=== PATIENT | female | born 1955 | race Caucasian/White ===

== ENCOUNTER 2017-04-05 18:15 | Emergency (ER) | payer OTHER ==
[~2017-04-05] VITALS: Ht 157.5 cm; Wt 62.5 kg
[~2017-04-05 18:15] MED LIST: ALBUAER2 INH; ASPEC81 PO; ESCI10TA17 PO; FENO48TA9 PO; METF1TAB53 PO; PRM625 PO; PROP1TAB PO; SIMV40TA2 PO
[2017-04-05 18:34] VITALS: TEMP 38.1; Ht 157.5 cm; Wt 62.5 kg
[2017-04-05] MEDS ORDERED: ACETAMINOPHEN 325 MG TAB PO STA (19:29)
[2017-04-05] MEDS ORDERED: SODIUM CHLORIDE 0.9% 1000ML 1,000 ML IV STA (19:29)
[2017-04-05 20:00] LABS: BASO % 0.4 %; BASO ABS # 0.04 K/uL (0-0.2); COMPLETE YES; HEMATOCRIT 37.9 % (37-47); IG% 3.1 %; LYMPH % 24.9 %; LYMPH ABS # 2.33 K/uL (1.2-3.4); MEAN CELL VOLUME 91.1 fL (80-100); MEAN CORPUSCULAR HEMOGLOBIN 30.8 pg (25-34); MEAN CORPUSCULAR HGB CONC 33.8 g/dl (32-36); MONO % 8.8 %; NEUT % 62.8 %; PLATELET COUNT 361 K/uL (130-400); RED BLOOD COUNT 4.16 M/uL (4.2-5.4); WHITE BLOOD COUNT 9.35 K/uL (4.8-10.8)
[2017-04-05 20:19] LABS: BUN/CREATININE RATIO 8.5 (10-20); CREATININE 0.79 mg/dl (0.60-1.20); POTASSIUM 4.1 mmol/L (3.5-5.1)
[2017-04-05 20:49] LABS: LYME DISEASE AB IGG NEG (NEG)
[2017-04-05 20:53] LABS: URINE APPEARANCE CLEAR (CLEAR); URINE BILIRUBIN NEG (NEG); URINE COLOR YELLOW; URINE NITRITE NEG (NEG); URINE SPECIFIC GRAVITY 1.003 (1.000-1.030); UROBILINOGEN NEG (NEG)
[2017-04-05 20:56] LABS: MANUAL MICROSCOPIC REQUIRED? NO; REVIEW REQ? NO
[2017-04-05 20:57] LABS: LYME DISEASE AB IGM EQUIVOCAL (NEG)
[2017-04-05] MEDS ORDERED: ONDANSETRON INJ 2 MG/ML 2 ML VIAL IV STA (20:59)
[2017-04-05] MEDS ORDERED: DOXYCYCLINE HYCLATE 100 MG CAP PO ONE (21:00)
--- NOTE | 2017-04-05 21:10 | DIAGNOSTIC IMAGING REPORT ---
TWO VIEW CHEST CLINICAL HISTORY: Fever. FINDINGS: PA and lateral chest radiographs are compared to study dated 01/16/2012. The heart is mildly enlarged and there is atherosclerotic calcification of the thoracic aorta. Pulmonary basilar is noncongested. Linear atelectasis is seen at both lung bases. The lungs are otherwise clear. No pleural effusion or pneumothorax is identified. The skeletal structures are osteopenic. Degenerative change is seen throughout the thoracic spine. Fusion hardware is noted in the lower cervical spine. Cholestatic clips are identified in the right upper quadrant. IMPRESSION: 1. Cardiomegaly without radiographic evidence of congestive failure. 2. There is no airspace consolidation typical for pneumonia or pleural effusion Electronically signed by: Baltazar Prince M.D. 04/05/2017 9:09 PM Dictated Date/Time: 04/05/2017 9:07 PM
[2017-04-05] MEDS ORDERED: ASPI81TA28 PO (21:16)
[2017-04-05] MEDS ORDERED: ACET325T96 PO (21:16)
[2017-04-05] MEDS ORDERED: DOXY100C2 PO (21:19)
[2017-04-05 21:57] VITALS: BP 87/61; PULSE 68; O2SAT 94
--- NOTE | 2017-04-06 00:22 | EMERGENCY ROOM VISIT NOTE ---
History Report prepared by Arian: Maryam Ruiz Under the Supervision of: Dr. Kenn Dc M.D. First contact with patient: 19:03 Chief Complaint: FLU LIKE SX Stated Complaint: FLU SX 102 TEMP- W/C History of Present Illness The patient is a 61 year old female who presents to the Emergency Room with complaints of a persistent fever for the past two weeks. She currently rates her discomfort as a 2/10 in severity. 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 She states that the day after the stick, she developed a persistent fever of 102 degrees Fahrenheit since. The patient states that she went to [facility] and had blood work done and was given a tetanus shot. She additionally notes diffuse joint aches. The patient states that she last vomited this past weekend. She additionally notes previous abdominal pain and a headache that have both resolved. The patient states that she had previous burning with urination that has resolved. She denies any chest pain, shortness of breath, rash, or diarrhea. The patient states that she owns a three acre lot and has many pets, but denies any known tick bites. She states that she has had her Hepatitis B shot. Source of History: patient Onset: past two weeks Position: other (global) Symptom Intensity: 2/10 Quality: other (fever) Timing: other (persistent) Associated Symptoms: + vomiting, + abdominal pain, + urinary symptoms, No chest pain, No SOB, No diarrhea, No rash Note: Associated Symptoms: joint aches Review of Systems See HPI for pertinent positives & negatives. A total of 10 systems reviewed and were otherwise negative. Past Medical & Surgical Medical Problems: (1) Diabetes Surgical Problems: (1) H/O: hysterectomy (2) Previous section (3) S/P cholecystectomy (4) S/P tonsillectomy and adenoidectomy Family History Cancer Diabetes mellitus FHx: gallbladder disease Heart disease Hypertension Social History Smoking Status: Former Smoker Smokeless Tobacco Use: No Alcohol Use: none Marital Status: Housing Status: lives with significant other Occupation Status: employed Current/Historical Medications Scheduled Aspirin (Aspirin Ec), 81 MG PO DAILY Doxycycline Hyclate (Vibramycin), 100 MG PO BID Escitalopram (Lexapro), 10 MG PO DAILY Metformin Hcl (Glucophage Ext Rel), 1,000 MG PO BID Scheduled PRN Acetaminophen Tab (Tylenol), 1-2 TAB PO for Pain or Fever Allergies Coded Allergies: Codeine (Verified Adverse Reaction, Mild, NAUSEA, 04/05/17) Physical Exam Vital Signs Date Time Temp Pulse Resp B/P (MAP) Pulse Ox O2 Delivery O2 Flow Rate FiO2 04/05/17 21:57 68 18 87/61 94 04/05/17 20:31 69 18 86/55 93 Room Air 04/05/17 18:34 38.1 89 18 102/67 91 Room Air Physical Exam Constitutional: Vital signs reviewed. Eyes: Pupils are equal round reactive to light. Conjunctiva are noninjected. ENT: Pharynx is clear without erythema or exudate. Mucous membranes are moist. Neck supple without meningeal signs. Respiratory: Clear to auscultation bilaterally. Breath sounds are equal bilaterally. Cardiovascular: Regular rate and rhythm. No rubs or gallops. GI: Soft, nondistended and nontender. Bowel sounds are present. Musculoskeletal: No peripheral edema. No lower extremity tenderness. Integumentary: No cyanosis. Neurological: The patient is awake and alert. No focal deficits. Psychiatric: Normal affect. Medical Decision & Procedures ER Provider Diagnostic Interpretation: X-ray results as stated below per interpretation by me and the radiologist: TWO VIEW CHEST CLINICAL HISTORY: Fever. FINDINGS: PA and lateral chest radiographs are compared to study dated 01/16/2012. The heart is mildly enlarged and there is atherosclerotic calcification of the thoracic aorta. Pulmonary basilar is noncongested. Linear atelectasis is seen at both lung bases. The lungs are otherwise clear. No pleural effusion or pneumothorax is identified. The skeletal structures are osteopenic. Degenerative change is seen throughout the thoracic spine. Fusion hardware is noted in the lower cervical spine. Cholestatic clips are identified in the right upper quadrant. IMPRESSION: 1. Cardiomegaly without radiographic evidence of congestive failure. 2. There is no airspace consolidation typical for pneumonia or pleural effusion Electronically signed by: Baltazar Prince M.D. 04/05/2017 9:09 PM Dictated Date/Time: 04/05/2017 9:07 PM Laboratory Results 04/05/17 19:38 Red Blood Count 4.16, Mean Corpuscular Volume 91.1, Mean Corpuscular Hemoglobin 30.8, Mean Corpuscular Hemoglobin Concent 33.8, Mean Platelet Volume 9.0, Neutrophils (%) (Auto) 62.8, Lymphocytes (%) (Auto) 24.9, Monocytes (%) (Auto) 8.8, Eosinophils (%) (Auto) 0.0, Basophils (%) (Auto) 0.4, Neutrophils # (Auto) 5.87, Lymphocytes # (Auto) 2.33, Monocytes # (Auto) 0.82, Eosinophils # (Auto) 0.00, Basophils # (Auto) 0.04 04/05/17 19:38 Test 04/05/17 19:38 04/05/17 20:20 White Blood Count 9.35 K/uL (4.8-10.8) Red Blood Count 4.16 M/uL (4.2-5.4) Hemoglobin 12.8 g/dL (12.0-16.0) Hematocrit 37.9 % (37-47) Mean Corpuscular Volume 91.1 fL (80-100) Mean Corpuscular Hemoglobin 30.8 pg (25-34) Mean Corpuscular Hemoglobin Concent 33.8 g/dl (32-36) Platelet Count 361 K/uL (130-400) Mean Platelet Volume 9.0 fL (7.4-10.4) Neutrophils (%) (Auto) 62.8 % Lymphocytes (%) (Auto) 24.9 % Monocytes (%) (Auto) 8.8 % Eosinophils (%) (Auto) 0.0 % Basophils (%) (Auto) 0.4 % Neutrophils # (Auto) 5.87 K/uL (1.4-6.5) Lymphocytes # (Auto) 2.33 K/uL (1.2-3.4) Monocytes # (Auto) 0.82 K/uL (0.11-0.59) Eosinophils # (Auto) 0.00 K/uL (0-0.5) Basophils # (Auto) 0.04 K/uL (0-0.2) RDW Standard Deviation 44.4 fL (36.4-46.3) RDW Coefficient of Variation 13.4 % (11.5-14.5) Immature Granulocyte % (Auto) 3.1 % Immature Granulocyte # (Auto) 0.29 K/uL (0.00-0.02) Anion Gap 6.0 mmol/L (3-11) Est Creatinine Clear Calc Drug Dose 65.0 ml/min Estimated GFR () 93.6 Estimated GFR (Non- 80.8 BUN/Creatinine Ratio 8.5 (10-20) Calcium Level 9.0 mg/dl (8.5-10.1) Total Bilirubin 0.7 mg/dl (0.2-1) Direct Bilirubin 0.1 mg/dl (0-0.2) Aspartate Amino Transf (AST/SGOT) 21 U/L (15-37) Alanine Aminotransferase (ALT/SGPT) 61 U/L (12-78) Alkaline Phosphatase 91 U/L (45-117) Total Protein 7.1 gm/dl (6.4-8.2) Albumin 3.3 gm/dl (3.4-5.0) Lyme Disease IgG Antibody NEG (NEG) Hepatitis B Surface Antigen NEG (NEG) Hepatitis C Antibody NEG (NEG) Urine Color YELLOW Urine Appearance CLEAR (CLEAR) Urine pH 7.0 (4.5-7.5) Urine Specific [place] 1.003 (1.000-1.030) Urine Protein NEG (NEG) Urine Glucose (UA) NEG (NEG) Urine Ketones NEG (NEG) Urine Occult Blood NEG (NEG) Urine Nitrite NEG (NEG) Urine Bilirubin NEG (NEG) Urine Urobilinogen NEG (NEG) Urine Leukocyte Esterase NEG (NEG) Laboratory results as reviewed by me. Medications Administered Medications (Trade) Dose Ordered Sig/Shalonda Route Start Time Stop Time Status Last Admin Dose Admin Sodium Chloride 1,000 ml @ 999 mls/hr Q1H1M STAT IV 04/05/17 19:29 04/05/17 20:29 DC 04/05/17 19:29 999 MLS/HR Acetaminophen (Tylenol Tab) 650 mg NOW STAT PO 04/05/17 19:29 04/05/17 19:30 DC 04/05/17 19:29 650 MG Ondansetron HCl (Zofran Inj) 4 mg NOW STAT IV 04/05/17 20:59 04/05/17 21:00 DC 04/05/17 20:59 4 MG Doxycycline Hyclate (Vibramycin Cap) 100 mg ONE ONCE PO 04/05/17 21:00 04/05/17 21:01 DC 04/05/17 21:00 100 MG ED Course 1905: The patient was evaluated in room B9. A complete history and physical exam was performed. 1928: Ordered Tylenol Tab 650 mg PO, Sodium Chloride 1000 ml @ 999 mls/hr IV. 2058: Ordered Zofran Inj 4 mg IV, Vibramycin Cap 100 mg PO. 2114: I reevaluated the patient and she is resting comfortably. I discussed the test results with her and I discussed the treatment plan. She verbalized complete understanding and agreement. She is ready to go home. 2129: I reevaluated the patient and her blood pressure is 87/61. She denies any lightheadedness, chest pain, or shortness of breath. She states that her blood pressure typically runs 91/60 and feels fine to go home. Medical Decision This is a 61-year-old female who presents with fever, joint pains, headache and myalgias. Differential diagnosis include Lyme disease, UTI, pyelonephritis, pneumonia, viral syndrome. I did perform a limited focused review of portions of the patient's old chart on the electronic medical record. The patient has had no recent pertinent visits to this hospital. Blood Pressure Screening: Patient was found to have normal blood pressure on screening and does not require follow-up. Medication Reconciliation: I attest that I have personally reviewed the patient' s current medication list. I did evaluate the patient as noted above. IV access was established. I did order and personally review the patient's chest x-ray as described above. There is no evidence of pneumonia. Blood cultures were ordered. I did order and review the patient's blood work as noted in the electronic medical record. Her white blood cell count is not elevated. Lyme IgM is equivocal. The patient was given normal saline IV and Tylenol. I did reassess the patient. I did discuss the test results with her. Her blood pressure was slightly low but she states that she normally runs about that range and had no symptoms of lightheadedness. I did recommend treatment with doxycycline and close follow up with her doctor. She was given a prescription for doxycycline and her first dose here. She was discharged in good condition. Impression Primary Impression: Lyme disease Scribe Attestation The scribe's documentation has been prepared under my direct and personally reviewed by me in its entirety. I confirm that the note above accurately reflects all work, treatment, procedures, and medical decision making performed by me. Departure Information Dispostion Home / Self-Care Prescriptions Doxycycline Hyclate (VIBRAMYCIN) 100 Mg Cap 100 MG PO BID for 21 Days, #42 CAP Prov: Kenn Dc M.D. 04/05/17 Referrals Jessica Portillo DO (PCP) Forms HOME CARE DOCUMENTATION FORM, IMPORTANT VISIT INFORMATION Patient Instructions ED Lyme Disease, [facility], [facility] Additional Instructions You have been examined and treated today on an emergency basis only. This is not a substitute for, or an effort to provide, complete comprehensive medical care. It is impossible to recognize and treat all injuries or illnesses in a single emergency department visit. It is therefore important that you follow up closely with your physician. Call as soon as possible for an appointment. Return for worsening symptoms or if you develop chest pain, shortness of breath , palpitations, severe headache or any other concerning symptoms.
[2017-04-11 09:43] LABS: 18KDIGG BAND REACTIVE (NONREACTIVE); 23KDIGG BAND NONREACTIVE (NONREACTIVE); 23KDIGM BAND REACTIVE (NONREACTIVE); 28KDIGG BAND NONREACTIVE (NONREACTIVE); 30KDIGG BAND NONREACTIVE (NONREACTIVE); 39KDIGG BAND NONREACTIVE (NONREACTIVE); 39KDIGM BAND NONREACTIVE (NONREACTIVE); 41KDIGG BAND NONREACTIVE (NONREACTIVE); 41KDIGM BAND NONREACTIVE (NONREACTIVE); 45KDIGG BAND NONREACTIVE (NONREACTIVE); 58KDIGG BAND NONREACTIVE (NONREACTIVE); 66KDIGG BAND NONREACTIVE (NONREACTIVE); 93KDIGG BAND NONREACTIVE (NONREACTIVE)
== END 2017-04-05 21:59 | disposition home or self-care (01) ==
LOC: C.EDB 18:16
DX: A69.20 Lyme disease, unspecified (principal); E11.9 Type 2 diabetes mellitus without complications; Z90.710 Acquired absence of both cervix and uterus; Z90.49 Acquired absence of other specified parts of digestive tract; Z98.890 Other specified postprocedural states; Z87.891 Personal history of nicotine dependence; Z79.82 Long term (current) use of aspirin; Z79.84 Long term (current) use of oral hypoglycemic drugs; Z79.899 Other long term (current) drug therapy; Z88.5 Allergy status to narcotic agent; Z80.9 Family history of malignant neoplasm, unspecified; Z83.3 Family history of diabetes mellitus; Z83.79 Family history of other diseases of the digestive system; Z82.49 Family history of ischemic heart disease and other diseases of the circulatory system

== ENCOUNTER 2017-09-16 12:13 | Emergency (ER) | payer OTHER ==
[~2017-09-16] VITALS: Ht 157.5 cm; Wt 62.6 kg
[~2017-09-16 12:13] MED LIST changes: +ACET325T96 PO; -ALBUAER2 INH; -ASPEC81 PO; +ASPI81TA28 PO; +DOXY100C2 PO; -FENO48TA9 PO; -PRM625 PO; -PROP1TAB PO; -SIMV40TA2 PO
[2017-09-16 12:20] VITALS: Ht 157.5 cm; Wt 62.6 kg
[2017-09-16] MEDS ORDERED: INSDGIPEN SC (12:43)
[2017-09-16] MEDS ORDERED: ONDANSETRON INJ 2 MG/ML 2 ML VIAL IV STA (12:44)
[2017-09-16] MEDS ORDERED: SODIUM CHLORIDE 0.9% 1000ML 1,000 ML IV STA (12:44)
--- NOTE | 2017-09-16 12:51 | EMERGENCY ROOM VISIT NOTE ---
History Report prepared by Arian: Pb Shepard Under the Supervision of: Dr. Alexi Tay D.O. First contact with patient: 12:42 Chief Complaint: HYPERGLYCEMIA Stated Complaint: HIGH BLOOD PRESSURE Nursing Triage Summary: patient states she is unable to get her blood sugar down it is 400's. she has been nauseated and vomting today. Dr Landon sent to ER no appointments. takes lantus at night and metformin this am but vomited and was unable to keep it down History of Present Illness The patient is a 61 year old diabetic female who presents to the Emergency Room with complaints of persistent hyperglycemia that started this morning. She states that she cannot get her blood sugar down this morning, and it was around 400 all morning. She notes that she vomited twice, and then went to work, and vomited a few more times, which decreased her blood sugar to around 350. The patient states that she called her primary care physician, but she did not have any appointments today, so the patient was told to come here for evaluation. The patient adds that she has been nauseous this morning, with "funny vision". She states that one time previously when her blood sugar was high, she had symptoms like this. She notes no other medical conditions. The patient takes Lantus 12 units at night, and Metformin 100 mg twice per day. She notes that she is taking her medications. She denies any chest pain, headaches, shortness of breath, abdominal pain, cold symptoms, leg swelling, or urinary symptoms. She notes no history of DKA. Source of History: patient Onset: This morning Position: other (global - high blood sugar) Symptom Intensity: 400 blood sugar Timing: other (persistent) Associated Symptoms: + nausea, No headache, No chest pain, No SOB, No abdominal pain, No urinary symptoms Note: Associated symptoms: "Funny vision". Denies leg swelling. Review of Systems See HPI for pertinent positives & negatives. A total of 10 systems reviewed and were otherwise negative. Past Medical & Surgical Medical Problems: (1) Diabetes Surgical Problems: (1) H/O: hysterectomy (2) Previous section (3) S/P cholecystectomy (4) S/P tonsillectomy and adenoidectomy Family History Cancer Diabetes mellitus FHx: gallbladder disease Heart disease Hypertension Social History Smoking Status: Former Smoker Alcohol Use: none Marital Status: Housing Status: lives with significant other Occupation Status: employed Current/Historical Medications Scheduled Aspirin (Aspirin Ec), 81 MG PO DAILY Escitalopram (Lexapro), 10 MG PO DAILY Insulin Glargine (Lantus Solostar), 12 UNITS SC QPM Metformin Hcl (Glucophage Ext Rel), 1,000 MG PO BID Scheduled PRN Acetaminophen Tab (Tylenol), 1-2 TAB PO for Pain or Fever Allergies Coded Allergies: Codeine (Verified Adverse Reaction, Mild, NAUSEA, 09/16/17) Physical Exam Vital Signs Date Time Temp Pulse Resp B/P (MAP) Pulse Ox O2 Delivery O2 Flow Rate FiO2 09/16/17 14:56 36.9 78 16 103/62 95 Room Air 09/16/17 13:21 66 09/16/17 12:20 36.5 83 20 136/82 95 Room Air Physical Exam GENERAL: Patient is awake, alert, and in no acute distress. Patient is resting comfortably and showing no signs of anxiety EYES: The conjunctivae are clear. The pupils are round and reactive. EARS, NOSE, MOUTH AND THROAT: The nose is without any evidence of any deformity. Mucous membranes are moist tongue is midline NECK: The neck is nontender and supple. RESPIRATORY: Normal respiratory effort is noted there is no evidence of wheezing rhonchi or rales CARDIOVASCULAR: Tachycardic rate with a regular rhythm noted. GASTROINTESTINAL: The abdomen is soft. Bowel sounds are present in all quadrants. Abdomen is nontender MUSCULOSKELETAL/EXTREMITIES: There is no evidence of gross deformity full range of motion is noted in the hips and shoulders SKIN: There is no obvious evidence of any rash. There are no petechiae, pallor or cyanosis noted. NEUROLOGIC: Patient is awake alert and oriented x3 strength is symmetric patellar reflexes are 2+ bilaterally Medical Decision & Procedures ER Provider Diagnostic Interpretation: X-ray results as stated below per interpretation by me and the radiologist. CHEST ONE VIEW PORTABLE CLINICAL HISTORY: Pain, rating to the abdomen. Hypertension. COMPARISON STUDY: No previous studies for comparison. FINDINGS: The cardiac and mediastinal contours are normal. There is no evidence of focal pulmonary consolidation. There is no evidence of failure. No pleural effusions are visualized.[ There are postsurgical changes of the lower cervical spine. There is no free intraperitoneal air. A 5 mm left upper lung zone opacity, likely represents a summation or postinflammatory nodule. IMPRESSION: 1. 5 mm left upper lung zone opacity, likely are presenting a summation or postinflammatory nodule 2. No evidence of acute parenchymal consolidation 3. No evidence of free intraperitoneal air Electronically signed by: Tacos Garrison M.D. 09/16/2017 1:11 PM Dictated Date/Time: 09/16/2017 1:10 PM Laboratory Results 09/16/17 13:00 Red Blood Count 4.70, Mean Corpuscular Volume 90.0, Mean Corpuscular Hemoglobin 31.5, Mean Corpuscular Hemoglobin Concent 35.0, Mean Platelet Volume 9.1, Neutrophils (%) (Auto) 69.3, Lymphocytes (%) (Auto) 23.4, Monocytes (%) (Auto) 5.7, Eosinophils (%) (Auto) 0.9, Basophils (%) (Auto) 0.2, Neutrophils # (Auto) 9.42, Lymphocytes # (Auto) 3.19, Monocytes # (Auto) 0.78, Eosinophils # (Auto) 0.12, Basophils # (Auto) 0.03 09/16/17 13:00 Test 09/16/17 13:00 09/16/17 13:01 09/16/17 13:25 09/16/17 14:55 White Blood Count 13.61 K/uL (4.8-10.8) Red Blood Count 4.70 M/uL (4.2-5.4) Hemoglobin 14.8 g/dL (12.0-16.0) Hematocrit 42.3 % (37-47) Mean Corpuscular Volume 90.0 fL (80-100) Mean Corpuscular Hemoglobin 31.5 pg (25-34) Mean Corpuscular Hemoglobin Concent 35.0 g/dl (32-36) Platelet Count 293 K/uL (130-400) Mean Platelet Volume 9.1 fL (7.4-10.4) Neutrophils (%) (Auto) 69.3 % Lymphocytes (%) (Auto) 23.4 % Monocytes (%) (Auto) 5.7 % Eosinophils (%) (Auto) 0.9 % Basophils (%) (Auto) 0.2 % Neutrophils # (Auto) 9.42 K/uL (1.4-6.5) Lymphocytes # (Auto) 3.19 K/uL (1.2-3.4) Monocytes # (Auto) 0.78 K/uL (0.11-0.59) Eosinophils # (Auto) 0.12 K/uL (0-0.5) Basophils # (Auto) 0.03 K/uL (0-0.2) RDW Standard Deviation 42.8 fL (36.4-46.3) RDW Coefficient of Variation 13.1 % (11.5-14.5) Immature Granulocyte % (Auto) 0.5 % Immature Granulocyte # (Auto) 0.07 K/uL (0.00-0.02) Prothrombin Time 10.0 SECONDS (9.0-12.0) Prothromb Time International Ratio 1.0 (0.9-1.1) Activated Partial Thromboplast Time 24.6 SECONDS (21.0-31.0) Partial Thromboplastin Ratio 0.9 Anion Gap 9.0 mmol/L (3-11) Est Creatinine Clear Calc Drug Dose 66.7 ml/min Estimated GFR () 96.6 Estimated GFR (Non- 83.3 BUN/Creatinine Ratio 15.1 (10-20) Calcium Level 8.9 mg/dl (8.5-10.1) Total Bilirubin 0.4 mg/dl (0.2-1) Direct Bilirubin 0.1 mg/dl (0-0.2) Aspartate Amino Transf (AST/SGOT) 9 U/L (15-37) Alanine Aminotransferase (ALT/SGPT) 23 U/L (12-78) Alkaline Phosphatase 93 U/L (45-117) Total Creatine Kinase 128 U/L (26-192) Creatine Kinase MB 2.2 ng/ml (0.5-3.6) Creatine Kinase MB Ratio 1.7 (0-3.0) Troponin I < 0.015 ng/ml (0-0.045) Total Protein 7.3 gm/dl (6.4-8.2) Albumin 4.0 gm/dl (3.4-5.0) Lipase 231 U/L (73-393) Beta-Hydroxybutyric Acid 1.18 mg/dL (0.2-2.81) Venous Blood pH 7.39 (7.36-7.41) Venous Blood Partial Pressure CO2 44 mmHg (38.0-50.0) Venous Blood Partial Pressure O2 41 mmHg Venous Blood HCO3 26 mmol/L Venous Blood Oxygen Saturation 76.6 % Venous Blood Base Excess 1.0 mEq/L Urine Color YELLOW Urine Appearance CLEAR (CLEAR) Urine pH 5.0 (4.5-7.5) Urine Specific [place] 1.022 (1.000-1.030) Urine Protein NEG (NEG) Urine Glucose (UA) 3+ (NEG) Urine Ketones NEG (NEG) Urine Occult Blood NEG (NEG) Urine Nitrite NEG (NEG) Urine Bilirubin NEG (NEG) Urine Urobilinogen NEG (NEG) Urine Leukocyte Esterase NEG (NEG) Bedside Glucose 158 mg/dl (70-90) Laboratory results per my review. Medications Administered Medications (Trade) Dose Ordered Sig/Shalonda Route Start Time Stop Time Status Last Admin Dose Admin Sodium Chloride 1,000 ml @ 999 mls/hr Q1H1M STAT IV 09/16/17 12:44 09/16/17 13:44 DC 09/16/17 13:05 999 MLS/HR Ondansetron HCl (Zofran Inj) 4 mg NOW STAT IV 09/16/17 12:44 09/16/17 12:46 DC 09/16/17 13:20 4 MG Insulin Human Regular (novoLIN-R U-100 PER UNIT) 6 units NOW STAT IV 09/16/17 13:51 09/16/17 13:52 DC 09/16/17 13:51 6 UNITS ECG Indication: nausea Rate (beats per minute): 74 Rhythm: normal sinus Findings: no ectopy, other (no acute ST segment abnormalities) Change: no significant change (from 10/29/10) ED Course 1242: The patient was evaluated in room B2. A complete history and physical examination were performed. 1244: Ordered Zofran Inj 4 mg IV, NSS 1000 ml @ 999 mls/hr IV. 1351: Ordered Novolin-R U-100 PER UNIT 6 units IV. 1459: Ordered Novolin-R U-100 PER UNIT 4 units IV. 1505: Upon reevaluation, the patient is feeling better. I discussed the results and treatment plan with her. She verbalized agreement of the treatment plan. She was discharged home. Medical Decision Differential diagnosis: Etiologies such as metabolic, infection, hypo/hyperglycemia, electrolyte abnormalities, cardiac sources, intracerebral event, toxicologic, neurologic, as well as others were entertained. Nursing notes reviewed. The patient is a 61-year-old female who presented to the emergency department with difficulty controlling her blood sugar. The patient has a history of insulin-dependent diabetes. She's been trying to cover her hyperglycemia with her insulin but has been unable to since this morning. She denies any other specific complaints. She did not have a fever. Her abdominal exam was not consistent with an acute surgical abdomen. The patient was treated with IV fluids and IV insulin in the emergency department. On subsequent reevaluation she was feeling much better. Her blood sugar had improved significantly. Her bicarbonate level was appropriate and she did not have significant acidosis. The patient was encouraged to continue all medications as prescribed and call her primary care physician to schedule follow-up appointment. Otherwise she was encouraged to return to the emergency department immediately if symptoms change worsen or the need arises. Medication Reconcilliation Current Medication List: was personally reviewed by me Blood Pressure Screening Patient's blood pressure: Normal blood pressure Impression Primary Impression: Hyperglycemia Scribe Attestation The scribe's documentation has been prepared under my direction and personally reviewed by me in its entirety. I confirm that the note above accurately reflects all work, treatment, procedures, and medical decision making performed by me. Departure Information Dispostion Home / Self-Care Referrals Jessica Portillo DO (PCP) Forms HOME CARE DOCUMENTATION FORM, IMPORTANT VISIT INFORMATION, WORK / SCHOOL INSTRUCTIONS, Work Instructions Patient Instructions Hyperglycemia, My [facility] Additional Instructions Continue all medications as prescribed. Continue to monitor your blood sugar as instructed. Follow-up with your family this week for reevaluation. Drink plenty clear liquids. Return to the emergency apartment immediately if symptoms change worsen or the need arises. I would recommend a repeat chest x-ray in 1 month to further evaluate the findings on today's chest x-ray.
[2017-09-16 13:10] LABS: VEN BLD GAS O2 SATURATION 76.6 %
--- NOTE | 2017-09-16 13:13 | DIAGNOSTIC IMAGING REPORT ---
CHEST ONE VIEW PORTABLE CLINICAL HISTORY: Pain, rating to the abdomen. Hypertension. COMPARISON STUDY: No previous studies for comparison. FINDINGS: The cardiac and mediastinal contours are normal. There is no evidence of focal pulmonary consolidation. There is no evidence of failure. No pleural effusions are visualized.[ There are postsurgical changes of the lower cervical spine. There is no free intraperitoneal air. A 5 mm left upper lung zone opacity, likely represents a summation or postinflammatory nodule. IMPRESSION: 1. 5 mm left upper lung zone opacity, likely are presenting a summation or postinflammatory nodule 2. No evidence of acute parenchymal consolidation 3. No evidence of free intraperitoneal air Electronically signed by: Tacos Garrison M.D. 09/16/2017 1:11 PM Dictated Date/Time: 09/16/2017 1:10 PM
[2017-09-16 13:19] LABS: BASO % 0.2 %; BASO ABS # 0.03 K/uL (0-0.2); COMPLETE YES; EOS % 0.9 %; HEMATOCRIT 42.3 % (37-47); IG% 0.5 %; LYMPH % 23.4 %; LYMPH ABS # 3.19 K/uL (1.2-3.4); MEAN CORPUSCULAR HEMOGLOBIN 31.5 pg (25-34); MEAN PLATELET VOLUME 9.1 fL (7.4-10.4); MONO % 5.7 %; NEUT % 69.3 %; PLATELET COUNT 293 K/uL (130-400); WHITE BLOOD COUNT 13.61 K/uL (4.8-10.8)
[2017-09-16 13:29] LABS: PARTIAL THROMBOPLASTIN RATIO 0.9
[2017-09-16 13:39] LABS: AST/SGOT 9 U/L (15-37); BLOOD UREA NITROGEN 12 mg/dl (7-18); BUN/CREATININE RATIO 15.1 (10-20); CALCIUM 8.9 mg/dl (8.5-10.1); CARBON DIOXIDE 24 mmol/L (21-32); CHLORIDE 99 mmol/L (98-107); CREATININE 0.77 mg/dl (0.60-1.20); GLUCOSE 319 mg/dl (70-99); POTASSIUM 4.2 mmol/L (3.5-5.1); SODIUM 132 mmol/L (136-145)
[2017-09-16 13:44] LABS: ALKALINE PHOSPHATASE 93 U/L (45-117); ALT/SGPT 23 U/L (12-78); BETA-HYDROXYBUTYRATE 1.18 mg/dL (0.2-2.81); CKMB/CK RATIO 1.7 (0-3.0)
[2017-09-16] MEDS ORDERED: NovoLIN-R INSULIN PER UNIT CHARGE IV STA ×2 (13:51→14:59)
[2017-09-16 13:54] LABS: URINE APPEARANCE CLEAR (CLEAR); URINE BILIRUBIN NEG (NEG); URINE COLOR YELLOW; URINE NITRITE NEG (NEG); URINE SPECIFIC GRAVITY 1.022 (1.000-1.030); UROBILINOGEN NEG (NEG)
[2017-09-16 13:58] LABS: MANUAL MICROSCOPIC REQUIRED? NO; REVIEW REQ? NO
[2017-09-16 14:56] VITALS: BP 103/62; PULSE 78; TEMP 36.9; O2SAT 95
== END 2017-09-16 15:18 | disposition home or self-care (01) ==
LOC: C.EDB 12:14
DX: E11.65 Type 2 diabetes mellitus with hyperglycemia (principal); Z90.710 Acquired absence of both cervix and uterus; Z90.49 Acquired absence of other specified parts of digestive tract; Z87.891 Personal history of nicotine dependence; Z79.4 Long term (current) use of insulin; Z79.82 Long term (current) use of aspirin; Z79.84 Long term (current) use of oral hypoglycemic drugs; Z79.899 Other long term (current) drug therapy; Z80.9 Family history of malignant neoplasm, unspecified; Z83.3 Family history of diabetes mellitus; Z83.79 Family history of other diseases of the digestive system; Z82.49 Family history of ischemic heart disease and other diseases of the circulatory system

== ENCOUNTER → 2017-11-11 | Outpatient (CLI) | payer OTHER ==
[~2017-11-11] MED LIST changes: +ACET-1693 PO; -ACET325T96 PO; -DOXY100C2 PO; +INSDGIPEN SC
--- NOTE | 2017-11-11 18:04 | DIAGNOSTIC IMAGING REPORT ---
CHEST 2 VIEWS ROUTINE HISTORY: 62 years-old Female R93.8 Chest x-ray [id number] follow-up study in a patient with questioned nodule of the left upper lobe seen on comparison study COMPARISON: Chest radiograph 09/16/2017 and chest radiographs 04/05/2017 TECHNIQUE: PA view of the chest FINDINGS: Cardiac silhouette is upper limits of normal in size, unchanged. Atherosclerosis of the aorta. There is no pneumothorax, pleural effusion, focal airspace consolidation or overt pulmonary edema. The previously described nodular opacity of the left upper lobe is not clearly seen on today's study. Bones of the chest appear grossly intact. Fusion hardware of the lower cervical spine. Cholecystectomy clips noted. IMPRESSION: 1. No acute process of the chest. 2. Previously questioned subcentimeter nodule of the left upper lobe is not identified on today's exam. The above report was generated using voice recognition software. It may contain grammatical, syntax or spelling errors. Electronically signed by: Alvarez Hadley M.D. 11/11/2017 6:03 PM Dictated Date/Time: 11/11/2017 6:00 PM
[2017-11-12 06:45] LABS: HEMOGLOBIN A1C 11.1 % (4.5-5.6)
== END | disposition home or self-care (01) ==
LOC: C.LAB 17:24
PROVIDERS: ATTEND Physician Assistant
DX: R93.8 Abnormal findings on diagnostic imaging of other specified body structures (principal); E11.65 Type 2 diabetes mellitus with hyperglycemia

== ENCOUNTER → 2018-05-19 | Outpatient (CLI) | payer OTHER | END | disposition home or self-care (01) | LOC: C.LABSPEC 06:00 | PROVIDERS: ATTEND Physician Assistant | DX: R35.8 Other polyuria (principal) ==

== ENCOUNTER 2019-03-12 06:12 | Observation (INO) ==
--- NOTE | 2019-02-19 17:10 | PAT Medication Instructions ---
Medication Instructions Date of Service February 19, 2019 Home Medications aspirin [Aspir-81] 81 mg PO QAM dulaglutide [Trulicity] 1.5 mg SUBCUT WK insulin glargine [Lantus U-100 Insulin] 14 unit SUBCUT BID metformin 1,000 mg PO BID propranolol 20 mg PO QAM Continue as directed dulaglutide [Trulicity] 1.5 mg SUBCUT WK ASK your surgeon for instructions aspirin [Aspir-81] 81 mg PO QAM DO NOT take the morning of surgery metformin 1,000 mg PO BID Take morning of surgery With a small sip of water, OTHERWISE NOTHING TO EAT OR DRINK AFTER MIDNIGHT: propranolol 20 mg PO QAM Take evening before surgery insulin glargine [Lantus U-100 Insulin] 14 unit SUBCUT BID metformin 1,000 mg PO BID Insulin Dependent Diabetic Patients * Test your blood sugar the morning of surgery * If Blood Sugar is GREATER THAN 150, take HALF of your regular dose of: insulin glargine [Lantus U-100 Insulin] -- TAKE 7 UNITS * If Blood Sugar is LESS THAN 150, DO NOT TAKE ANY: insulin glargine [Lantus U- 100 Insulin] Other Notes If you have any questions please call us at [phone] or [phone] or [phone] or [phone]
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
[2019-02-20 10:18] LABS: Basophils # (auto) 0.04 K/uL (0-0.2); Basophils % (auto) 0.4 %; Eosinophils # (auto) 0.26 K/uL (0-0.5); Eosinophils % (auto) 2.9 %; Hematocrit (blood only) 40.6 % (37-47); Immature Granulocytes # (auto) 0.03 K/uL (0.00-0.02); Immature Granulocytes % (auto) 0.3 %; Lymphocytes # (auto) 2.92 K/uL (1.2-3.4); Lymphocytes % (auto) 32.4 %; Mean Corpuscular Hgb Conc 34.5 g/dL (32-36); Mean Corpuscular Volume 92.1 fL (80-100); Monocytes # (auto) 0.59 K/uL (0.11-0.59); Monocytes % (auto) 6.6 %; Neutrophils # (auto) 5.16 K/uL (1.4-6.5); Neutrophils % (auto) 57.4 %; Platelet Count 295 K/uL (130-400); RDW Coefficient of Variation 13.5 % (11.5-14.5); RDW Standard Deviation 45.6 fL (36.4-46.3); Red Blood Count 4.41 M/uL (4.2-5.4)
--- NOTE | 2019-02-20 10:19 | XRay Report ---
XR chest Pre-admission PA/Lat HISTORY: 63 years-old Female pat preoperative exam. No acute chest complaints COMPARISON: Chest radiograph -2017 TECHNIQUE: PA and lateral views of the chest FINDINGS: Cardiomediastinal and hilar silhouettes are within normal limits. No pneumothorax, pleural effusion, focal airspace consolidation or overt pulmonary edema. Lungs are mildly hyperinflated with diabetic f lattening. Mild chronic interstitial opacities. Degenerative changes of the shoulders and spine. Fusi on hardware of the cervical spine. Cholecystectomy. IMPRESSION: No acute process. The above report was generated using voice recognition software. It may contain grammatical, syntax o r spelling errors. Electronically signed by: Alvarez Hadley M.D. 02/20/2019 10:17 AM
[2019-02-20 10:27] LABS: Partial Thromboplastin Ratio 0.9; Partial Thromboplastin Time 23.9 Seconds (21.0-31.0); Prothrombin Time 10.1 Seconds (9.0-12.0)
--- NOTE | 2019-03-11 09:46 | History and Physical Report ---
DATE OF ADMISSION: 03/12/2019 CHIEF COMPLAINT: Neck pain, trapezius pain, paresthesia, and numbness and tingling. HISTORY OF PRESENT ILLNESS: Sandra is pleasant. She is 63. She had a breakdown of her prior fusion. She had neck fusion of her spine 20 years ago, did well. Now she has developed some instability at c4-L5 lumbar spine. No worrisome signs of fever, sweats or chills. PAST MEDICAL HISTORY: Diabetes, Lyme disease. PAST SURGICAL HISTORY: Hysterectomy, , cholecystectomy, and C-spine surgery. ALLERGIES: Negative. CURRENT MEDICATIONS: Metformin, Lantus, propranolol, Motrin. FAMILY HISTORY: Heart disease, diabetes. SOCIAL HISTORY: She is . No alcohol, tobacco. REVIEW OF SYSTEMS: A 12-system review, she denies any fever, sweats, chills, bowel and bladder issues. Denies any chest pain, palpitations, angina. Denies asthma, wheezing, shortness of breath. No nausea, vomiting. She does have a tremor secondary to anxiety. She is diabetic. PHYSICAL EXAMINATION: GENERAL: 5 feet 2 inches, 122 pounds. Alert, oriented. VITAL SIGNS: Blood pressure 120/80, pulse 80, respiratory rate 16. CARDIAC: Normal S1 and S2, no S3. LUNGS: Clear to auscultation. No rales, rhonchi, wheezing. ABDOMEN: Soft, nontender. LYMPHATICS: There is no adenopathy. NEUROLOGIC: She is alert, oriented. She has weakness to biceps function, wrist extensors, triceps function. There is no hyperreflexia, clonus. IMAGING DATA: X-rays demonstrate complete breakdown of the C4-5 area and spondylolisthesis of the spine. PLAN: Includes removal of plate, C5-C7, iliac crest bone grafting, C4-C5 and C7-T1. MTDD
[~2019-03-12 06:12] MED LIST changes: -ACET-1693 PO; -ASPI81TA28 PO; +CEFAZOLIN 2000MG 2,000 MG/15 ML SYR IV SCH; -ESCI10TA17 PO; -INSDGIPEN SC; +LR 15ML/HR IV SCH; -METF1TAB53 PO; +SCOPOLAMINE 1.5 MG TDSY TD SCH; +SODIUM CHLORIDE 0.9% 1,000 ML IV SCH
[2019-03-12] MEDS ORDERED: MIDAZOLAM HCL 1 MG/ML 2ML VIAL ONE (06:44)
[2019-03-12] MEDS ORDERED: fentaNYL citrate 100 MCG/2 ML VIAL ONE ×2 (06:44→09:17)
[2019-03-12] MEDS ORDERED: ePHEDrine sulfate 50 MG/ML AMP IV PRN (06:52)
[2019-03-12] MEDS ORDERED: PHENYLEPHRINE 100MCG/ML 5ML SYR IV PRN (06:52)
[2019-03-12] MEDS ORDERED: ONDANSETRON INJ 2 MG/ML 2 ML VIAL IV PRN (06:52)
[2019-03-12] MEDS ORDERED: ATROPINE SULFATE 0.1 MG/ML 10ML SYR IV PRN (06:52)
[2019-03-12] MEDS ORDERED: PROMETHAZINE HCL 12.5 MG in SODIUM CHLORIDE 0.9% 50 ML IV PRN (06:52)
[2019-03-12] MEDS ORDERED: PROPOFOL IV EMULSION 10 MG/ML 20 ML VIAL IV ONE (06:55)
[2019-03-12] MEDS ORDERED: ROCURONIUM BROMIDE 10 MG/ML 5 ML VIAL ONE (06:55)
[2019-03-12] MEDS ORDERED: LIDOCAINE HCL 2% 2 ML VIAL/AMP(20MG/ML) INFIL ONE (06:55)
[2019-03-12] MEDS ORDERED: ONDANSETRON INJ 2 MG/ML 2 ML VIAL ONE (06:55)
[2019-03-12] MEDS ORDERED: THROMBIN FOR SOLN 20000 UNIT KIT ONE (06:59)
[2019-03-12] MEDS ORDERED: BACITRACIN INJ 50,000 UNIT VIAL ONE (06:59)
[2019-03-12] MEDS ORDERED: BUPIVACAINE/EPINEPHRINE 0.5% MPF 1:200,000 30 ML VIAL ONE (06:59)
[2019-03-12] MEDS ORDERED: GELATIN SPONGE SZ 100 ONE (06:59)
--- NOTE | 2019-03-12 07:41 | History & Physical Bridge Note ---
Date of Service March 12, 2019 History & Physical Bridge Note I have examined the patient, reviewed the History & Physical and in the interval since the performance of the History & Physical I have noted the following changes of clinical significance: no changes noted
[2019-03-12] MEDS ORDERED: METOCLOPRAMIDE HCL INJ 5 MG/ML 2 ML VIAL ONE (08:21)
[2019-03-12] MEDS ORDERED: ePHEDrine sulfate 50 MG/ML SYR ONE (08:41)
[2019-03-12] MEDS ORDERED: NEOSTIGMINE METHYLSULFATE 5 MG/5 ML SYR ONE (09:06)
[2019-03-12] MEDS ORDERED: GLYCOPYRROLATE 0.2 MG/ML VIAL ONE ×2 (09:06→09:14)
--- NOTE | 2019-03-12 09:35 | Post Operative Brief Note ---
Immediate Post Op Note v1 Date of Surgery March 12, 2019 Pre & Post Diagnosis Operation Date: 03/12/19 07:30 Pre-Op Diagnosis: Cervical Spondylosis, Spondyolisthesis C7-T1 Post-Op Diagnosis: Cervical Spondylosis, Spondyolisthesis C7-T1 Procedure Operation Date: 03/12/19 07:30 Actual Procedures p removal anterior plate C4--C7, C4-C5, Anterior Cervical Disectomy and Fusion with Left Iliac Crest Bone Graft, insertion of globus IM plate(Left) - Gilbert Estrella DO Surgeon Gilbert Estrella DO Swamper dex Estimated Blood Loss 10 Findings Consistent with Post-Op Diagnosis Drains Darwin-Hall Drain Complications none Disposition Accompanied Patient To Recovery: Yes Overlapping Procedure I was immediately available: during the entire case.
--- NOTE | 2019-03-12 09:35 | Post Operative Brief Note ---
Immediate Post Op Note v1 Date of Surgery March 12, 2019 Pre & Post Diagnosis Operation Date: 03/12/19 07:30 Pre-Op Diagnosis: Cervical Spondylosis, Spondyolisthesis C7-T1 Post-Op Diagnosis: Cervical Spondylosis, Spondyolisthesis C7-T1 Procedure Operation Date: 03/12/19 07:30 Actual Procedures p removal anterior plate C5-C7, C4-C5, Anterior Cervical Disectomy and Fusion with Left Iliac Crest Bone Graft, insertion of coalition cage from [facility].- Gilbert Estrella DO Surgeon Gilbert Estrella DO Computer Sciences Professor dex Estimated Blood Loss 10 Findings Consistent with Post-Op Diagnosis Drains Darwin-Hall Drain
--- NOTE | 2019-03-12 09:40 | Fluoroscopy Report ---
FL spine 1V any level CLINICAL HISTORY: C4-C5,C7-T1 ACDF COMPARISON STUDY: Cervical spine 02/13/2019. FLUOROSCOPY TIME: 2.3 seconds. FINDINGS: Single fluoroscopic spot image of the cervical spine demonstrates anterior cervical discect mattie and fusion at C4-C5. The hardware appears intact. IMPRESSION: Fluoroscopy provided for C4-C5 ACDF. Electronically signed by: David Medina M.D. 03/12/2019 9:39 AM
[2019-03-12] MEDS: fentaNYL citrate 100 MCG/2 ML VIAL IV PRN ×4 (09:46→10:01)
[2019-03-12] MEDS: HYDROmorphone INJ 1 MG/ML SYRINGE IV PRN ×3 (10:06→10:21)
--- NOTE | 2019-03-12 10:30 | Anesthesiology Progress Note ---
Date of Service March 12, 2019 Anesthesia Post Procedure Vital Signs Vital Signs: Temp Pulse Resp BP Pulse Ox 03/12/19 10:29 36.4 C L 62 15 139/67 95 03/12/19 10:20 62 15 139/67 95 03/12/19 10:00 66 15 130/74 95 03/12/19 09:50 66 15 149/77 H 99 03/12/19 09:40 74 15 141/76 H 99 03/12/19 09:34 36 C L 85 16 133/73 99 Pain Intensity Lower Posterior Neck: Pain Intensity: 5 Anterior Neck: Pain Intensity: 3 Transfer of Care Handoff Completed per policy Notes Mental Status: alert / awake / arousable Patient Amnestic to Procedure: Yes Nausea / Vomiting: adequately controlled Pain: adequately controlled Airway Patency, RR, SpO2: stable & adequate BP & HR: stable & adequate Hydration State: stable & adequate Anesthetic Complications: no major complications apparent
[2019-03-12] MEDS ORDERED: MAGNESIUM HYDROXIDE SUSP 30 ML UDC PO PRN (11:13)
[2019-03-12] MEDS ORDERED: DEXAMETHASONE SOD PHOSPHATE 8 MG in SYRINGE 0 ML IV PRN (11:13)
[2019-03-12] MEDS ORDERED: RACEPINEPHRINE 2.25% NEBU SOLN 0.5 ML VIAL INH PRN (11:13)
[2019-03-12] MEDS ORDERED: NON-FORMULARY MEDICATION (Dulaglutide [Trulicity] 1.5 MG) SQ SCH (11:13)
[2019-03-12] MEDS ORDERED: LORazepam 0.5 MG/1 ML VIAL IV PRN (11:13)
[2019-03-12] MEDS ORDERED: NALOXONE HCL 0.4 MG/1 ML VIAL/CARP IV PRN (11:13)
[2019-03-12] MEDS ORDERED: ACETAMINOPHEN 1,000 MG/100 ML VIAL IV PRN (11:13)
[2019-03-12] MEDS ORDERED: DiphenhydrAMINE HCL 50 MG/ML VIAL IV PRN (11:13)
[2019-03-12] MEDS ORDERED: PHARMACY GLYCEMIC MGMT CONSULT PRN (11:20)
[2019-03-12] MEDS: HYDROmorphone INJ 0.5 MG/0.5 ML SYR IV PRN ×4 (11:28→23:42)
[2019-03-12] MEDS: SODIUM CHLORIDE 0.9% 1000ML 1,000 ML IV SCH ×2 (11:35→23:42)
[2019-03-12] MEDS ORDERED: GLUCAGON FOR INJ 1 MG VIAL IM PRN (11:45)
[2019-03-12] MEDS ORDERED: CARBOHYDRATES FOR HYPOGLYCEMIA PO PRN (11:45)
[2019-03-12] MEDS ORDERED: INSULIN GLARGINE SOLOSTAR 100 UNITS/ML 3 ML PEN SC ONE (11:45)
[2019-03-12] MEDS ORDERED: GLUCOSE 40% GEL 15 GM TUBE PO PRN (11:45)
[2019-03-12] MEDS ORDERED: GLUCOSE 10 TABS/TUBE PO PRN (11:45)
[2019-03-12] MEDS ORDERED: DEXTROSE 50% 50 ML SYRINGE IV PRN (11:45)
[2019-03-12] MEDS ORDERED: INSULIN ASPART 100 UNITS/ML 3 ML PEN SC SCH (12:00)
--- NOTE | 2019-03-12 15:10 | Operative Report ---
DATE OF OPERATION: 03/12/2019 PREOPERATIVE DIAGNOSES: 1. Spinal cord compression, instability, cervical spine at C4-C5. 2. Dysphagia from old cervical spinal plate. POSTOPERATIVE DIAGNOSES: 1. Spinal cord compression, instability, cervical spine at C4-C5. 2. Dysphagia from old cervical spinal plate. PROCEDURES: Included: 1. Removal of an anterior cervical plate from C5-C7 cervical spine. 2. Anterior cervical discectomy and fusion at C4-C5 cervical spine. 3. Insertion of a Globus implant called Coalition. 4. Left iliac crest structural autograft harvesting. SURGEON: Gilbert Estrella DO MANAGER [employer] SCI[employer]: Elijah Amador PA-C. LOSS: Less than 20 mL. DESCRIPTION OF PROCEDURE: The patient was seen in the holding area, appropriately identified and marked. Brought back to surgery. A successful general intubated anesthetic provided to the patient and kept supine, scrubbed, prepped and draped sterile. We made a transverse skin incision over C4-C5 area, dissecting soft tissue. I was able to do dissect further in the inferior direction and was able to get over the entire plate that was placed approximately 20 years ago. The screws were backed out. The plate was removed without incident. We then went up to the cervical spine area at C4-C5. We made an incision into the disc itself, different size curettes, pituitaries. I was able to decompress the spinal canal at C4-C5 of the cervical spine including spinal cord. Foraminotomies also provided. We then went to the left iliac crest. We harvested a piece of structural autograft, skin incision, fascial incision. I was able to put autograft inside the Globus Coalition PEEK implant, size 7. This was tapped into place. Crosstable images were excellent. We also took some of the structural autograft and bone grafted around the implant. We tightened down the construct, did the final locking. We then closed in layers on the iliac crest with #1 Vicryl, 2-0 and 3-0 nylon and the cervical spine was closed as well over a Ela drain. Cervical collar applied. The patient extubated to PACU stable. No apparent complications. Sponge and needle count correct. I attest to the content of the Intraoperative Record and any orders documented therein. Any exception s are noted below.
[2019-03-12] MEDS ORDERED: Nursing to Pharmacy Communication ONE ×2 (15:39→16:59)
[2019-03-12] MEDS ORDERED: CHECK SCOPOLAMINE PATCH PLACEMENT SCH (16:00)
--- NOTE | 2019-03-12 16:09 | Pharmacy Report ---
Pharmacy Glycemic Short Note 2 - Date of Service March 12, 2019 - Glycemic Short BSG Results (Last 24 hours): 03/12/19 03/12/19 03/12/19 06:37 09:37 12:16 POC Glucose 127 H 142 H 143 H OUTPATIENT ANTIDIABETIC REGIMEN: * Trulicity 1.5mg SQ weekly (on Mondays) * Lantus 14 units SQ BID * Metformin 1gm PO BID * HbA1c: 6.9% (01/27/19) ASSESSMENT: * Ms Moon is a 63yo diabetic female POD 0 s/p cervical discectomy/fusion with Dr Estrella this morning. * BSGs have been reasonable thus far today (127, 142, 143). * It does not appear as though patient received any steroids in the OR today. * Patient has been ordered a diabetic, clear liquid diet post-op. * Lantus started at a reduced dose until diet has advanced and is being tolerated. Novolog initiated to provide correction and prandial coverage. PLAN FOR INPATIENT GLYCEMIC CONTROL: * Hold outpatient oral diabetes medications * Consider resuming Metformin tomorrow if tolerating diet and renal function is stable * Basal insulin * Lantus 8 units SQ x1 dose post-op, then 12 units SQ BID * Will resume home dose when able * Bolus insulin * NovoLog per scale ACHS or Q6hrs while NPO * Goal Range: Low 110 mg/dL - High 140 mg/dL * Correction Factor: 40 mg/dL/unit * Nutritional / Prandial insulin per carb ratio of 1 unit per 15 grams CHO consumed PLAN FOR DISCHARGE: * Patient's recent A1c (6.9%) indicates good glycemic control as an outpatient. * Expect that patient may resume home regimen on discharge, as long as she does not report having episodes of hypoglycemia.
[2019-03-12] MEDS: CEFAZOLIN 2000MG 2,000 MG/15 ML SYR IV SCH ×2 (17:11→23:43)
[2019-03-12] MEDS: KETOROLAC 30 MG/ML VIAL IV SCH ×2 (17:15→21:08)
[2019-03-12] MEDS: INSULIN ASPART 100 UNITS/ML 3 ML PEN SC SCH ×2 (18:07→21:06)
[2019-03-12] MEDS: INSULIN GLARGINE SOLOSTAR 100 UNITS/ML 3 ML PEN SC SCH (21:07)
[2019-03-12] MEDS: DOCUSATE SODIUM 100 MG CAP PO SCH (21:08)
[2019-03-12] MEDS: ONDANSETRON INJ 2 MG/ML 2 ML VIAL IV PRN (23:58)
[2019-03-13] MEDS: KETOROLAC 30 MG/ML VIAL IV SCH ×2 (03:04→08:10)
[2019-03-13] MEDS: OXYCODONE HCL IR 5 MG TAB (IMMEDIATE RELEASE) PO PRN ×2 (06:09→12:02)
[2019-03-13] MEDS: ONDANSETRON INJ 2 MG/ML 2 ML VIAL IV PRN ×2 (06:10→12:02)
[2019-03-13] MEDS: CEFAZOLIN 2000MG 2,000 MG/15 ML SYR IV SCH (08:17)
[2019-03-13] MEDS: DOCUSATE SODIUM 100 MG CAP PO SCH (08:51)
[2019-03-13] MEDS: INSULIN GLARGINE SOLOSTAR 100 UNITS/ML 3 ML PEN SC SCH (08:52)
[2019-03-13] MEDS ORDERED: ASPIRIN 81 MG ECTAB PO SCH (09:00)
[2019-03-13] MEDS ORDERED: PROPRANOLOL HCL 20 MG TAB PO SCH (09:00)
[2019-03-13] MEDS: INSULIN ASPART 100 UNITS/ML 3 ML PEN SC SCH (09:10)
[2019-03-14] MEDS ORDERED: BISACODYL 5 MG TABEC PO PRN (09:37)
--- NOTE | 2019-03-17 10:49 | Discharge Summary ---
Sandra was taken to surgery last week for a cervical spine surgery. She did well, improved stable, went home, in approximately 24 hours. She is improved, stable. Vital signs as well. No swallowing difficulty, some shortness of breath with sporadic. She was discharged home in improved stable condition. Follow up in approximately 10 days in the office.
== END 2019-03-13 12:39 | disposition home or self-care (01) ==
LOC: ASU 06:12 → 3E 06:12

== ENCOUNTER 2020-11-18 08:03 | Observation (INO) ==
--- NOTE | 2020-11-10 14:19 | PAT Medication Instructions ---
Medication Instructions Date of Service November 10, 2020 Home Medications Medication Instructions Recorded pen needle, diabetic 32 gauge x #300 ea 12/21/19" atorvastatin 80 mg tablet 80 mg PO QPM #30 tab 11/02/20 dulaglutide 1.5 mg/0.5 mL 1.5 mg SUBCUT WK #6 ml 11/02/20 subcutaneous pen injector insulin glargine 100 unit/mL (3 14 unit SQ BID #45 ml 11/02/20 mL) subcutaneous pen metformin 1,000 mg tablet 1,000 mg PO BID #180 tab 11/02/20 propranolol 20 mg tablet 20 mg PO BID #60 tab 11/02/20 valacyclovir 1 gram tablet 1,000 mg PO UD PRN #30 tab 11/02/20 cholecalciferol (vitamin D3) 1,250 50,000 unit PO WEEKLY 42 Days #6 11/04/20 mcg (50,000 unit) capsule cap cholecalciferol (vitamin D3) 25 25 mcg PO DAILY #30 cap 11/04/20 mcg (1,000 unit) capsule aspirin [Aspir-81] 81 mg PO QAM atorvastatin 80 mg tablet 80 mg PO QPM dulaglutide 1.5 mg/0.5 mL subcutaneous pen injector 1.5 mg SUBCUT WK insulin glargine 100 unit/mL (3 mL) subcutaneous pen 14 unit SQ BID metformin 1,000 mg tablet 1,000 mg PO BID propranolol 20 mg tablet 20 mg PO BID valacyclovir 1 gram tablet 1,000 mg PO UD PRN cholecalciferol (vitamin D3) 1,250 mcg (50,000 unit) capsule 50,000 unit PO WEEKLY cholecalciferol (vitamin D3) 25 mcg (1,000 unit) capsule 25 mcg PO DAILY Continue as directed dulaglutide 1.5 mg/0.5 mL subcutaneous pen injector 1.5 mg SUBCUT WK ASK your prescriber and surgeon aspirin [Aspir-81] 81 mg PO QAM DO NOT take the morning of surgery metformin 1,000 mg tablet 1,000 mg PO BID cholecalciferol (vitamin D3) 1,250 mcg (50,000 unit) capsule 50,000 unit PO WEEKLY cholecalciferol (vitamin D3) 25 mcg (1,000 unit) capsule 25 mcg PO DAILY Take morning of surgery With a small sip of water, OTHERWISE NOTHING TO EAT OR DRINK AFTER MIDNIGHT: propranolol 20 mg tablet 20 mg PO BID valacyclovir 1 gram tablet 1,000 mg PO UD PRN(if needed) Take evening before surgery atorvastatin 80 mg tablet 80 mg PO QPM insulin glargine 100 unit/mL (3 mL) subcutaneous pen 14 unit SQ BID metformin 1,000 mg tablet 1,000 mg PO BID propranolol 20 mg tablet 20 mg PO BID valacyclovir 1 gram tablet 1,000 mg PO UD PRN (if needed) Insulin Dependent Diabetic Patients * Test your blood sugar the morning of surgery * If Blood Sugar is GREATER THAN 150, take HALF of your regular dose of: insulin glargine take 7 units * If Blood Sugar is LESS THAN 150, DO NOT TAKE ANY: insulin glargine Other Notes If you have any questions please call us at [phone] or [phone] or [phone] or [phone]
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
[2020-11-14 11:28] LABS: Partial Thromboplastin Ratio 0.9; Prothrombin Time 10.2 Seconds (9.0-12.0)
--- NOTE | 2020-11-14 11:45 | XRay Report ---
XR chest Pre-admission PA/Lat CLINICAL HISTORY: Preoperative evaluation. COMPARISON STUDY: Chest radiograph February 20, 2019. Chest radiograph March 07, 2019. FINDINGS: Lung volumes are normal. Lungs are clear. There is no pneumothorax or pleural effusion. Car diac size is normal. Mediastinal contours are normal. There is no evidence for pulmonary edema. Incid ental note is made of cholecystectomy clips and postoperative findings within the cervical spine. IMPRESSION: No acute cardiopulmonary findings. ACT 112: Negative or not required by law. Electronically signed by: John Johnson M.D. 11/14/2020 11:44 AM
--- NOTE | 2020-11-15 06:25 | Electrocardiogram Report ---
Test Reason : Blood Pressure : / mmHG Vent. Rate : 067 BPM Atrial Rate : 067 BPM P-R Int : 168 ms QRS Dur : 080 ms QT Int : 376 ms P-R-T Axes : 070 077 053 degrees QTc Int : 397 ms Normal sinus rhythm with sinus arrhythmia Normal ECG When compared with ECG of 20-FEB-2019 09:45, No significant change was found Confirmed by Alex Harris ([id number]) on 11/15/2020 6:25:14 AM Referred By: Elijah Celestin Confirmed By:Alex Harris
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
[~2020-11-18 08:03] MED LIST changes: +ACETAMINOPHEN 500 MG TAB PO SCH; +BUPIVACAINE 0.5 % 5 MG/1 ML PF 10ML VIAL ONE; -CEFAZOLIN 2000MG 2,000 MG/15 ML SYR IV SCH; +FAMOTIDINE 20 MG TAB PO SCH; +GABAPENTIN 600 MG DOSE PO SCH; +LIDOCAINE HCL 2% 2 ML VIAL/AMP(20MG/ML) INFIL ONE; -LR 15ML/HR IV SCH; +LR 500ML BOLUS, THEN 15ML/HR IV SCH; +LR 60ML/HR IV SCH; +MIDAZOLAM HCL 1 MG/ML 2ML VIAL ONE; +ONDANSETRON INJ 2 MG/ML 2 ML VIAL ONE; +PROPOFOL IV EMULSION 10 MG/ML 20 ML VIAL IV ONE; +ROPIVACAINE 0.5% HCL/PF 150 MG, BUPIVACAINE 0.75% MPF 20 ML, EPINEPHrine 30MG/30ML (OR ... INFIL SCH; -SCOPOLAMINE 1.5 MG TDSY TD SCH; -SODIUM CHLORIDE 0.9% 1,000 ML IV SCH; +TRANEXAMIC ACID 1,000 MG **IV Intra-op IV SCH; +TRANEXAMIC ACID 1,000 MG **IV Pre-op IV SCH; +ceFAZolin 1000MG 1,000 MG/7.5 ML SYR IV SCH; +dexAMETHasone 4 MG TAB PO SCH; +fentaNYL citrate 100 MCG/2 ML VIAL ONE
--- NOTE | 2020-11-18 08:06 | History & Physical Bridge Note ---
Date of Service November 18, 2020 History & Physical Bridge Note I have examined the patient, reviewed the History & Physical and in the interval since the performance of the History & Physical I have noted the following changes of clinical significance: no changes noted
[2020-11-18] MEDS ORDERED: ORTHO JOINT ANESTHETIC ONE (08:37)
[2020-11-18] MEDS ORDERED: fentaNYL citrate 100 MCG/2 ML VIAL IV PRN (09:02)
[2020-11-18] MEDS ORDERED: ONDANSETRON INJ 2 MG/ML 2 ML VIAL IV PRN ×2 (09:02→11:43)
[2020-11-18] MEDS ORDERED: ePHEDrine sulfate 50 MG/ML AMP IV PRN (09:02)
[2020-11-18] MEDS ORDERED: ATROPINE SULFATE 0.1 MG/ML 10ML SYR IV PRN (09:02)
[2020-11-18] MEDS ORDERED: PHENYLEPHRINE 100MCG/ML 5ML SYR ONE (09:45)
--- NOTE | 2020-11-18 10:32 | Operative Report ---
PG Post Operative Report Pre & Post Diagnosis Operation Date: 11/18/20 10:10 Pre-Op Diagnosis: Degenerative Joint Disease Right Knee Post-Op Diagnosis: Degenerative Joint Disease Right Knee I identified the patient and participated in the time-out.: Yes Procedure Operation Date: 11/18/20 10:10 Actual Procedures p Right Uni Compartment Knee Versus(Right) - Elijah Celestin DO Surgeon Elijah Celestin DO [employer] Production Manager Elijah Amador PAC Estimated Blood Loss 10 Findings Consistent with Post-Op Diagnosis Specimens Right femoral and tibial bone Complications none Disposition Disposition: Recovery Room Indications Josephine is a pleasant 65-year-old female whose been dealing with chronic increasing right knee pain. MRI and clinical examination were diagnostic for advanced osteoarthritis of the medial compartment of the right knee. After failing conservative treatment, she elected to proceed with a right unicompartmental knee arthroplasty. Description of Procedure Implants used: I used a [employer] [place] unicompartmental knee arthroplasty system with a size small femur, AA tibia, and a size 4 mobile polyethylene bearing. All components were cemented in place with Palacos G cement. Josephine arrived [facility] for the above procedure. She was seen in the preoperative holding area and the operative extremity was identified and signed. She was given a preoperative antibiotic, TXA, a spinal anesthetic and an adductor nerve block. She was taken back to the operating room and laid on the table in the supine position. She was given basic sedation. The operative knee was then prepped and draped in sterile fashion. A timeout was done, and the patient and the operative extremity was properly identified. A midline incision was made from the superior pole of the patella down to the tibial tubercle. Dissection was taken down to the extensor mechanism and a subvastus arthrotomy was used. The medial retinaculum was released and a small portion of the fat pad was excised. The knee was then placed in a leg beck and the intra-articular portion of the knee was exposed. The medial meniscus was removed. The ACL was intact and the lateral compartment was inspected and there were no signs of any chondral damage. Several sizing spoons were used to measure the distal femur and it measured to be a size small.The tibial saw guide was then placed externally over the shaft of the tibia. A 4 mm G clamp was used to clamp the spoon with the external tibial saw guide. 2 pins were placed. A reciprocating saw was then used to resect the tibia just medial to the apex of the medial tibial spine. An oscillating saw was then used to resect the tibial plateau. The tibial bone was then removed. The tibia measured to be a size AA. The trochlea was then exposed. A 4 mm drill was sent down the center of the femoral canal followed by a long intramedullary christen. A line was then marked in the center of the distal medial femoral condyle. A femoral drill guide was then placed and the IM link was used to connect the intramedullary christen to the femoral drill guide. A 4 mm drill was used in the upper pole of the drill guide and a 6 mm drill was used in the lower pole of the drill guide. The drill guide was then removed. A posterior resection guide was then placed in the posterior femur was resected. A 0 spigot was then impacted in the 6 mm drill hole. The distal femur was then milled and osteophytes were removed. Femoral and tibial trials were then placed. A size 4 feeler gauge was used to measure the flexion gap in 100 of flexion. A size 1 feeler gauge was used to measure the extension gap in full extension. Trials were then removed and a size 3 spigot was then impacted in the 6 mm hole. The distal femur was once again milled. The anti- impingement guide was then impacted into place and an anterior mill was used to remove anterior bone and create clearance for the front of the bearing. The tibial template was then placed and the keel cut saw was used to resect for the keeled component. Trial components were then placed along with a size 4 mobile- bearing. The knee was brought through a full range of motion and felt to be stable. All trial components were then removed. Surrounding soft tissues were then injected with 50 cc of a pain control cocktail. Drill holes were placed in the distal femur to help with cement integration. The femoral and tibial components were then cemented in place with Palacos G cement. The size 4 mobile-bearing was then snapped into place. The knee was brought through a full range of motion and felt to be stable. The joint was then irrigated with normal saline solution. The tourniquet was deflated and hemostasis was obtained. The extensor mechanism was then closed with #1 Vicryl suture. Skin was closed with 2-0 Vicryl, 3-0V lock suture, and lino. A Silverlon and a compressive dressing were placed. She was then transferred to a hospital bed and taken to the postanesthesia care unit in stable condition. She tolerated the procedure well. Elijah Amador PA-C, was present for the entire procedure. He was critical for patient positioning, prepping, draping, retraction exposure, wound closure and application of sterile dressing. I attest to the content of the Intraoperative Record and any orders documented therein. Any exceptions are noted below.
--- NOTE | 2020-11-18 11:17 | XRay Report ---
XR knee RT 1 or 2V routine CLINICAL HISTORY: Postoperative evaluation. COMPARISON: Right knee radiographs November 06, 2019. MRI of the right knee July 11, 2020. FINDINGS: There are postoperative findings consistent with medial compartment arthroplasty of the ri ght knee. Skin lino are present. There is no fracture. No unexpected radiopaque foreign bodies are present. IMPRESSION: Expected findings following medial compartment arthroplasty of the right knee. ACT 112: Negative or not required by law. Electronically signed by: John Johnson M.D. 11/18/2020 11:15 AM
[2020-11-18] MEDS ORDERED: NON-FORMULARY MEDICATION (Dulaglutide [Trulicity] 1.5 mg/0.5 mL pen injector) SQ SCH (11:43)
[2020-11-18] MEDS ORDERED: HYDROmorphone INJ 0.5 MG/0.5 ML SYR IV PRN (11:43)
[2020-11-18] MEDS ORDERED: NALOXONE HCL 0.4 MG/1 ML VIAL/CARP IV PRN (11:43)
[2020-11-18] MEDS ORDERED: MAGNESIUM HYDROXIDE SUSP 30 ML UDC PO PRN (11:43)
[2020-11-18] MEDS ORDERED: METOCLOPRAMIDE HCL INJ 5 MG/ML 2 ML VIAL IV PRN (11:43)
[2020-11-18] MEDS ORDERED: valACYclovir HCL 500 MG TABLET PO PRN (11:43)
[2020-11-18] MEDS ORDERED: bisacodyL 10 MG SUPP PR PRN (11:43)
--- NOTE | 2020-11-18 11:52 | Anesthesiology Progress Note ---
Date of Service November 18, 2020 Anesthesia Post Procedure Vital Signs Vital Signs: Temp Pulse Pulse Resp BP BP Pulse Ox 11/18/20 11:30 97.3 F L 69 16 102/64 93 11/18/20 11:25 97.5 F L 68 16 101/60 97 11/18/20 11:15 68 16 97/54 L 97 11/18/20 11:05 83 16 103/62 98 11/18/20 10:55 97.2 F L 67 16 95/64 L 98 11/18/20 08:47 98.2 F 84 18 115/73 96 Pain Intensity Right Knee: Pain Intensity: 7 Transfer of Care Handoff Completed per policy Notes Mental Status: alert / awake / arousable and participated in evaluation Patient Amnestic to Procedure: Yes Nausea / Vomiting: adequately controlled Pain: adequately controlled Airway Patency, RR, SpO2: stable & adequate BP & HR: stable & adequate Hydration State: stable & adequate Neuraxial Anesthesia: was administered and sensory block is resolving Anesthetic Complications: no major complications apparent and Pt Satisfied with anesthetic care
[2020-11-18] MEDS ORDERED: PHARMACY GLYCEMIC MGMT CONSULT PRN (12:05)
[2020-11-18] MEDS: SODIUM CHLORIDE 0.9% 1000ML 1,000 ML IV SCH ×2 (12:28→21:37)
[2020-11-18] MEDS: KETOROLAC TROMETHAMINE 15 MG/ML VIAL IV SCH ×3 (12:28→23:57)
[2020-11-18] MEDS ORDERED: NovoLIN-N (NPH) PER UNIT CHARGE SQ ONE (12:30)
--- NOTE | 2020-11-18 12:30 | Pharmacy Report ---
Pharmacy Glycemic Short Note 2 - Date of Service November 18, 2020 - Glycemic Short BSG Results (Last 24 hours): 11/18/20 11/18/20 11/18/20 08:30 10:58 12:05 POC Glucose 98 102 H 118 H OUTPATIENT ANTIDIABETIC REGIMEN: * Trulicity * Metformin * Lantus 14 units SC BID * HbA1c 6.1% on 11/02/20 ASSESSMENT: * 65 yo F admitted 11/18 s/p R unicompartmental knee arthroplasty. Dexamethasone po administered perioperatively. T2DM diet ordered post-op * BSG's good pre- and post-op thus far, ranging 98-118 mg/dL * Will continue BID Lantus as inpatient to mimic home schedule, but will add scale based on BSG * Will give additional NPH immediately x1 to bring total basal dose up to at least 0.4 units/kg today * Will initiate Novolog at weight-based moderate to severe stress estimate and add two overnight checks PLAN FOR INPATIENT GLYCEMIC CONTROL: * Hold outpatient oral diabetes medications * Basal insulin * Lantus 5-15 units SQ BID, 5 units for BSG less than 140 mg/dL, 10 units for BSG 140-180 mg/dL, 15 units for BSG greater than 180 mg/dL * NPH 10 units SC x1 now * Bolus insulin * NovoLog per scale ACHS or Q6hrs while NPO * Goal Range: Low 110 mg/dL - High 140 mg/dL * Correction Factor: 35 mg/dL/unit * Nutritional / Prandial insulin per carb ratio of 1 unit per 11 grams CHO consumed PLAN FOR DISCHARGE: * Continue above outpatient regimen, assuming patient does not report frequent hypoglycemia as an outpatient and no contraindications exist at discharge
[2020-11-18] MEDS ORDERED: CARBOHYDRATES FOR HYPOGLYCEMIA PO PRN (12:45)
[2020-11-18] MEDS ORDERED: GLUCOSE 10 TABS/TUBE PO PRN (12:45)
[2020-11-18] MEDS ORDERED: DEXTROSE 50% 50 ML SYRINGE IV PRN (12:45)
[2020-11-18] MEDS ORDERED: GLUCOSE 40% GEL 15 GM TUBE PO PRN (12:45)
[2020-11-18] MEDS ORDERED: GLUCAGON FOR INJ 1 MG VIAL IM PRN (12:45)
[2020-11-18] MEDS: INSULIN ASPART 100 UNITS/ML 3 ML PEN SC SCH ×4 (13:33→23:59)
[2020-11-18] MEDS: oxyCODONE HCL IR 5 MG TAB (IMMEDIATE RELEASE) PO PRN ×2 (17:15→21:23)
[2020-11-18] MEDS: ceFAZolin 2000MG 2,000 MG/15 ML SYR IV SCH (18:07)
[2020-11-18] MEDS ORDERED: SENNA 8.6 MG TAB PO SCH (21:00)
[2020-11-18] MEDS ORDERED: INSULIN GLARGINE SOLOSTAR 100 UNITS/ML 3 ML PEN SC SCH (21:00)
[2020-11-18] MEDS ORDERED: ATORVASTATIN 40 MG TAB PO SCH (21:00)
[2020-11-18] MEDS: DOCUSATE SODIUM 100 MG CAP PO SCH (21:22)
[2020-11-18] MEDS: ASPIRIN 81 MG ECTAB PO SCH (21:22)
[2020-11-18] MEDS: PROPRANOLOL HCL 20 MG TAB PO SCH (21:23)
[2020-11-19] MEDS: ceFAZolin 2000MG 2,000 MG/15 ML SYR IV SCH (01:54)
[2020-11-19] MEDS: INSULIN ASPART 100 UNITS/ML 3 ML PEN SC SCH ×2 (04:06→09:33)
[2020-11-19] MEDS: KETOROLAC TROMETHAMINE 15 MG/ML VIAL IV SCH (05:48)
[2020-11-19 06:16] LABS: Hematocrit (blood only) 35.4 % (37-47); Hemoglobin 11.7 g/dL (12.0-16.0); Mean Corpuscular Hgb Conc 33.1 g/dL (32-36); Mean Corpuscular Volume 96.7 fL (80-100); Mean Platelet Volume 9.6 fL (7.4-10.4); Platelet Count 300 K/uL (130-400); RDW Coefficient of Variation 13.5 % (11.5-14.5); RDW Standard Deviation 47.4 fL (36.4-46.3); Red Blood Count 3.66 M/uL (4.2-5.4); White Blood Count 19.54 K/uL (4.8-10.8)
[2020-11-19 06:48] LABS: BUN Creatinine Ratio 26.5 (10-20); Calcium 8.4 mg/dl (8.5-10.1); Creatinine Clr Calc Pharmacy 58.4 ml/min; Est GFR (African American) 95.4; Est GFR (Non-African American) 82.3; Potassium 4.1 mmol/L (3.5-5.1)
--- NOTE | 2020-11-19 08:13 | Orthopedic Progress Note ---
Date of Service November 19, 2020 Assessment & Plan (1) Status post right partial knee replacement: Overall she is doing very well. She not having much pain in the right knee. She will be seen by physical therapy today for ambulation and range of motion exercises. She is on aspirin for DVT prophylaxis. She can be discharged home later today. She will follow-up with orthopedics in 2 weeks. Kyle Flores was seen and examined at bedside this morning. Overall she is doing very well. She denies any pain in the right knee. She has been up and ambulating. She has no complaints.. Review of Systems All systems reviewed & are unremarkable except as noted in HPI & below. Physical Exam On physical examination of the right knee, the dressing is clean and dry. Her leg is out full extension. She has active dorsiflexion and plantarflexion of her right ankle.. Results & Data Results & Data Laboratory Results H & H 11/19/20 Range/Units 05:26 Hgb 11.7 L (12.0-16.0) g/dL Hct 35.4 L (37-47) % Coagulation 11/14/20 Range/Units 10:45 INR 1.0 (0.9-1.1) . Diagnostic Findings Postoperative x-rays of the right knee show the prosthesis to be in anatomic alignment without any evidence of fracture, dislocation, or loosening. PG Care Time/CCT Total # of Minutes Spent Total Time Spent with Patient: Total time spent is greater than 50% in coordination of care (as documented) at patient's floor/unit and/or counseling patient: Coding Level of Care Code 23870 Post Operative Follow-Up Diagnoses Status post right partial knee replacement Z96.651
--- NOTE | 2020-11-19 08:14 | Discharge Summary ---
Date of Service November 19, 2020 Admission HPI (Per Admitting) Josephine is a pleasant 65-year-old female who is been having a year-long history of right knee pain. She initially felt she banged the knee on the table when it started. I have been giving her serial injections of her knee. The injections have not been helping. I sent her for an MRI of her knee. The MRI showed some signs of possible osteonecrosis. There was some fluid within the bone. There is also complex tearing and extrusion of the medial meniscus. After failing conservative treatment, she elected proceed with a right unicompartmental knee arthroplasty.. Admission Exam (Per Admitting) On physical examination of the right knee, she has a moderate effusion. She has severe pain over the medial joint line and over the distal medial femoral condyle.. Principal Diagnosis Same as "Discharge Diagnosis" noted below under Discharge Instructions. Discharge Exam On physical examination of the right knee, the dressing is clean and dry. Her leg is out full extension. She has active dorsiflexion and plantarflexion of her right ankle.. Discharge Data Consultations 11/18/20 11:43 Consult Case Management - Discharge Planning Routine Procedures Performed Operation Date: 11/18/20 10:10 Actual Procedures p Right Uni Compartment Knee (Right) - Elijah Celestin DO Ordered Studies 11/18/20 05:00 US - OR guided needle placemen Routine Hospital Course (1) Status post right partial knee replacement: On November 18, 2020 Josephine arrived at [facility] and underwent a right partial knee replacement without complication. She had a spinal anesthetic. Postoperatively she was started on aspirin for DVT prophylaxis and transferred to the general orthopedic floors. Her hospital course was uneventful. On postop day #1 her H&H was stable and her pain was well controlled. She was able to participate well with physical therapy doing ambulation and range of motion exercises. She was then discharged home. She will follow-up with orthopedics in 2 weeks. PG Care Time/CCT Total # of Minutes Spent Total Time Spent with Patient: Total time spent is greater than 50% in coordination of care (as documented) at patient's floor/unit and/or counseling patient: Discharge Plan Discharge Items Patient Disposition: Home - Home Health Services Reason For Visit: Degenerative Joint Disease Right Knee Discharge Diagnosis: Right partial knee replacement Activity: As commented below Non-emergency contact: Surgeon Call non-emergency contact if: your wound has increased redness and your wound has increased drainage Follow-up/Referrals: Jessica Portillo, [Primary Care Provider] - Diet: Regular Addtl Attending Provider Instructions: Activity and Therapy Recommendations: * If you are using [facility] then therapy will be provided at your home until they feel you have accomplished all of your goals. * If you are using [facility] then Physical Therapy will be provided until they feel you are ready to start Outpatient Physical Therapy. * If you are not using home therapy then Outpatient Physical Therapy should start about 3-5 days from your day of surgery. Therapy will last about 6-10 weeks * It is important not to put a pillow under your knee when you are relaxing or sleeping. It is just as important to make sure you are getting your knee perfectly straight as it is to regain your knee bend. * You were shown a series of exercises in the hospital. Do these exercises three times each day including the exercises you were shown in physical therapy. * Get up and walk several times each day. For the first four weeks, try not to stand or walk for more than one hour at a time. If you do stand or walk for more than one hour, you will not hurt anything, but your leg will likely swell. * As you feel comfortable, you may change from the walker or crutches to a cane and then to independent walking. Medications: * Narcotic You will likely be sent home from the hospital with a prescription for the narcotic pain medication that worked best throughout your stay. * Aspirin Most patients will be required to take Aspirin 81mg twice a day for 6 weeks after surgery. This is obtained [id number] and a prescription is not necessary. * Other medications may be prescribed for specific circumstances. If you have any questions, please call the office at . * Resume previous home medications unless otherwise instructed TEDs/Elastic Stockings: The white elastic stockings help limit swelling and prevent blood clots from forming in your legs.~ The more you wear them, the more they work. Wear them for six weeks. Dressing Care: Leave the Silverlon dressing in place for 7 days. After 7 days you may remove the dressing. If the incision is not draining then you may leave the lino open to air. If there is a little bit of drainage or if the lino are getting stuck on your clothing then cover the incision with a dry dressing. The lino will be removed at your 2 week follow-up appointment. Showering: You may shower with the Silverlon dressing in place. Do not let the shower spray hit the dressing directly. Pat the Silverlon dressing dry. If the dressing becomes wet underneath, then simply remove the dressing. Keep the incision dry until you are 7 days out from the day of surgery. After 7 days you may remove the Silverlon dressing and shower with the lino exposed. Let soapy water run over the lino and pat them dry. Do not scrub or soak the incision. Things To Watch For: * Drainage from the incision site that occurs more than one week after your surgery. * Increased redness at the incision site. * Fever above 102 degrees Fahrenheit. * Unusual chest pain or shortness of breath. * Call [facility] at with any of the above problems Follow-Up Visit: Follow-up with Dr. Celestin's PA (Elijah Amador) 2-3 weeks after your day of surgery. He will remove your lino and answer any questions. If you have any additional questions or concerns, Dr Celestin is usually in the office at the same time and will be available An appointment was probably scheduled when you signed-up for surgery in the office. If you have any questions call Office Instructions: More detailed instructions as well as Frequently Asked Questions were provided in a folder by our office when you signed-up for surgery. Please review these instructions when you get home. If you have any further questions or concerns, please feel free to call the office at [phone] Pending Studies at Discharge: No Stand-Alone Forms: [facility], Smoking Cessation Medications and DC Order Prescriptions: New tramadol 50 mg tablet 50 mg PO Q6H PRN (Reason: pain) Qty: 30 RF: 0 aspirin 81 mg Tablet,Delayed Release (Dr/Ec) 81 mg PO BID 42 Days Qty: 0 RF: 0 Continued (DME) pen needle, diabetic [BD Ultra-Fine Yasmin Pen Needle] 32 gauge x 5/32" needle See Dose Instructions .ROUTE .MEDSUPPLY Qty: 300 RF: 5 cholecalciferol (vitamin D3) 1,250 mcg (50,000 unit) capsule 50,000 unit PO WEEKLY 42 Days Qty: 6 RF: 0 cholecalciferol (vitamin D3) 25 mcg (1,000 unit) capsule 25 mcg PO DAILY Qty: 30 RF: 0 atorvastatin 80 mg tablet 80 mg PO QPM Qty: 30 RF: 5 Trulicity 1.5 mg/0.5 mL pen injector 1.5 mg SUBCUT WK Qty: 6 RF: 5 Lantus Solostar U-100 Insulin 100 unit/mL (3 mL) insulin pen 14 unit SQ BID Qty: 45 RF: 1 metformin 1,000 mg tablet 1,000 mg PO BID Qty: 180 RF: 1 valacyclovir [Valtrex] 1 gram tablet 1,000 mg PO UD PRN (Reason: Cold Sores) Qty: 30 RF: 3 propranolol 20 mg tablet 20 mg PO BID Qty: 60 RF: 4 Discontinued aspirin [Aspir-81] 81 mg Tablet,Delayed Release (Dr/Ec) 81 mg PO QAM RF: 0 Discharge Orders: Discharge Order (Routine); Ordered 11/19/20 Ordered By: Elijah Celestin Admission Data Admit Date/Time: 11/18/20 11:41 Attending Provider: Elijah Celestin Admit Provider: Elijah Celestin Primary Care Provider: Jessica Portillo
[2020-11-19] MEDS ORDERED: MULTIVITAMIN TAB PO SCH (09:00)
[2020-11-19] MEDS ORDERED: INSULIN GLARGINE SOLOSTAR 100 UNITS/ML 3 ML PEN SC SCH (09:00)
[2020-11-19] MEDS: DOCUSATE SODIUM 100 MG CAP PO SCH (09:31)
[2020-11-19] MEDS: oxyCODONE HCL IR 5 MG TAB (IMMEDIATE RELEASE) PO PRN (09:31)
[2020-11-19] MEDS: PROPRANOLOL HCL 20 MG TAB PO SCH (09:32)
[2020-11-19] MEDS: ASPIRIN 81 MG ECTAB PO SCH (09:32)
== END 2020-11-19 11:33 | disposition home health service (06) ==
LOC: PACUINP 08:03 → ASU 08:03 → 3E 08:03

== ENCOUNTER 2021-02-02 12:52 | Observation (INO) ==
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
[~2021-02-02 12:52] MED LIST changes: +BUPIVACAINE 0.25% 30 ML VIAL ONE; +EPINEPHrine INJ 1 MG/ML AMP ONE; -GABAPENTIN 600 MG DOSE PO SCH; -LIDOCAINE HCL 2% 2 ML VIAL/AMP(20MG/ML) INFIL ONE; -MIDAZOLAM HCL 1 MG/ML 2ML VIAL ONE; -ONDANSETRON INJ 2 MG/ML 2 ML VIAL ONE; -PROPOFOL IV EMULSION 10 MG/ML 20 ML VIAL IV ONE; -ROPIVACAINE 0.5% HCL/PF 150 MG, BUPIVACAINE 0.75% MPF 20 ML, EPINEPHrine 30MG/30ML (OR ... INFIL SCH; -fentaNYL citrate 100 MCG/2 ML VIAL ONE
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
[2021-02-02] MEDS ORDERED: ONDANSETRON INJ 2 MG/ML 2 ML VIAL ONE ×2 (15:15→16:00)
[2021-02-02] MEDS ORDERED: PROPOFOL IV EMULSION 10 MG/ML 20 ML VIAL IV ONE (15:15)
[2021-02-02] MEDS ORDERED: DEXAMETHASONE SOD INJ 4 MG/ML VIAL ONE (15:15)
[2021-02-02] MEDS ORDERED: MIDAZOLAM HCL 1 MG/ML 2ML VIAL ONE ×2 (15:15→15:16)
[2021-02-02] MEDS ORDERED: fentaNYL citrate 100 MCG/2 ML VIAL ONE ×2 (15:15→16:07)
[2021-02-02] MEDS ORDERED: LIDOCAINE HCL 2% 2 ML VIAL/AMP(20MG/ML) INFIL ONE (15:15)
[2021-02-02] MEDS ORDERED: BUPIVACAINE 0.25% 30 ML VIAL ONE (15:49)
[2021-02-02] MEDS ORDERED: EPINEPHrine INJ 1 MG/ML AMP ONE (15:49)
[2021-02-02] MEDS ORDERED: PHENYLEPHRINE 100MCG/ML 5ML SYR ONE (16:00)
[2021-02-02] MEDS ORDERED: ATROPINE SULFATE 0.1 MG/ML 10ML SYR IV PRN (16:06)
[2021-02-02] MEDS ORDERED: PROMETHAZINE HCL 6.25 MG in SODIUM CHLORIDE 0.9% 50 ML IV PRN (16:06)
[2021-02-02] MEDS ORDERED: ONDANSETRON INJ 2 MG/ML 2 ML VIAL IV PRN ×2 (16:06→17:29)
[2021-02-02] MEDS ORDERED: ePHEDrine sulfate 50 MG/ML AMP IV PRN (16:06)
--- NOTE | 2021-02-02 16:31 | Operative Report ---
PG Post Operative Report Pre & Post Diagnosis Operation Date: 02/02/21 07:00 Pre-Op Diagnosis: Wound drainage right knee Post-Op Diagnosis: Wound drainage right knee I identified the patient and participated in the time-out.: Yes Procedure Operation Date: 02/02/21 07:00 Actual Procedures p Right Total Knee Arthroplasty, Irrigation and Debridement, Polyethylene Exchange(Right) - Elijah Celestin, Surgeon Elijah Celestin, Plow Holder Elijah Amador PAC Estimated Blood Loss 5 Findings Consistent with Post-Op Diagnosis Specimens Cultures Complications none Disposition Disposition: Recovery Room Indications Josephine is a pleasant 65-year-old female who underwent a right unicompartmental knee arthroplasty in October. She has had on and off drainage from the knee since then. Is never looked infected. More recently has been draining straw- colored fluid. It appeared to be joint fluid. The fact that she was still having drainage from her knee over 2 months out was concerning so we elected to proceed with an open irrigation debridement of the right knee with appropriate cultures. Description of Procedure On February 02, 2021 Josephine arrived at [facility] for the above procedure. She was seen in the preoperative holding area and the operative extremity was identified and signed. She was given a preoperative antibiotic. She was taken back to the operating room and laid on the table in supine position. She was put under general anesthesia. The right knee was prepped and draped in sterile fashion. A timeout was done. The patient and the operative extremity was properly identified. The knee was flexed to about 130 degrees. There was some straw-colored fluid that came out of the very small pinhole in the inferior aspect of the incision. It appeared to be joint fluid. The bottom half of the incision was opened up. Dissection was taken down to the extensor mechanism. There was a very small fistula that was tracked towards the joint. This fistula was cultured. When that was opened up a little bit the knee was flexed more and more joint fluid was able to follow the fistula. At no point did any of this look infected. The medial retinaculum was then slightly released and the knee was flexed. The knee joint was inspected thoroughly and there was no evidence of infection. The polyethylene liner was then removed. Further inspection showed no signs of infection. I did wash the components with a Betadine scrub brush. I then irrigated the knee with 3 L of normal saline solution through pulse lavage. I replaced a 4 mm [place] polyethylene insert. The extensor mechanism was then closed with #1 Vicryl suture. Care was taken to an sure that the fistula that communicated with the knee joint was fully removed. The skin was then closed with 2-0 Vicryl and lino. She was placed in a soft dressing. She was then extubated and transferred to a [facility]. She was taken to the postanesthesia care unit in stable condition. She tolerated the procedure well. Elijah Amador PA-C, was present for the entire procedure. He was critical for patient positioning, prepping, draping, retraction exposure, wound closure and application of sterile dressing. I attest to the content of the Intraoperative Record and any orders documented therein. Any exceptions are noted below.
[2021-02-02] MEDS: fentaNYL citrate 100 MCG/2 ML VIAL IV PRN ×2 (16:53→16:58)
--- NOTE | 2021-02-02 17:11 | Anesthesiology Progress Note ---
Date of Service February 02, 2021 Anesthesia Post Procedure Vital Signs Vital Signs: Temp Pulse Pulse Resp BP BP Pulse Ox 02/02/21 17:10 36.4 C L 71 14 129/72 97 02/02/21 17:00 81 19 124/79 98 02/02/21 16:50 82 17 137/77 98 02/02/21 16:42 36.6 C 71 19 124/83 100 02/02/21 13:15 36.9 C 86 16 133/78 99 Pain Intensity Right Knee: Pain Intensity: 3 Transfer of Care Handoff Completed per policy Notes Mental Status: alert / awake / arousable Patient Amnestic to Procedure: Yes Nausea / Vomiting: adequately controlled Pain: adequately controlled Airway Patency, RR, SpO2: stable & adequate BP & HR: stable & adequate Hydration State: stable & adequate Anesthetic Complications: no major complications apparent
[2021-02-02] MEDS ORDERED: MAGNESIUM HYDROXIDE SUSP 30 ML UDC PO PRN (17:29)
[2021-02-02] MEDS ORDERED: NALOXONE HCL 0.4 MG/1 ML VIAL/CARP IV PRN (17:29)
[2021-02-02] MEDS ORDERED: valACYclovir HCL 500 MG TABLET PO PRN (17:29)
[2021-02-02] MEDS ORDERED: oxyCODONE HCL IR 5 MG TAB (IMMEDIATE RELEASE) PO PRN (17:29)
[2021-02-02] MEDS ORDERED: SODIUM CHLORIDE 0.9% 1000ML 1,000 ML IV SCH (17:29)
[2021-02-02] MEDS ORDERED: METOCLOPRAMIDE HCL INJ 5 MG/ML 2 ML VIAL IV PRN (17:29)
[2021-02-02] MEDS ORDERED: bisacodyL 10 MG SUPP PR PRN (17:29)
[2021-02-02] MEDS ORDERED: HYDROmorphone INJ 0.5 MG/0.5 ML SYR IV PRN (17:29)
[2021-02-02] MEDS ORDERED: PHARMACY GLYCEMIC MGMT CONSULT PRN (18:07)
[2021-02-02] MEDS: KETOROLAC 30 MG/ML VIAL IV SCH (19:11)
[2021-02-02] MEDS: INSULIN ASPART 100 UNITS/ML 3 ML PEN SC SCH ×2 (19:12→20:51)
[2021-02-02] MEDS ORDERED: CARBOHYDRATES FOR HYPOGLYCEMIA PO PRN (19:30)
[2021-02-02] MEDS ORDERED: GLUCOSE 40% GEL 15 GM TUBE PO PRN (19:30)
[2021-02-02] MEDS ORDERED: GLUCOSE 10 TABS/TUBE PO PRN (19:30)
[2021-02-02] MEDS ORDERED: DEXTROSE 50% 50 ML SYRINGE IV PRN (19:30)
[2021-02-02] MEDS ORDERED: GLUCAGON FOR INJ 1 MG VIAL IM PRN (19:30)
[2021-02-02] MEDS: DOCUSATE SODIUM 100 MG CAP PO SCH (20:48)
[2021-02-02] MEDS: ASPIRIN 81 MG ECTAB PO SCH (20:49)
[2021-02-02] MEDS: PROPRANOLOL HCL 20 MG TAB PO SCH (20:49)
[2021-02-02] MEDS: ACETAMINOPHEN 500 MG TAB PO SCH (20:50)
[2021-02-02] MEDS ORDERED: SENNA 8.6 MG TAB PO SCH (21:00)
[2021-02-02] MEDS ORDERED: INSULIN GLARGINE SOLOSTAR 100 UNITS/ML 3 ML PEN SC SCH (21:00)
[2021-02-02] MEDS ORDERED: ATORVASTATIN 40 MG TAB PO SCH (21:00)
[2021-02-03] MEDS: INSULIN ASPART 100 UNITS/ML 3 ML PEN SC SCH ×3 (00:16→08:16)
[2021-02-03] MEDS: ACETAMINOPHEN 500 MG TAB PO SCH (04:50)
[2021-02-03] MEDS: KETOROLAC 30 MG/ML VIAL IV SCH ×3 (04:50→10:41)
[2021-02-03] MEDS: ASPIRIN 81 MG ECTAB PO SCH (08:17)
[2021-02-03] MEDS: DOCUSATE SODIUM 100 MG CAP PO SCH (08:18)
[2021-02-03] MEDS: PROPRANOLOL HCL 20 MG TAB PO SCH (08:18)
[2021-02-03] MEDS: ceFAZolin 2000MG 2,000 MG/15 ML SYR IV SCH ×2 (08:23)
--- NOTE | 2021-02-03 08:28 | Orthopedic Progress Note ---
Date of Service February 03, 2021 Assessment & Plan (1) Drainage from surgical wound: Overall she is doing very well. The cultures are not back yet, but she really did not show any signs of infections interoperatively. I feel safe discharging her home. We will discharge her to home on oral Keflex for 7 days. She already has 2 days worth at home and I will give her an additional 5 days. She does not need a pain medications. The nursing staff can change her dressing before discharge. I will see her in the office in 2 weeks for staple removal. Kyle Flores was seen and examined this morning. Overall she doing very well. She is not having any pain in the right knee. She was able to get some sleep last night. She has no complaints. . Review of Systems All systems reviewed & are unremarkable except as noted in HPI & below. Physical Exam On physical examination of the left knee, the dressing is clean and dry. She can easily move her knee from 0 to 90 degrees. She is not having much pain. She is neurovascularly intact. . Results & Data Results & Data Laboratory Results . Diagnostic Findings . PG Care Time/CCT Total # of Minutes Spent Total Time Spent with Patient: Total time spent is greater than 50% in coordination of care (as documented) at patient's floor/unit and/or counseling patient: Coding Level of Care Code 01576 Post Operative Follow-Up Diagnoses Drainage from surgical wound
--- NOTE | 2021-02-03 08:29 | Discharge Summary ---
Date of Service February 03, 2021 Admission HPI (Per Admitting) Sandra is a pleasant 65-year-old female who underwent a right partial knee replacement on November 18, 2020. She struggled some postoperatively. She initially had a very bad reaction to the Silverlon dressing. She had a lot of swelling and blistering around her leg. She then went on to have several small suture abscesses. She was placed on Keflex and then placed on Bactrim and doxycycline. Things would dry up and then a new suture abscess would show. She then had a period where her knee was doing much better. She really does not have any pain in her knee. She is fully functional and the swelling is completely down. She has excellent range of motion. Starting last , she then began having clear drainage coming out of the inferior aspect of her wound. She was seen in our office and started back on Keflex. Unfortunately, it is still draining. After discussion to the office, she elected to proceed with a irrigation debridement with possible polyexchange of the right knee.. Admission Exam (Per Admitting) On physical examination of the right knee, there is no effusion. There is no signs of infection. There is no erythema. She ambulates independently without any pain. She is excellent motion from 0 to 130 degrees. When I flex her she has this persistent clear/yellow watery discharge from her incision. There is no odor. Principal Diagnosis Same as "Discharge Diagnosis" noted below under Discharge Instructions. Discharge Exam On physical examination of the left knee, the dressing is clean and dry. She can easily move her knee from 0 to 90 degrees. She is not having much pain. She is neurovascularly intact. . Discharge Data Procedures Performed Operation Date: 02/02/21 07:00 Actual Procedures s Right Total Knee Arthroplasty, Irrigation and Debridement,(Right) - Elijah Celestin DO p Polyethylene Exchange(Right) - Elijah Celestin DO Ordered Studies 02/02/21 05:00 US - OR guided needle placemen Routine Hospital Course (1) Drainage from surgical wound: On February 02, 2021 Josephine arrived at [facility] and underwent an I&D of the right knee without complication. There was no signs of infection. She was simply leaking joint fluid through a fistula. Postoperatively I placed her on some IV antibiotics and kept overnight for postoperative medical management. Her hospital course was uneventful. On postop day #1 her vital signs were stable and her pain was well controlled. The culture still were not back yet. I felt it was safe to discharge her to home on oral Keflex for 7 days. We will await final cultures. She will follow-up in my office in 2 weeks. PG Care Time/CCT Total # of Minutes Spent Total Time Spent with Patient: Total time spent is greater than 50% in coordination of care (as documented) at patient's floor/unit and/or counseling patient: Discharge Plan Discharge Items Patient Disposition: Home - Home Health Services Reason For Visit: Painful Right Total Knee Arthroplasty with Drainag Discharge Diagnosis: Irrigation debridement of the right knee Activity: As commented below Non-emergency contact: Surgeon Call non-emergency contact if: your wound has increased redness and your wound has increased drainage Follow-up/Referrals: Jessica Portillo DO [Primary Care Provider] - Diet: Regular Addtl Attending Provider Instructions: Activity and Therapy Recommendations: * If you are using [facility] then therapy will be provided at your home until they feel you have accomplished all of your goals. * If you are using [facility] then Physical Therapy will be provided until they feel you are ready to start Outpatient Physical Therapy. * If you are not using home therapy then Outpatient Physical Therapy should start about 3-5 days from your day of surgery. Therapy will last about 6-10 weeks * It is important not to put a pillow under your knee when you are relaxing or sleeping. It is just as important to make sure you are getting your knee perfectly straight as it is to regain your knee bend. * You were shown a series of exercises in the hospital. Do these exercises three times each day including the exercises you were shown in physical therapy. * Get up and walk several times each day. For the first four weeks, try not to stand or walk for more than one hour at a time. If you do stand or walk for more than one hour, you will not hurt anything, but your leg will likely swell. * As you feel comfortable, you may change from the walker or crutches to a cane and then to independent walking. Medications: * Narcotic You will likely be sent home from the hospital with a prescription for the narcotic pain medication that worked best throughout your stay. * Aspirin Most patients will be required to take Aspirin 81mg twice a day for 6 weeks after surgery. This is obtained [id number] and a prescription is not necessary. * Other medications may be prescribed for specific circumstances. If you have any questions, please call the office at . * Resume previous home medications unless otherwise instructed TEDs/Elastic Stockings: The white elastic stockings help limit swelling and prevent blood clots from forming in your legs.~ The more you wear them, the more they work. Wear them for six weeks. Dressing Care: You may remove the dressing after physical therapy on postop day #1. If the incision is not draining then you may leave the lino open to air. If there is a little bit of drainage or if the lino are getting stuck on your clothing then cover the incision with a dry dressing. The lino will be removed at your 2 week follow-up appointment. Showering: You may shower 5 days from the day of surgery. You may shower with the lino exposed. Let soapy water run over the lino and pat them dry. Do not scrub or soak the incision. Things To Watch For: * Drainage from the incision site that occurs more than one week after your surgery. * Increased redness at the incision site. * Fever above 102 degrees Fahrenheit. * Unusual chest pain or shortness of breath. * Call [facility] at with any of the above problems Follow-Up Visit: Follow-up with Dr. Celestin's PA (Elijah Amador) 2-3 weeks after your day of surgery. He will remove your lino and answer any questions. If you have any additional questions or concerns, Dr Celestin is usually in the office at the same time and will be available An appointment was probably scheduled when you signed-up for surgery in the office. If you have any questions call Office Instructions: More detailed instructions as well as Frequently Asked Questions were provided in a folder by our office when you signed-up for surgery. Please review these instructions when you get home. If you have any further questions or concerns, please feel free to call the office at [phone] Pending Studies at Discharge: No Stand-Alone Forms: [facility] Medications and DC Order Prescriptions: Continued (DME) pen needle, diabetic [BD Ultra-Fine Yasmin Pen Needle] 32 gauge x 5/32" needle See Dose Instructions .ROUTE .MEDSUPPLY Qty: 300 RF: 5 tramadol 50 mg tablet 50 mg PO Q8H PRN (Reason: pain) Qty: 20 RF: 0 atorvastatin 80 mg tablet 80 mg PO QPM Qty: 30 RF: 5 Trulicity 1.5 mg/0.5 mL pen injector 1.5 mg SUBCUT WK Qty: 6 RF: 5 Lantus Solostar U-100 Insulin 100 unit/mL (3 mL) insulin pen 14 unit SQ BID Qty: 45 RF: 1 metformin 1,000 mg tablet 1,000 mg PO BID Qty: 180 RF: 1 valacyclovir [Valtrex] 1 gram tablet 1,000 mg PO UD PRN (Reason: Cold Sores) Qty: 30 RF: 3 propranolol 20 mg tablet 20 mg PO BID Qty: 60 RF: 4 cephalexin 500 mg capsule 500 mg PO TID 5 Days Qty: 15 RF: 0 Discharge Orders: Discharge Order (Routine); Ordered 02/03/21 Ordered By: Elijah Celestin Admission Data Admit Date/Time: 02/02/21 16:39 Attending Provider: Elijah Celestin Admit Provider: Elijah Celestin Primary Care Provider: Jessica Portillo
[2021-02-03] MEDS ORDERED: MULTIVITAMIN TAB PO SCH (09:00)
[2021-02-03] MEDS ORDERED: INSULIN GLARGINE SOLOSTAR 100 UNITS/ML 3 ML PEN SC SCH (09:00)
[2021-02-03] MEDS ORDERED: traMADol HCL 50 MG TABLET PO SCH (13:30)
== END 2021-02-03 13:21 | disposition home health service (06) ==
LOC: ASU 12:52 → 3E 12:52

== ENCOUNTER 2021-02-13 10:45 | Inpatient (IN) ==
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
[2021-02-13] MEDS ORDERED: ONDANSETRON INJ 2 MG/ML 2 ML VIAL IV STA (11:11)
[2021-02-13] MEDS ORDERED: SODIUM CHLORIDE 0.9% 1000ML 1,000 ML IV STA (11:11)
[2021-02-13] MEDS: HYDROmorphone INJ 0.5 MG/0.5 ML SYR IV PRN ×2 (11:24→15:09)
[2021-02-13 11:37] LABS: Basophils # (auto) 0.02 K/uL (0-0.2); Basophils % (auto) 0.1 %; Eosinophils # (auto) 0.02 K/uL (0-0.5); Eosinophils % (auto) 0.1 %; Hematocrit (blood only) 40.5 % (37-47); Hemoglobin 13.9 g/dL (12.0-16.0); Immature Granulocytes # (auto) 0.05 K/uL (0.00-0.02); Immature Granulocytes % (auto) 0.3 %; Lymphocytes % (auto) 5.2 %; Mean Corpuscular Hemoglobin 32.4 pg (25-34); Mean Corpuscular Hgb Conc 34.3 g/dL (32-36); Mean Corpuscular Volume 94.4 fL (80-100); Mean Platelet Volume 8.6 fL (7.4-10.4); Monocytes # (auto) 1.03 K/uL (0.11-0.59); Monocytes % (auto) 5.3 %; Neutrophils # (auto) 17.27 K/uL (1.4-6.5); Platelet Count 430 K/uL (130-400); RDW Coefficient of Variation 13.8 % (11.5-14.5); RDW Standard Deviation 47.5 fL (36.4-46.3); Red Blood Count 4.29 M/uL (4.2-5.4); White Blood Count 19.39 K/uL (4.8-10.8)
[2021-02-13 11:55] LABS: Albumin Level 3.2 gm/dl (3.4-5.0); BUN Creatinine Ratio 19.1 (10-20); Calcium 9.9 mg/dl (8.5-10.1); Creatinine Clr Calc Pharmacy 68.2 ml/min; Est GFR (Non-African American) 93.2 ml/min; Potassium 3.8 mmol/L (3.5-5.1)
[2021-02-13 11:58] LABS: Albumin Globulin Ratio 0.8 (0.9-2); Bilirubin,Total 0.6 mg/dl (0.2-1); Globulin 4.3 gm/dl (2.5-4.0); Total Protein 7.5 gm/dl (6.4-8.2)
--- NOTE | 2021-02-13 12:10 | CT Scan Report ---
ABDOMEN AND PELVIS CT WITHOUT CONTRAST CT DOSE: 545.03 mGycm HISTORY: Acute left-sided flank pain LLQ abd pain, left flank pain TECHNIQUE: Multiaxial CT images of the abdomen and pelvis were performed without contrast. A dose lo wering technique was utilized adhering to the principles of ALARA. COMPARISON STUDY: None. FINDINGS: Small pericardial effusion. Coronary artery calcifications. Clear lung bases. No pneumatosi s or pneumoperitoneum. The unenhanced spleen, adrenal glands and liver are unremarkable. Cholecystect mattie. Scattered calcifications throughout the pancreas suggest sequela of chronic pancreatitis. Probab le cyst of the superior pole left kidney, 2.2 cm. Probable cyst of the inferior pole right kidney, 1. 4 cm. There are a few left-sided renal vascular calcifications measuring up to 3 mm. No definite aj l or ureteral calculi or hydronephrosis. Partially decompressed urinary bladder. Uterus and adnexa ap pear unremarkable. Extensive calcified plaque the abdominal aorta. No aneurysm or adenopathy. Tiny hiatal hernia. There is no bowel obstruction. Moderate fecal retention. There is mild wall thick ening within the splenic flexure and descending colon and descending sigmoid junction with mild peric olonic stranding. Mild wall thickening with partial distention of the ascending colon. Normal appendi x. No abscess. Unremarkable soft tissues. No acute fracture or suspicious bone lesion. Degenerative c hanges of the spine, pelvis and hips. Indeterminate peripherally sclerotic 1.2 cm lesion of the left sacrum. IMPRESSION: 1. Wall thickening of the descending colon and descending sigmoid junction with pericolonic stranding is compatible with a nonspecific likely infectious or inflammatory colitis. There are additional are as of wall thickening versus partial distention of the splenic flexure and ascending colon. Correlati on with follow-up colonoscopy recommended after treatment course to exclude the less likely possibili ty of an underlying lesion. 2. No bowel obstruction or pneumoperitoneum. 3. No urolith or obstructive uropathy. 4. Cholecystectomy. 5. Tiny hiatal hernia. ACT 112: Negative or not required by law. The above report was generated using voice recognition software. It may contain grammatical, syntax o r spelling errors. Electronically signed by: Henry Hadley M.D. 02/13/2021 12:09 PM
[2021-02-13] MEDS ORDERED: SODIUM CHLORIDE 0.9% 1000ML 1,000 ML IV ONE (13:57)
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
[2021-02-13] MEDS ORDERED: CARBOHYDRATES FOR HYPOGLYCEMIA PO PRN (16:30)
[2021-02-13] MEDS ORDERED: PIPERACILL/TAZOBAC CONSULT ACTIVE PRN (16:30)
[2021-02-13] MEDS ORDERED: GLUCOSE 40% GEL 15 GM TUBE PO PRN (16:30)
[2021-02-13] MEDS ORDERED: DEXTROSE 50% 50 ML SYRINGE IV PRN (16:30)
[2021-02-13] MEDS ORDERED: GLUCAGON FOR INJ 1 MG VIAL SQ PRN (16:30)
[2021-02-13] MEDS ORDERED: bisacodyL 10 MG SUPP PR ONE (16:30)
[2021-02-13] MEDS ORDERED: POLYETHYLENE (MIRALAX) 17 GM PACK PO PRN (16:30)
[2021-02-13] MEDS ORDERED: GLUCOSE 10 TABS/TUBE PO PRN (16:30)
[2021-02-13] MEDS: SODIUM CHLORIDE 0.9% 1000ML 1,000 ML IV SCH (16:46)
[2021-02-13] MEDS ORDERED: PHARMACY GLYCEMIC MGMT CONSULT PRN (16:48)
[2021-02-13 16:57] LABS: Appearance Urine Clear (Clear); Bilirubin Urine Negative (Negative); Blood Urine Trace-intact (Negative); Color Urine Yellow; Glucose Urine UA Negative (Negative); Ketones Urine 1+ (Negative); Leukocyte Esterase Urine Negative (Negative); Nitrite Urine Negative (Negative); Protein Urine Negative (Negative); Specific Gravity Urine 1.025 (1.000-1.030); Urobilinogen Urine Negative (Negative)
[2021-02-13] MEDS ORDERED: PIPERACILLIN/TAZOBACTAM 3.375 GM in DEXTROSE 5% 100 ML IV ONE (17:00)
[2021-02-13] MEDS: ONDANSETRON INJ 2 MG/ML 2 ML VIAL IV PRN (17:17)
[2021-02-13 17:47] LABS: Bacteria Urine 1+ (Negative); RBC Urine 0-4 /hpf (0-4)
[2021-02-13] MEDS: INSULIN GLARGINE SOLOSTAR 100 UNITS/ML 3 ML PEN SQ SCH (17:54)
[2021-02-13] MEDS: INSULIN ASPART 100 UNITS/ML 3 ML PEN SC SCH ×2 (17:56→21:28)
[2021-02-13] MEDS: traMADol HCL 50 MG TABLET PO PRN (19:10)
[2021-02-13] MEDS: PROPRANOLOL HCL 20 MG TAB PO SCH (21:10)
[2021-02-13] MEDS: ENOXAPARIN INJ 40 MG/0.4 ML SYR SQ SCH (21:11)
[2021-02-13] MEDS: PIPERACILLIN/TAZOBACTAM 3.375 GM in DEXTROSE 5% 100 ML IV SCH (21:29)
[2021-02-14] MEDS: oxyCODONE HCL IR 5 MG TAB (IMMEDIATE RELEASE) PO PRN ×2 (01:59→20:52)
[2021-02-14] MEDS: SODIUM CHLORIDE 0.9% 1000ML 1,000 ML IV SCH (02:01)
[2021-02-14] MEDS: PIPERACILLIN/TAZOBACTAM 3.375 GM in DEXTROSE 5% 100 ML IV SCH ×3 (06:06→22:03)
[2021-02-14 08:06] LABS: Hematocrit (blood only) 32.5 % (37-47); Hemoglobin 10.7 g/dL (12.0-16.0); Mean Corpuscular Hgb Conc 32.9 g/dL (32-36); Mean Corpuscular Volume 97.3 fL (80-100); Mean Platelet Volume 8.7 fL (7.4-10.4); Platelet Count 410 K/uL (130-400); Red Blood Count 3.34 M/uL (4.2-5.4); White Blood Count 11.41 K/uL (4.8-10.8)
[2021-02-14 08:12] LABS: Calcium 8.7 mg/dl (8.5-10.1); Creatinine Clr Calc Pharmacy 88.7 ml/min; Est GFR (African American) 117.7 ml/min; Est GFR (Non-African American) 101.6 ml/min; Potassium 3.7 mmol/L (3.5-5.1)
[2021-02-14] MEDS: ONDANSETRON INJ 2 MG/ML 2 ML VIAL IV PRN (08:25)
[2021-02-14] MEDS: traMADol HCL 50 MG TABLET PO PRN (08:25)
[2021-02-14] MEDS: PROPRANOLOL HCL 20 MG TAB PO SCH ×2 (08:30→20:52)
[2021-02-14] MEDS: INSULIN ASPART 100 UNITS/ML 3 ML PEN SC SCH ×4 (08:33→22:02)
[2021-02-14] MEDS: INSULIN GLARGINE SOLOSTAR 100 UNITS/ML 3 ML PEN SQ SCH ×2 (08:33→22:02)
[2021-02-14 09:10] LABS: Estimated Average Glucose 126 mg/dl
--- NOTE | 2021-02-14 09:32 | Pharmacy Report ---
Pharmacy Glycemic Short Note 2 - Date of Service February 14, 2021 - Glycemic Short BSG Results (Last 24 hours): 02/13/21 02/13/21 02/13/21 11:25 14:17 17: Glucose 125 H POC Glucose 129 H 107 H 02/13/21 02/14/21 02/14/21 21:06 07:13 08:29 Glucose 92 POC Glucose 88 87 OUTPATIENT ANTIDIABETIC REGIMEN: * Metformin 1000 mg PO BIDM * Lantus 14 units SC BID * Trulicity 1.5 mg SC every Saturday * HbA1c = 6.0% (02/14/21) ASSESSMENT: * 65 yo F admitted yesterday secondary to nausea, vomiting, and colitis. Pharmacy was consulted to assist with inpatient glycemic management. * She was started on her home basal regimen with Novolog based on a weight and stress of 2. BSGs have been well controlled since admission. * Fasting was below goal this morning at 87 mg/dL. Patient already received home dose of Lantus this AM. Will reduce basal starting this evening given nausea and vomiting. PLAN FOR INPATIENT GLYCEMIC CONTROL: * Hold outpatient oral diabetes medications * Basal insulin - decreased * Lantus 10 units SQ BID * Bolus insulin - no change * NovoLog per scale ACHS or Q6hrs while NPO * Goal Range: Low 110 mg/dL - High 140 mg/dL * Correction Factor: 45 mg/dL/unit * Nutritional / Prandial insulin per carb ratio of 1 unit per 15 grams CHO consumed PLAN FOR DISCHARGE: * HbA1c = 6.0% from this admission which is at goal given this patient's age and comorbidities. * Recommend continuing outpatient regimen upon discharge as long as patient is not experiencing hypoglycemia at home.
--- NOTE | 2021-02-14 11:56 | Hospitalist Progress Note ---
Date of Service February 14, 2021 Assessment & Plan (1) Nausea & vomiting: Nausea vomiting x2 days perhaps constipation related although with leukocytosis and colitis will be treated for bacterial colitis , will initiate Zosyn. However concern would be that this is not infectious as you would expect diarrhea to come with the infection. Subsequently without diarrhea we cannot perform stool studies. Consideration of this is postoperative constipation resulting in pain in the inflammatory bowel changes subsequently we will provide a o'clock suppository without results may consider enema patient's been taking oral laxatives from above at home without any help when she does have some stool production we can consider continuing cathartic agents Ct Abd/Pelvis 02/13/17 IMPRESSION: 1. Wall thickening of the descending colon and descending sigmoid junction with pericolonic stranding is compatible with a nonspecific likely infectious or inflammatory colitis. There are additional areas of wall thickening versus partial distention of the splenic flexure and ascending colon. Correlation with follow-up colonoscopy recommended after treatment course to exclude the less likely possibility of an underlying lesion. 2. No bowel obstruction or pneumoperitoneum. 3. No urolith or obstructive uropathy. 4. Cholecystectomy. On 02/14 Her WBC has improved. Will continue antibiotics. continue clear liquid diet. No longer having nausea. will repeat KUB in AM. (2) Diabetes mellitus, type 2: Typically on glargine Trulicity and Metformin will continue on glargine with sliding scale insulin holding Trulicity and Metformin (3) Hyperlipidemia: Typically will continue to take her atorvastatin 80 (4) Tear of medial meniscus of right knee: Patient informs that her knee looks good to her it is slightly red on examination if anything worsens consideration of consultation with Dr. Celestin. Of note surgical wound cultures from 02 February are negative for growth (5) DVT prophylaxis: DVT prophylaxis will be on Lovenox therapy for DVT prevention Admission and Anticipated Discharge Date Admission Date: February 13, 2021 Subjective 65 yo female reports feeling better, but not at baseline. Review of Systems Review of Systems: Mild distress and fatigue no headache, blurry or double vision no speech or swallowing issues no chest pain, pressure or palpitations no shortness of breath, cough or wheezes Left lower quadrant abdominal pain, nausea vomiting, constipation no dysuria, hematuria or frequency Proving right knee incision and pain Left CVA tenderness (no history of kidney stones and no stone seen on CT scan) no bruising, bleeding or rashes no focal signs of weakness or numbness or altered sensation no complaints of anxiety or depression.. Physical Exam Physical Exam: The patient appeared thin of stature but appropriate development nutrition Vital signs as documented. Head exam is normocephalic atraumatic Neck is without JVD, thyromegaly, or carotid bruits. Lungs are clear to auscultation, no focal loss of breath sounds Cardiac exam, Rhythm is regular.. No murmurs, rubs or gallops. Abdominal exam reveals normal to hyperactive bowel sounds, soft left lower quadrant tenderness with some guarding no rebound Patient also has some left-sided CVA angle tenderness Extremities right knee has a healing incision with lino in place there is some erythema but no drainage Neurologic exam is alert and oriented, no focal loss of strength or sensation Skin is with right knee incision as mentioned Psychologically is without concerns for anxiety or depression Results & Data Results & Data ([facility]) Vital Signs (Past 12 Hours) Vital Signs Temp Pulse Resp BP Pulse Ox 02/14/21 07:24 36.7 C 73 16 105/62 97 PG Care Time/CCT Total # of Minutes Spent Total Time Spent with Patient: Total time spent is greater than 50% in coordination of care (as documented) at patient's floor/unit and/or counseling patient: Coding Level of Care Code 48222 Subseq Obs Care Lvl 2 Diagnoses Nausea & vomiting R11.2 Diabetes mellitus, type 2 E11.9 Hyperlipidemia E78.5 Tear of medial meniscus of right knee S83.241A DVT prophylaxis Z29.9 Time Spent (min) 25
[2021-02-14] MEDS: HYDROmorphone INJ 0.5 MG/0.5 ML SYR IV PRN ×3 (13:15→22:10)
[2021-02-14] MEDS: POLYETHYLENE (MIRALAX) 17 GM PACK PO SCH ×2 (15:16→20:54)
[2021-02-14] MEDS ORDERED: GLYCERIN ADULT 12 SUPP/BOX SUPP PR ONE (16:57)
[2021-02-14] MEDS: ENOXAPARIN INJ 40 MG/0.4 ML SYR SQ SCH (20:49)
[2021-02-14] MEDS ORDERED: INSULIN GLARGINE SOLOSTAR 100 UNITS/ML 3 ML PEN SQ SCH (21:00)
[2021-02-15] MEDS: HYDROmorphone INJ 0.5 MG/0.5 ML SYR IV PRN ×5 (02:17→22:50)
[2021-02-15] MEDS: ONDANSETRON INJ 2 MG/ML 2 ML VIAL IV PRN (02:22)
[2021-02-15 05:54] LABS: Hematocrit (blood only) 31.8 % (37-47); Hemoglobin 10.5 g/dL (12.0-16.0); Mean Corpuscular Hemoglobin 31.6 pg (25-34); Mean Corpuscular Volume 95.8 fL (80-100); Mean Platelet Volume 8.3 fL (7.4-10.4); Platelet Count 372 K/uL (130-400); RDW Coefficient of Variation 13.7 % (11.5-14.5); RDW Standard Deviation 47.4 fL (36.4-46.3); Red Blood Count 3.32 M/uL (4.2-5.4); White Blood Count 13.12 K/uL (4.8-10.8)
[2021-02-15 06:18] LABS: Calcium 8.5 mg/dl (8.5-10.1); Creatinine Clr Calc Pharmacy 85.3 ml/min; Est GFR (African American) 116.2 ml/min; Est GFR (Non-African American) 100.3 ml/min; Potassium 3.7 mmol/L (3.5-5.1)
[2021-02-15] MEDS: PIPERACILLIN/TAZOBACTAM 3.375 GM in DEXTROSE 5% 100 ML IV SCH ×3 (06:18→21:08)
[2021-02-15] MEDS: ACETAMINOPHEN 325 MG TAB PO PRN ×2 (08:05→22:50)
[2021-02-15] MEDS: PROPRANOLOL HCL 20 MG TAB PO SCH ×2 (08:06→20:52)
[2021-02-15] MEDS: POLYETHYLENE (MIRALAX) 17 GM PACK PO SCH ×3 (08:06→20:55)
[2021-02-15] MEDS: INSULIN GLARGINE SOLOSTAR 100 UNITS/ML 3 ML PEN SQ SCH ×2 (08:07→21:06)
--- NOTE | 2021-02-15 08:45 | XRay Report ---
KUB HISTORY: nausea/ colitis COMPARISON: Abdomen and pelvis CT 02/13/2021. FINDINGS: The bowel gas pattern is unremarkable. There are no dilated loops of small bowel to suggest an obstruction. No renal calculi. No ureteral calculi. Calcifications in the deep pelvis likely rep resent phleboliths. Moderate well-formed stool within the colon. Prior cholecystectomy. No pneumoperi toneum or pneumatosis. IMPRESSION: 1. No evidence for bowel obstruction. 2. Moderate well-formed stool seen throughout the colon. ACT 112: Negative or not required by law. Electronically signed by: David Medina M.D. 02/15/2021 8:43 AM
[2021-02-15] MEDS: INSULIN ASPART 100 UNITS/ML 3 ML PEN SC SCH ×4 (09:23→20:49)
--- NOTE | 2021-02-15 09:42 | Pharmacy Report ---
Pharmacy Glycemic Short Note 2 - Date of Service February 15, 2021 - Glycemic Short BSG Results (Last 24 hours): 02/14/21 02/14/21 02/14/21 11:58 17:07 22:01 Glucose POC Glucose 70 84 77 02/15/21 02/15/21 05:45 08:07 Glucose 76 POC Glucose 84 OUTPATIENT ANTIDIABETIC REGIMEN: * Metformin 1000 mg PO BIDM * Lantus 14 units SC BID * Trulicity 1.5 mg SC every Saturday * HbA1c = 6.0% (02/14/21) ASSESSMENT: 02/15: * BSGs well controlled yesterday: 87-70-84-77 mg/dL * Received 14 units of basal + 2 units of bolus * Fasting BSG well controlled at 84 mg/dL this AM * Will split 14 units total into bid dosing today 02/14: * 65 yo F admitted yesterday secondary to nausea, vomiting, and colitis. Pharmacy was consulted to assist with inpatient glycemic management. * She was started on her home basal regimen with Novolog based on a weight and stress of 2. BSGs have been well controlled since admission. * Fasting was below goal this morning at 87 mg/dL. Patient already received home dose of Lantus this AM. Will reduce basal starting this evening given nausea and vomiting. PLAN FOR INPATIENT GLYCEMIC CONTROL: * Hold outpatient oral diabetes medications * Basal insulin * Lantus 7 units SQ BID * Bolus insulin * NovoLog per scale ACHS or Q6hrs while NPO * Goal Range: Low 110 mg/dL - High 140 mg/dL * Correction Factor: 45 mg/dL/unit * Nutritional / Prandial insulin per carb ratio of 1 unit per 15 grams CHO consumed PLAN FOR DISCHARGE: * HbA1c = 6.0% from this admission which is at goal given this patient's age and comorbidities. * Recommend continuing outpatient regimen upon discharge as long as patient is not experiencing hypoglycemia at home.
[2021-02-15 14:13] LABS: Basophils # (auto) 0.03 K/uL (0-0.2); Basophils % (auto) 0.3 %; Eosinophils % (auto) 2.8 %; Hematocrit (blood only) 32.2 % (37-47); Hemoglobin 10.7 g/dL (12.0-16.0); Immature Granulocytes # (auto) 0.03 K/uL (0.00-0.02); Immature Granulocytes % (auto) 0.3 %; Lymphocytes # (auto) 2.11 K/uL (1.2-3.4); Lymphocytes % (auto) 19.5 %; Mean Corpuscular Hemoglobin 31.8 pg (25-34); Mean Corpuscular Hgb Conc 33.2 g/dL (32-36); Mean Corpuscular Volume 95.8 fL (80-100); Mean Platelet Volume 8.5 fL (7.4-10.4); Monocytes # (auto) 1.15 K/uL (0.11-0.59); Monocytes % (auto) 10.6 %; Neutrophils # (auto) 7.18 K/uL (1.4-6.5); Neutrophils % (auto) 66.5 %; Platelet Count 409 K/uL (130-400); RDW Coefficient of Variation 13.7 % (11.5-14.5); RDW Standard Deviation 47.9 fL (36.4-46.3); Red Blood Count 3.36 M/uL (4.2-5.4)
[2021-02-15 14:34] LABS: BUN Creatinine Ratio 9.4 (10-20); Calcium 8.9 mg/dl (8.5-10.1); Creatinine Clr Calc Pharmacy 76.5 ml/min; Est GFR (African American) 112.1 ml/min; Est GFR (Non-African American) 96.7 ml/min; Potassium 3.6 mmol/L (3.5-5.1)
[2021-02-15] MEDS: ENOXAPARIN INJ 40 MG/0.4 ML SYR SQ SCH (20:54)
--- NOTE | 2021-02-15 22:14 | Hospitalist Progress Note ---
Date of Service February 15, 2021 Assessment & Plan (1) Nausea & vomiting: Nausea vomiting x2 days perhaps constipation related although with leukocytosis and colitis will be treated for bacterial colitis , will initiate Zosyn. However concern would be that this is not infectious as you would expect diarrhea to come with the infection. Subsequently without diarrhea we cannot perform stool studies. Consideration of this is postoperative constipation resulting in pain in the inflammatory bowel changes subsequently we will provide a o'clock suppository without results may consider enema patient's been taking oral laxatives from above at home without any help when she does have some stool production we can consider continuing cathartic agents Ct Abd/Pelvis 02/13/17 IMPRESSION: 1. Wall thickening of the descending colon and descending sigmoid junction with pericolonic stranding is compatible with a nonspecific likely infectious or inflammatory colitis. There are additional areas of wall thickening versus partial distention of the splenic flexure and ascending colon. Correlation with follow-up colonoscopy recommended after treatment course to exclude the less likely possibility of an underlying lesion. 2. No bowel obstruction or pneumoperitoneum. 3. No urolith or obstructive uropathy. 4. Cholecystectomy. On 02/15 Her WBC remains improved. However patient has not had any BM or gas since she has been here. Normally she has 1 BM per week. Likely very sensitiveto opiates. Explained to patient that will need to hold off narcotics, patient reports having spasms. may consider relistor, for now will try golytely. Will continue antibiotics. continue liquid diet, now full. No longer having nausea. KUB shows no ileus. (2) Diabetes mellitus, type 2: Typically on glargine Trulicity and Metformin will continue on glargine with sliding scale insulin holding Trulicity and Metformin (3) Hyperlipidemia: Typically will continue to take her atorvastatin 80 (4) Tear of medial meniscus of right knee: Patient informs that her knee looks good to her it is slightly red on examination if anything worsens consideration of consultation with Dr. Celestin. Of note surgical wound cultures from 02 February are negative for growth (5) DVT prophylaxis: DVT prophylaxis will be on Lovenox therapy for DVT prevention Admission and Anticipated Discharge Date Admission Date: February 15, 2021 Subjective Patient reports having pain and no significant improvement, Review of Systems Review of Systems: All systems reviewed & are unremarkable except as noted in HPI & below Physical Exam Physical Exam: The patient appeared thin of stature but appropriate development nutrition Vital signs as documented. Head exam is normocephalic atraumatic Neck is without JVD, thyromegaly, or carotid bruits. Lungs are clear to auscultation, no focal loss of breath sounds Cardiac exam, Rhythm is regular.. No murmurs, rubs or gallops. Abdominal exam reveals normal to hyperactive bowel sounds, soft left lower quadrant tenderness with some guarding no rebound Patient also has some left-sided CVA angle tenderness Extremities right knee has a healing incision with lino in place there is some erythema but no drainage Neurologic exam is alert and oriented, no focal loss of strength or sensation Skin is with right knee incision as mentioned Psychologically is without concerns for anxiety or depression Results & Data Results & Data ([facility]) Vital Signs (Past 12 Hours) Vital Signs Temp Pulse Resp BP Pulse Ox 02/15/21 16:01 36.7 C 61 18 96/60 L 95 PG Care Time/CCT Total # of Minutes Spent Total Time Spent with Patient: Total time spent is greater than 50% in coordination of care (as documented) at patient's floor/unit and/or counseling patient: Coding Level of Care Code 08644 Subseq Hosp Care Lvl 3 Diagnoses Nausea & vomiting R11.2 Diabetes mellitus, type 2 E11.9 Hyperlipidemia E78.5 Tear of medial meniscus of right knee S83.241A DVT prophylaxis Z29.9 Time Spent (min) 35
[2021-02-16] MEDS: traMADol HCL 50 MG TABLET PO PRN ×2 (00:33→14:54)
[2021-02-16] MEDS: HYDROmorphone INJ 0.5 MG/0.5 ML SYR IV PRN (03:54)
[2021-02-16] MEDS: PIPERACILLIN/TAZOBACTAM 3.375 GM in DEXTROSE 5% 100 ML IV SCH ×3 (06:10→23:02)
[2021-02-16 07:29] LABS: Hematocrit (blood only) 33.2 % (37-47); Mean Corpuscular Hemoglobin 31.8 pg (25-34); Mean Corpuscular Hgb Conc 33.1 g/dL (32-36); Mean Platelet Volume 9.1 fL (7.4-10.4); Platelet Count 446 K/uL (130-400); RDW Coefficient of Variation 13.7 % (11.5-14.5); RDW Standard Deviation 47.8 fL (36.4-46.3); Red Blood Count 3.46 M/uL (4.2-5.4); White Blood Count 11.31 K/uL (4.8-10.8)
[2021-02-16 07:56] LABS: BUN Creatinine Ratio 10.5 (10-20); Creatinine Clr Calc Pharmacy 83.7 ml/min; Est GFR (African American) 115.5 ml/min; Est GFR (Non-African American) 99.6 ml/min; Potassium 4.1 mmol/L (3.5-5.1)
[2021-02-16] MEDS ORDERED: HYDROmorphone INJ 0.5 MG/0.5 ML SYR IV PRN (08:28)
[2021-02-16] MEDS ORDERED: SENNOSIDES 8.8 MG/5 ML UDC PO SCH (09:00)
[2021-02-16] MEDS: oxyCODONE HCL IR 5 MG TAB (IMMEDIATE RELEASE) PO PRN ×2 (09:20→20:30)
[2021-02-16] MEDS: ONDANSETRON INJ 2 MG/ML 2 ML VIAL IV PRN ×2 (09:20→20:30)
[2021-02-16] MEDS: ACETAMINOPHEN 325 MG TAB PO PRN (09:20)
[2021-02-16] MEDS: PROPRANOLOL HCL 20 MG TAB PO SCH ×2 (09:29→20:30)
[2021-02-16] MEDS: POLYETHYLENE (MIRALAX) 17 GM PACK PO SCH ×3 (09:30→20:31)
[2021-02-16] MEDS: INSULIN GLARGINE SOLOSTAR 100 UNITS/ML 3 ML PEN SQ SCH (09:31)
[2021-02-16] MEDS: SENNA 8.6 MG TAB PO SCH (09:33)
[2021-02-16] MEDS: DOCUSATE SODIUM 100 MG CAP PO SCH ×2 (09:33→20:31)
[2021-02-16] MEDS: INSULIN ASPART 100 UNITS/ML 3 ML PEN SC SCH ×4 (09:37→21:43)
--- NOTE | 2021-02-16 10:15 | Pharmacy Report ---
Pharmacy Glycemic Short Note 2 - Date of Service February 16, 2021 - Glycemic Short BSG Results (Last 24 hours): 02/15/21 02/15/21 02/15/21 11:56 14:03 17:05 Glucose 84 POC Glucose 122 H 76 02/15/21 02/16/21 02/16/21 20:44 06:34 08:23 Glucose 76 POC Glucose 121 H 80 OUTPATIENT ANTIDIABETIC REGIMEN: * Metformin 1000 mg PO BIDM * Lantus 14 units SC BID * Trulicity 1.5 mg SC every Saturday * HbA1c = 6.0% (02/14/21) ASSESSMENT: 02/16: * Patient continues to be well controlled, however patient appears to be eating very little. * Fasting BSG was 80 today with only 7 units of insulin yesterday. Will continue with once daily lantus for now. No bolus insulin was required. 02/15: * BSGs well controlled yesterday: 87-70-84-77 mg/dL * Received 14 units of basal + 2 units of bolus * Fasting BSG well controlled at 84 mg/dL this AM * Will split 14 units total into bid dosing today 02/14: * 65 yo F admitted yesterday secondary to nausea, vomiting, and colitis. Pharmacy was consulted to assist with inpatient glycemic management. * She was started on her home basal regimen with Novolog based on a weight and stress of 2. BSGs have been well controlled since admission. * Fasting was below goal this morning at 87 mg/dL. Patient already received home dose of Lantus this AM. Will reduce basal starting this evening given nausea and vomiting. PLAN FOR INPATIENT GLYCEMIC CONTROL: * Hold outpatient oral diabetes medications * Basal insulin * Lantus 7 units SQ am * Bolus insulin * NovoLog per scale ACHS or Q6hrs while NPO * Goal Range: Low 110 mg/dL - High 140 mg/dL * Correction Factor: 45 mg/dL/unit * Nutritional / Prandial insulin per carb ratio of 1 unit per 15 grams CHO consumed PLAN FOR DISCHARGE: * HbA1c = 6.0% from this admission which is at goal given this patient's age and comorbidities. * Recommend continuing outpatient regimen upon discharge as long as patient is not experiencing hypoglycemia at home.
--- NOTE | 2021-02-16 10:37 | XRay Report ---
KUB CLINICAL HISTORY: constipation COMPARISON STUDY: CT of the abdomen and pelvis February 13, 2021. KUB February 15, 2021. FINDINGS: Incidental note is made of cholecystectomy clips. There is no evidence for a bowel obstruct ion. Moderate amount of stool within the colon is similar to prior exam. IMPRESSION: 1. No evidence for a bowel obstruction. 2. Moderate amount of stool within the colon. ACT 112: Negative or not required by law. Electronically signed by: John Johnson M.D. 02/16/2021 10:36 AM
[2021-02-16] MEDS: DICYCLOMINE HCL 20 MG TAB PO SCH ×2 (18:02→20:32)
[2021-02-16] MEDS: ENOXAPARIN INJ 40 MG/0.4 ML SYR SQ SCH (21:02)
--- NOTE | 2021-02-16 21:23 | Hospitalist Progress Note ---
Date of Service February 16, 2021 Assessment & Plan (1) Nausea & vomiting: Nausea vomiting x2 days perhaps constipation related although with leukocytosis and colitis will be treated for bacterial colitis , will initiate Zosyn. However concern would be that this is not infectious as you would expect diarrhea to come with the infection. Subsequently without diarrhea we cannot perform stool studies. Consideration of this is postoperative constipation resulting in pain in the inflammatory bowel changes subsequently we will provide a o'clock suppository without results may consider enema patient's been taking oral laxatives from above at home without any help when she does have some stool production we can consider continuing cathartic agents Ct Abd/Pelvis 02/13/17 IMPRESSION: 1. Wall thickening of the descending colon and descending sigmoid junction with pericolonic stranding is compatible with a nonspecific likely infectious or inflammatory colitis. There are additional areas of wall thickening versus partial distention of the splenic flexure and ascending colon. Correlation with follow-up colonoscopy recommended after treatment course to exclude the less likely possibility of an underlying lesion. 2. No bowel obstruction or pneumoperitoneum. 3. No urolith or obstructive uropathy. 4. Cholecystectomy. On 02/16 Her WBC remains improved but elevated However patient has not had any BM or gas since she has been here. Normally she has 1 BM per week. Likely very sensitiveto opiates. Explained to patient that will need to hold off narcotics, patient reports having spasms. may consider relistor, continue golytely PO TID. Will add colace and senna on 02/16. Will continue antibiotics. Hold dilaudid and continue oxycodone and tramadol. will add bentyl continue full diet. No longer having nausea. KUB shows no ileus. (2) Diabetes mellitus, type 2: Typically on glargine Trulicity and Metformin will continue on glargine with sliding scale insulin holding Trulicity and Metformin (3) Hyperlipidemia: Typically will continue to take her atorvastatin 80 (4) Tear of medial meniscus of right knee: Patient informs that her knee looks good to her it is slightly red on examination if anything worsens consideration of consultation with Dr. Celestin. Of note surgical wound cultures from 02 February are negative for growth (5) DVT prophylaxis: DVT prophylaxis will be on Lovenox therapy for DVT prevention Admission and Anticipated Discharge Date Admission Date: February 15, 2021 Subjective Patient reports feeling frustrated that she has not improved. She continues to have constipation and abdominal cramps. Patient states she wants to continue to use opiates though she understands this may worsen her constipation. Review of Systems Review of Systems: All systems reviewed & are unremarkable except as noted in HPI & below Physical Exam Physical Exam: The patient appeared thin of stature but appropriate development nutrition Vital signs as documented. Head exam is normocephalic atraumatic Neck is without JVD, thyromegaly, or carotid bruits. Lungs are clear to auscultation, no focal loss of breath sounds Cardiac exam, Rhythm is regular.. No murmurs, rubs or gallops. Abdominal exam reveals normal to hyperactive bowel sounds, soft left lower quadrant tenderness with some guarding no rebound Patient also has some left-sided CVA angle tenderness Extremities right knee has a healing incision with lino in place there is some erythema but no drainage Neurologic exam is alert and oriented, no focal loss of strength or sensation Skin is with right knee incision as mentioned Psychologically is without concerns for anxiety or depression Results & Data Results & Data ([facility]) Vital Signs (Past 12 Hours) Vital Signs Temp Pulse Resp BP Pulse Ox 02/16/21 16:00 36.9 C 64 18 108/63 96 PG Care Time/CCT Total # of Minutes Spent Total Time Spent with Patient: Total time spent is greater than 50% in coordination of care (as documented) at patient's floor/unit and/or counseling patient: Coding Level of Care Code 39319 Subseq Hosp Care Lvl 3 Diagnoses Nausea & vomiting R11.2 Diabetes mellitus, type 2 E11.9 Hyperlipidemia E78.5 Tear of medial meniscus of right knee S83.241A DVT prophylaxis Z29.9 Time Spent (min) 35
[2021-02-17] MEDS: traMADol HCL 50 MG TABLET PO PRN (01:19)
[2021-02-17] MEDS: PIPERACILLIN/TAZOBACTAM 3.375 GM in DEXTROSE 5% 100 ML IV SCH ×3 (05:45→21:43)
[2021-02-17] MEDS: oxyCODONE HCL IR 5 MG TAB (IMMEDIATE RELEASE) PO PRN ×3 (05:51→21:38)
[2021-02-17] MEDS: ONDANSETRON INJ 2 MG/ML 2 ML VIAL IV PRN ×3 (05:51→21:42)
[2021-02-17 06:27] LABS: Hematocrit (blood only) 33.9 % (37-47); Hemoglobin 11.2 g/dL (12.0-16.0); Mean Corpuscular Hemoglobin 31.9 pg (25-34); Mean Corpuscular Volume 96.6 fL (80-100); Platelet Count 494 K/uL (130-400); RDW Coefficient of Variation 13.7 % (11.5-14.5); Red Blood Count 3.51 M/uL (4.2-5.4); White Blood Count 13.33 K/uL (4.8-10.8)
[2021-02-17 07:04] LABS: BUN Creatinine Ratio 7.6 (10-20); Creatinine Clr Calc Pharmacy 69.3 ml/min; Est GFR (African American) 108.5 ml/min; Est GFR (Non-African American) 93.6 ml/min; Potassium 4.3 mmol/L (3.5-5.1)
[2021-02-17] MEDS: INSULIN ASPART 100 UNITS/ML 3 ML PEN SC SCH ×4 (09:47→21:43)
[2021-02-17] MEDS: DOCUSATE SODIUM 100 MG CAP PO SCH ×2 (09:48→20:53)
[2021-02-17] MEDS: DICYCLOMINE HCL 20 MG TAB PO SCH ×4 (09:48→20:46)
[2021-02-17] MEDS: SENNA 8.6 MG TAB PO SCH (09:48)
[2021-02-17] MEDS: POLYETHYLENE (MIRALAX) 17 GM PACK PO SCH ×3 (09:49→20:53)
[2021-02-17] MEDS: INSULIN GLARGINE SOLOSTAR 100 UNITS/ML 3 ML PEN SQ SCH (09:49)
[2021-02-17] MEDS: PROPRANOLOL HCL 20 MG TAB PO SCH ×2 (09:50→21:42)
[2021-02-17] MEDS ORDERED: OPTIRAY 320 100ml IV ONE (12:29)
--- NOTE | 2021-02-17 12:32 | XRay Report ---
[facility]TY CLINICAL HISTORY: CONSTIPATION COMPARISON STUDY: [facility] February 16, 2021. FINDINGS: Incidental note is made of cholecystectomy clips. A moderate amount of stool within the col on and rectum is again noted. This is similar to prior exam. There is no evidence for a bowel obstruc tion. IMPRESSION: 1. Moderate amount of stool within the colon and the rectum. 2. No evidence for a bowel obstruction. ACT 112: Negative or not required by law. Electronically signed by: John Johnson M.D. 02/17/2021 12:31 PM
--- NOTE | 2021-02-17 14:57 | CT Scan Report ---
CT abd pelvis IV con only CLINICAL HISTORY: abd. pain/ check for obstruction/ ischemia COMPARISON STUDY: February 13, 2021 TECHNIQUE: A dose lowering technique was utilized adhering to the principles of ALARA. CT DOSE: 338.94 mGycm FINDINGS: Lower chest: Mild septal thickening and at the peripheral aspect of bilateral lower lobes which could represent mild interstitial lung disease. Redemonstration of the mild pericardial effusion. Liver: The contrast-enhanced liver is normal in size, contour, and attenuation. There is no intrahepa tic biliary ductal dilatation. The hepatic veins and portal veins are patent. Gallbladder: Surgically absent Spleen: Normal in size and attenuation. Pancreas: Unremarkable. Adrenal glands: Right adrenal gland is unremarkable. Nodularity of the left adrenal gland is again se en. Kidneys: There is symmetric renal cortical enhancement. The kidneys are normal in size without hydron ephrosis. There are a few hypoattenuating lesions are seen within bilateral kidneys, largest is seen within superior aspect of the left kidney and measuring 1.8 cm in diameter, most likely represent cys ts. These lesions are more conspicuous on current exam due to IV contrast administration. Bowel: Small hiatal hernia is seen. Loops of small bowel are nondilated. Gas and stool-filled loops o f transverse colon is slightly dilated measuring up to 6.4 cm in diameter. Extensive stool content is seen within the pelvic region. Small amount of free fluid seen within lower pelvic region as well as mild fat stranding surrounding loops of sigmoid colon. No transition zone is seen. Evaluation is limited due to lack of oral contras t. Mild diverticulosis of sigmoid colon is seen. No significant bowel wall thickening is seen. Vasculature: The abdominal aorta is normal in course and caliber. Adenopathy: Multiple small mesenteric and retroperitoneal lymph nodes are seen, measuring less than 1 cm in short axis and not pathology ankle by CT size criteria. Pelvic viscera: Urinary bladder is decompressed and poorly seen. The uterus is not well seen, likely surgically absent. Skeletal structures: Osseous structures are slightly demineralized. Degenerative changes of the spine are again seen. Unchanged sclerotic lesion is again seen within left sacrum and the right pedicle of L5. IMPRESSION: 1. Diverticulosis of sigmoid colon with worsening inflammatory changes within lower pelvic region as well as small amount of free fluid within lower pelvis which could represent diverticulitis. Evaluat ion is limited due to lack of oral contrast. There is no free intra-abdominal gas seen. There is mild interval dilatation of the colonic loops which likely due to ileus. 2. Small hiatal hernia. 3. Mild pericardial effusion. 4. Minimal septal thickening within bilateral lung bases which could represent mild interstitial bre g fibrosis. 5. Renal cysts. 6. Sclerotic lesions within spine and sacrum. Please correlate above-mentioned findings was prior hi story of neoplastic process. ACT 112: Negative or not required by law. The above report was generated using voice recognition software. It may contain grammatical, syntax o r spelling errors. Electronically signed by: Lida Peck DO 02/17/2021 2:56 PM
[2021-02-17] MEDS: METHYLNALTREXONE BROMIDE 12 MG/0.6 ML VIAL SQ SCH (19:12)
[2021-02-17] MEDS: ENOXAPARIN INJ 40 MG/0.4 ML SYR SQ SCH (20:46)
--- NOTE | 2021-02-17 23:26 | Hospitalist Progress Note ---
Date of Service February 17, 2021 Assessment & Plan (1) Nausea & vomiting: Nausea vomiting x2 days perhaps constipation related although with leukocytosis and colitis will be treated for bacterial colitis , will initiate Zosyn. However concern would be that this is not infectious as you would expect diarrhea to come with the infection. Subsequently without diarrhea we cannot perform stool studies. Consideration of this is postoperative constipation resulting in pain in the inflammatory bowel changes subsequently we will provide a o'clock suppository without results may consider enema patient's been taking oral laxatives from above at home without any help when she does have some stool production we can consider continuing cathartic agents Ct Abd/Pelvis 02/13/17 IMPRESSION: 1. Wall thickening of the descending colon and descending sigmoid junction with pericolonic stranding is compatible with a nonspecific likely infectious or inflammatory colitis. There are additional areas of wall thickening versus partial distention of the splenic flexure and ascending colon. Correlation with follow-up colonoscopy recommended after treatment course to exclude the less likely possibility of an underlying lesion. 2. No bowel obstruction or pneumoperitoneum. 3. No urolith or obstructive uropathy. 4. Cholecystectomy. On 02/17 Her WBC remains improved but elevated at 13 However patient has not had any BM She is passing gas Normally she has 1 BM per week. Likely very sensitive to opiates. Explained to patient that will need to hold off narcotics, patient reports having spasms. continue golytely PO TID and colace and senna will start relistor today. Will continue antibiotics. Hold dilaudid and continue oxycodone and tramadol. will add bentyl continue full diet. No longer having nausea. KUB shows no ileus. repeat ct scan shows possible diverticulitis. Patient does not appear septic. (2) Diabetes mellitus, type 2: Typically on glargine Trulicity and Metformin will continue on glargine with sliding scale insulin holding Trulicity and Metformin (3) Hyperlipidemia: Typically will continue to take her atorvastatin 80 (4) Tear of medial meniscus of right knee: Patient informs that her knee looks good to her it is slightly red on examination if anything worsens consideration of consultation with Dr. Celestin. Of note surgical wound cultures from 02 February are negative for growth (5) DVT prophylaxis: DVT prophylaxis will be on Lovenox therapy for DVT prevention Admission and Anticipated Discharge Date Admission Date: February 15, 2021 Subjective Patient reports having no BM. She is passing gas. She does feel better. Review of Systems Review of Systems: All systems reviewed & are unremarkable except as noted in HPI & below Physical Exam Physical Exam: The patient appeared thin of stature but appropriate development nutrition Vital signs as documented. Head exam is normocephalic atraumatic Neck is without JVD, thyromegaly, or carotid bruits. Lungs are clear to auscultation, no focal loss of breath sounds Cardiac exam, Rhythm is regular.. No murmurs, rubs or gallops. Abdominal exam reveals normal to hyperactive bowel sounds, soft left lower quadrant tenderness with some guarding no rebound Patient no longer had left-sided CVA angle tenderness Extremities right knee has a healing incision with lino in place there is some erythema but no drainage Neurologic exam is alert and oriented, no focal loss of strength or sensation Skin is with right knee incision as mentioned Psychologically is without concerns for anxiety or depression Results & Data Results & Data ([facility]) Vital Signs (Past 12 Hours) Vital Signs Temp Pulse Resp BP BP Pulse Ox 02/17/21 22:49 37.4 C 63 20 88/49 L 94 02/17/21 16:35 37.0 C 63 16 90/52 L 93 PG Care Time/CCT Total # of Minutes Spent Total Time Spent with Patient: Total time spent is greater than 50% in coordination of care (as documented) at patient's floor/unit and/or counseling patient: Coding Level of Care Code 02400 Subseq Hosp Care Lvl 3 Diagnoses Nausea & vomiting R11.2 Diabetes mellitus, type 2 E11.9 Hyperlipidemia E78.5 Tear of medial meniscus of right knee S83.241A DVT prophylaxis Z29.9 Time Spent (min) 35
[2021-02-18] MEDS: LACTATED RINGER'S 1,000 ML IV SCH ×2 (00:43→13:18)
[2021-02-18] MEDS: ONDANSETRON INJ 2 MG/ML 2 ML VIAL IV PRN (03:46)
[2021-02-18] MEDS: oxyCODONE HCL IR 5 MG TAB (IMMEDIATE RELEASE) PO PRN ×3 (03:46→23:12)
[2021-02-18] MEDS ORDERED: SOD PHOSPHATE/SOD BIPHOSPHATE ENEMA 132 ML BTL PR STA (04:17)
[2021-02-18] MEDS ORDERED: POLYETHYLENE (MIRALAX) 17 GM PACK PO ONE (04:21)
[2021-02-18] MEDS: traMADol HCL 50 MG TABLET PO PRN ×2 (04:37→18:30)
[2021-02-18] MEDS: PIPERACILLIN/TAZOBACTAM 3.375 GM in DEXTROSE 5% 100 ML IV SCH ×3 (06:07→23:12)
[2021-02-18] MEDS: PROMETHAZINE HCL 12.5 MG in SODIUM CHLORIDE 0.9% 50 ML IV PRN ×3 (08:54→23:24)
[2021-02-18] MEDS: INSULIN ASPART 100 UNITS/ML 3 ML PEN SC SCH ×4 (08:57→21:00)
[2021-02-18] MEDS: INSULIN GLARGINE SOLOSTAR 100 UNITS/ML 3 ML PEN SQ SCH (08:57)
[2021-02-18] MEDS: SENNA 8.6 MG TAB PO SCH (09:38)
[2021-02-18] MEDS: PROPRANOLOL HCL 20 MG TAB PO SCH ×2 (09:38→20:50)
[2021-02-18] MEDS: DICYCLOMINE HCL 20 MG TAB PO SCH ×4 (09:38→20:44)
[2021-02-18] MEDS: DOCUSATE SODIUM 100 MG CAP PO SCH ×2 (09:38→20:50)
[2021-02-18] MEDS: POLYETHYLENE (MIRALAX) 17 GM PACK PO SCH ×3 (09:47→20:50)
--- NOTE | 2021-02-18 14:00 | Hospitalist Progress Note ---
Date of Service February 18, 2021 Assessment & Plan (1) Nausea & vomiting: CT a/p on 02/17 showed ileus with possible diverticulitis. However, appetite improved and no further nausea or vomiting. - Given Relistor on 02/17 - Continue bowel regimen - Minimize opioids - Continue Zosyn - Hold off on enema today to avoid any issues given possible diverticulitis. This may also be stool as she has high stool burden in sigmoid colon. (2) Diabetes mellitus, type 2: A1c was 6.0% this admission. - Hold metformin and Trulicity - Continue glargine 7 units QAM - Sliding scale insulin - Blood sugars generally 75 - 120. (3) Hyperlipidemia: Typically will continue to take her atorvastatin 80 (4) Tear of medial meniscus of right knee: S/p right partial knee replacement in 10/[address] Celestin, then a right TKA & I&D on 02/02/2021 due to trouble with the partial knee replacement. - On repeat surgery, a small joint fistula tract was noted which did not appear to be infected. - Finished 7 more days of antibiotics, and then done. - Presently the knee stables look good. Patient reports they are to come out on Saturday. - Consider orthopedic consult on Saturday for evaluation and staple removal. (5) DVT prophylaxis: Lovenox 40 mg SQ daily Admission and Anticipated Discharge Date Admission Date: February 15, 2021 Subjective Still passing some gas, but nothing BM-schwartz except for a small amount after a enema. Still having some cramping abdominal pain. Reports no fevers/chills, chest pain, shortness of breath, or vomiting. Physical Exam Constitutional: WD/WN, vitals as above + acute distress Eyes: EOM intact bilaterally; no conjunctival abnormality ENMT: external ear and nose normal, oropharynx normal Neck: trachea midline, no thyromegaly normal visual inspection Respiratory: normal respiratory effort, lungs clear to auscultation no respiratory distress Cardiovascular: RRR, no murmur, no edema Gastrointestinal (Abdomen): Inspection/Auscultation: abdomen normal to inspection and normal bowel sounds; abdomen not distended Percussion/Palpation: + abdomen tender (Suprapubic area) and abdomen soft; no guarding and abdomen not rigid Musculoskeletal: no cyanosis or clubbing, extremities motor strength 5/5 Skin: no rashes, warm and dry Neurologic: moves all extremities and awake Psychiatric: Orientation: alert, oriented to person and cooperative Results & Data Results & Data ([facility]) Vital Signs (Past 12 Hours) Vital Signs Temp Pulse Resp BP Pulse Ox 02/18/21 07:43 37.0 C 80 18 131/64 95 PG Care Time/CCT Total # of Minutes Spent Total Time Spent with Patient: Total time spent is greater than 50% in coordination of care (as documented) at patient's floor/unit and/or counseling patient: Coding Level of Care Code 54344 Subseq Hosp Care Lvl 2 Diagnoses Nausea & vomiting R11.2 Diabetes mellitus, type 2 E11.9 Hyperlipidemia E78.5 Tear of medial meniscus of right knee S83.241A DVT prophylaxis Z29.9
[2021-02-18] MEDS: ENOXAPARIN INJ 40 MG/0.4 ML SYR SQ SCH (20:44)
[2021-02-19] MEDS: PIPERACILLIN/TAZOBACTAM 3.375 GM in DEXTROSE 5% 100 ML IV SCH ×3 (06:10→22:28)
[2021-02-19 06:12] LABS: Basophils # (auto) 0.03 K/uL (0-0.2); Basophils % (auto) 0.3 %; Eosinophils # (auto) 0.49 K/uL (0-0.5); Eosinophils % (auto) 4.6 %; Hematocrit (blood only) 36.9 % (37-47); Hemoglobin 12.2 g/dL (12.0-16.0); Immature Granulocytes # (auto) 0.03 K/uL (0.00-0.02); Immature Granulocytes % (auto) 0.3 %; Lymphocytes # (auto) 2.47 K/uL (1.2-3.4); Lymphocytes % (auto) 23.3 %; Mean Corpuscular Hemoglobin 32.2 pg (25-34); Mean Corpuscular Hgb Conc 33.1 g/dL (32-36); Mean Corpuscular Volume 97.4 fL (80-100); Mean Platelet Volume 8.9 fL (7.4-10.4); Monocytes # (auto) 1.14 K/uL (0.11-0.59); Monocytes % (auto) 10.8 %; Neutrophils # (auto) 6.42 K/uL (1.4-6.5); Neutrophils % (auto) 60.7 %; Platelet Count 531 K/uL (130-400); RDW Coefficient of Variation 13.9 % (11.5-14.5); Red Blood Count 3.79 M/uL (4.2-5.4); White Blood Count 10.58 K/uL (4.8-10.8)
[2021-02-19 06:41] LABS: Albumin Level 2.9 gm/dl (3.4-5.0); BUN Creatinine Ratio 8.5 (10-20); Calcium 9.4 mg/dl (8.5-10.1); Creatinine Clr Calc Pharmacy 56.2 ml/min; Est GFR (Non-African American) 78.6 ml/min; Magnesium 2.5 mg/dl (1.8-2.4); Potassium 4.1 mmol/L (3.5-5.1)
[2021-02-19 06:44] LABS: Albumin Globulin Ratio 0.7 (0.9-2); Bilirubin,Total 0.3 mg/dl (0.2-1); Globulin 3.9 gm/dl (2.5-4.0); Total Protein 6.8 gm/dl (6.4-8.2)
[2021-02-19] MEDS: SENNA 8.6 MG TAB PO SCH (09:32)
[2021-02-19] MEDS: DICYCLOMINE HCL 20 MG TAB PO SCH ×4 (09:32→22:22)
[2021-02-19] MEDS: PROPRANOLOL HCL 20 MG TAB PO SCH ×2 (09:33→22:22)
[2021-02-19] MEDS: DOCUSATE SODIUM 100 MG CAP PO SCH (09:33)
[2021-02-19] MEDS: METHYLNALTREXONE BROMIDE 12 MG/0.6 ML VIAL SQ SCH (09:34)
[2021-02-19] MEDS: POLYETHYLENE (MIRALAX) 17 GM PACK PO SCH ×2 (09:34→14:08)
[2021-02-19] MEDS: INSULIN ASPART 100 UNITS/ML 3 ML PEN SC SCH ×4 (09:52→22:22)
[2021-02-19] MEDS: INSULIN GLARGINE SOLOSTAR 100 UNITS/ML 3 ML PEN SQ SCH (09:53)
[2021-02-19] MEDS: traMADol HCL 50 MG TABLET PO PRN (09:58)
[2021-02-19] MEDS: LACTATED RINGER'S 1,000 ML IV SCH ×2 (12:45→14:06)
[2021-02-19] MEDS: oxyCODONE HCL IR 5 MG TAB (IMMEDIATE RELEASE) PO PRN (15:00)
[2021-02-19] MEDS: PROMETHAZINE HCL 12.5 MG in SODIUM CHLORIDE 0.9% 50 ML IV PRN (15:01)
--- NOTE | 2021-02-19 15:45 | Hospitalist Progress Note ---
Date of Service February 19, 2021 Assessment & Plan (1) Nausea & vomiting: CT a/p on 02/17 showed ileus with possible diverticulitis. However, appetite improved and no further nausea or vomiting. - Given Relistor on 02/17 - Continue bowel regimen - Minimize opioids - Continue Zosyn - Hold off on enema today to avoid any issues given possible diverticulitis. Possibly having some overflow incontinence at this time. - Will consult surgery to determine whether enema appropriate. (2) Diabetes mellitus, type 2: A1c was 6.0% this admission. - Hold metformin and Trulicity - Continue glargine 7 units QAM - Sliding scale insulin - Blood sugars generally 80 - 120. (3) Tear of medial meniscus of right knee: S/p right partial knee replacement in 10/[address] Celestin, then a right TKA & I&D on 02/02/2021 due to trouble with the partial knee replacement. - On repeat surgery, a small joint fistula tract was noted which did not appear to be infected. - Finished 7 more days of antibiotics, and then done. - Presently the knee stables look good. Patient reports they are to come out on Saturday. - Consider orthopedic consult on Saturday for evaluation and staple removal. (4) Essential tremor: - Continue propranolol (5) Hyperlipidemia: - Continue atorvastatin when return of bowel function (6) DVT prophylaxis: Lovenox 40 mg SQ daily Admission and Anticipated Discharge Date Admission Date: February 15, 2021 Subjective Less cramping pain today. Had 4 small, loose (watery) BM yesterday. Reports no fevers/chills, chest pain, shortness of breath, nausea, or vomiting. Physical Exam Constitutional: WD/WN, vitals as above + acute distress Eyes: EOM intact bilaterally; no conjunctival abnormality ENMT: external ear and nose normal, oropharynx normal Neck: trachea midline, no thyromegaly normal visual inspection Respiratory: normal respiratory effort, lungs clear to auscultation no respiratory distress Cardiovascular: RRR, no murmur, no edema Gastrointestinal (Abdomen): Inspection/Auscultation: abdomen normal to inspection and normal bowel sounds; abdomen not distended Percussion/Palpation: + abdomen tender (Suprapubic area) and abdomen soft; no guarding and abdomen not rigid Musculoskeletal: no cyanosis or clubbing, extremities motor strength 5/5 Skin: no rashes, warm and dry Neurologic: moves all extremities and awake Psychiatric: Orientation: alert, oriented to person and cooperative Results & Data Results & Data ([facility]) Vital Signs (Past 12 Hours) Vital Signs Temp Pulse Resp BP Pulse Ox 02/19/21 08:15 37.0 C 73 16 103/65 96 PG Care Time/CCT Total # of Minutes Spent Total Time Spent with Patient: Total time spent is greater than 50% in coordination of care (as documented) at patient's floor/unit and/or counseling patient: Coding Level of Care Code 49899 Subseq Hosp Care Lvl 2 Diagnoses Nausea & vomiting R11.2 Diabetes mellitus, type 2 E11.9 Tear of medial meniscus of right knee S83.241A Essential tremor G25.0 Hyperlipidemia E78.5 DVT prophylaxis Z29.9
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
[2021-02-19] MEDS: SOD PHOSPHATE/SOD BIPHOSPHATE ENEMA 132 ML BTL PR SCH ×2 (18:38→22:25)
[2021-02-19] MEDS: ENOXAPARIN INJ 40 MG/0.4 ML SYR SQ SCH (22:21)
[2021-02-20] MEDS: oxyCODONE HCL IR 5 MG TAB (IMMEDIATE RELEASE) PO PRN ×2 (00:10→19:57)
[2021-02-20] MEDS: ONDANSETRON INJ 2 MG/ML 2 ML VIAL IV PRN ×2 (00:12→20:25)
[2021-02-20] MEDS ORDERED: MoRPHine SULFATE 2 MG/ML CARP IV ONE (03:00)
[2021-02-20] MEDS: SOD PHOSPHATE/SOD BIPHOSPHATE ENEMA 132 ML BTL PR SCH (06:11)
[2021-02-20] MEDS: PIPERACILLIN/TAZOBACTAM 3.375 GM in DEXTROSE 5% 100 ML IV SCH ×2 (06:11→14:50)
[2021-02-20] MEDS: PROPRANOLOL HCL 20 MG TAB PO SCH ×2 (08:02→20:58)
[2021-02-20] MEDS: DICYCLOMINE HCL 20 MG TAB PO SCH ×4 (08:03→20:58)
[2021-02-20] MEDS: INSULIN ASPART 100 UNITS/ML 3 ML PEN SC SCH ×4 (08:37→22:01)
[2021-02-20] MEDS: INSULIN GLARGINE SOLOSTAR 100 UNITS/ML 3 ML PEN SQ SCH (08:37)
--- NOTE | 2021-02-20 09:43 | Pharmacy Report ---
Pharmacy Glycemic Sign Off Nt - Date of Service February 20, 2021 - Assessment & Plan ASSESSMENT: * No changes to glycemic regimen in >72 hours * BSG's have ranged 78-121 mg/dL over that time * Stressors stable * Discussed w Dr. Page - ALEX to sign off from a glycemic standpoint PLAN FOR INPATIENT GLYCEMIC CONTROL: No changes needed to current regimen. * Continue basal insulin with Lantus 7 units SQ daily * Continue NovoLog per scale ACHS/Q6hrs while NPO * Goal range = 110 140 mg/dl * CF = 45 mg/dl/unit * CR = 1 unit for ever 15 g CHO consumed * Pharmacy is signing off of glycemic consult and will no longer be making adjustments to inpatient regimen. Please feel free to re-consult if needed. Thank you.
[2021-02-20] MEDS: SENNA 8.6 MG TAB PO SCH (09:47)
[2021-02-20 10:23] LABS: Calcium 9.2 mg/dl (8.5-10.1); Creatinine Clr Calc Pharmacy 55.4 ml/min; Est GFR (African American) 89.7 ml/min; Est GFR (Non-African American) 77.4 ml/min; Magnesium 2.3 mg/dl (1.8-2.4); Phosphorus 3.6 mg/dl (2.5-4.9); Potassium 3.6 mmol/L (3.5-5.1)
[2021-02-20] MEDS: traMADol HCL 50 MG TABLET PO PRN (13:48)
[2021-02-20] MEDS: LACTATED RINGER'S 1,000 ML IV SCH ×2 (13:49→14:34)
[2021-02-20] MEDS ORDERED: MINERAL OIL ENEMA 133 ML BTL PR ONE ×2 (14:00→20:00)
--- NOTE | 2021-02-20 16:12 | Hospitalist Progress Note ---
Date of Service February 20, 2021 Assessment & Plan (1) Nausea & vomiting: CT a/p on 02/17 showed ileus with possible diverticulitis. However, appetite improved and no further nausea or vomiting. - Given Relistor on 02/17 & 02/19 - Continue bowel regimen with senna - Minimize opioids - Continued Zosyn until 02/20 (7-day course). Given lower concern for infection, will stop. - Seen by surgery on 02/19 with thought this was stercoral colitis. Recommended Q4h enemas. Initially helped, but have been hard to tolerate. Will continue as able. (2) Diabetes mellitus, type 2: A1c was 6.0% this admission. - Hold metformin and Trulicity - Continue glargine 7 units QAM - Sliding scale insulin - Blood sugars generally 80 - 120. Glycemic pharmacist signed off. (3) Tear of medial meniscus of right knee: S/p right partial knee replacement in 10/[address] Celestin, then a right TKA & I&D on 02/02/2021 due to trouble with the partial knee replacement. - On repeat surgery, a small joint fistula tract was noted which did not appear to be infected. - Finished 7 more days of antibiotics, and then done. - Presently the knee stables look good. - Reached out to orthopedic surgeon on 02/20 re: staple removal vs. consult. No response, but will follow up tomorrow if needed. (4) Essential tremor: - Continue propranolol (5) Hyperlipidemia: - Continue atorvastatin when return of bowel function (6) DVT prophylaxis: Lovenox 40 mg SQ daily Admission and Anticipated Discharge Date Admission Date: February 15, 2021 Subjective Somewhat frustrated today as she is still having no major output. With the enemas yesterday, she did have some solid chunks of stool, but mostly the BMs are still water. In addition, the enemas are quite painful for her and have caused some minor bleeding (mostly blood on the TP) with passing them. Physical Exam Constitutional: WD/WN, vitals as above + acute distress Eyes: EOM intact bilaterally; no conjunctival abnormality ENMT: external ear and nose normal, oropharynx normal Neck: trachea midline, no thyromegaly normal visual inspection Respiratory: normal respiratory effort, lungs clear to auscultation no respiratory distress Cardiovascular: RRR, no murmur, no edema Gastrointestinal (Abdomen): Inspection/Auscultation: abdomen normal to inspection and normal bowel sounds; abdomen not distended Percussion/Palpation: + abdomen tender (Suprapubic area) and abdomen soft; no guarding and abdomen not rigid Musculoskeletal: no cyanosis or clubbing, extremities motor strength 5/5 Skin: no rashes, warm and dry Neurologic: moves all extremities and awake Psychiatric: Orientation: alert, oriented to person and cooperative Results & Data Results & Data ([facility]) Vital Signs (Past 12 Hours) Vital Signs Temp Pulse Resp BP Pulse Ox 02/20/21 07:30 37.2 C 91 H 18 111/71 96 PG Care Time/CCT Total # of Minutes Spent Total Time Spent with Patient: Total time spent is greater than 50% in coordination of care (as documented) at patient's floor/unit and/or counseling patient: Coding Level of Care Code 64148 Subseq Hosp Care Lvl 2 Diagnoses Nausea & vomiting R11.2 Diabetes mellitus, type 2 E11.9 Tear of medial meniscus of right knee S83.241A Essential tremor G25.0 Hyperlipidemia E78.5 DVT prophylaxis Z29.9
[2021-02-20] MEDS: ENOXAPARIN INJ 40 MG/0.4 ML SYR SQ SCH (20:58)
[2021-02-20] MEDS ORDERED: HYDROCORTISONE 1% CRM 30 GM TUBE EXT PRN (23:20)
[2021-02-21] MEDS: traMADol HCL 50 MG TABLET PO PRN ×2 (01:00→13:59)
[2021-02-21 02:33] LABS: Appearance Urine Clear (Clear); Bilirubin Urine Negative (Negative); Blood Urine Negative (Negative); Color Urine Yellow; Glucose Urine UA Negative (Negative); Ketones Urine Negative (Negative); Leukocyte Esterase Urine Negative (Negative); Nitrite Urine Negative (Negative); Protein Urine Negative (Negative); Specific Gravity Urine 1.007 (1.000-1.030); Urobilinogen Urine Negative (Negative)
[2021-02-21] MEDS ORDERED: MAGNESIUM CITRATE 296 ML/BTL PO STA (08:07)
[2021-02-21] MEDS: oxyCODONE HCL IR 5 MG TAB (IMMEDIATE RELEASE) PO PRN ×2 (08:13→16:48)
[2021-02-21] MEDS: ONDANSETRON INJ 2 MG/ML 2 ML VIAL IV PRN ×2 (08:14→16:49)
[2021-02-21] MEDS: INSULIN ASPART 100 UNITS/ML 3 ML PEN SC SCH ×4 (09:15→22:08)
[2021-02-21] MEDS: INSULIN GLARGINE SOLOSTAR 100 UNITS/ML 3 ML PEN SQ SCH (09:17)
[2021-02-21] MEDS: PROPRANOLOL HCL 20 MG TAB PO SCH ×2 (09:18→22:00)
[2021-02-21] MEDS: SENNA 8.6 MG TAB PO SCH (09:19)
[2021-02-21] MEDS: DICYCLOMINE HCL 20 MG TAB PO SCH ×4 (09:19→22:01)
[2021-02-21] MEDS: METHYLNALTREXONE BROMIDE 12 MG/0.6 ML VIAL SQ SCH (09:20)
[2021-02-21] MEDS ORDERED: MINERAL OIL ENEMA 133 ML BTL PR ONE ×2 (10:15→14:00)
--- NOTE | 2021-02-21 15:35 | Hospitalist Progress Note ---
Date of Service February 21, 2021 Assessment & Plan (1) Nausea & vomiting: CT a/p on 02/17 showed ileus with possible diverticulitis. However, appetite improved and no further nausea or vomiting. - Given Relistor on 02/17 & 02/19 - Continue bowel regimen with senna & MgCitrate - Minimize opioids - Continued Zosyn until 02/20 (7-day course). - Seen by surgery on 02/19 with thought this was stercoral colitis. Recommended Q4h enemas. Initially helped, but have been hard to tolerate. Will continue as able. Still only some progress. KUB today and will re-check with surgery if no improvement by tomorrow. (2) Diabetes mellitus, type 2: A1c was 6.0% this admission. - Hold metformin and Trulicity - Continue glargine 7 units QAM - Sliding scale insulin - Blood sugars generally 80 - 120. Glycemic pharmacist signed off. (3) Tear of medial meniscus of right knee: S/p right partial knee replacement in 10/[address] Celestin, then a right TKA & I&D on 02/02/2021 due to trouble with the partial knee replacement. - On repeat surgery, a small joint fistula tract was noted which did not appear to be infected. - Finished 7 more days of antibiotics, and then done. - Reached out to orthopedic surgeon. Seen by Dr. Celestin on 02/20 and happy with present appearance. Emelia removed on 02/21 without incident. (4) Essential tremor: - Continue propranolol (5) Hyperlipidemia: - Continue atorvastatin when return of bowel function (6) DVT prophylaxis: Lovenox 40 mg SQ daily Admission and Anticipated Discharge Date Admission Date: February 15, 2021 Subjective Some "bigger flecks" after the enema yesterday, but still not really passing actual stool. Some bloating after dinner. Reports no fevers/chills, chest pain, shortness of breath, abdominal pain, nausea, or vomiting. Physical Exam Constitutional: WD/WN, vitals as above Eyes: EOM intact bilaterally; no conjunctival abnormality ENMT: external ear and nose normal, oropharynx normal Neck: trachea midline, no thyromegaly normal visual inspection Respiratory: normal respiratory effort, lungs clear to auscultation no respiratory distress Cardiovascular: RRR, no murmur, no edema Gastrointestinal (Abdomen): Inspection/Auscultation: abdomen normal to inspection and normal bowel sounds; abdomen not distended Percussion/Palpation: abdomen soft; abdomen nontender, no guarding and abdomen not rigid Musculoskeletal: no cyanosis or clubbing, extremities motor strength 5/5 Skin: no rashes, warm and dry Neurologic: moves all extremities and awake Psychiatric: Orientation: alert, oriented to person and cooperative Results & Data Results & Data ([facility]) Vital Signs (Past 12 Hours) Vital Signs Temp Pulse Resp BP Pulse Ox 02/21/21 07:13 36.9 C 71 16 102/64 94 PG Care Time/CCT Total # of Minutes Spent Total Time Spent with Patient: Total time spent is greater than 50% in coordination of care (as documented) at patient's floor/unit and/or counseling patient: Coding Level of Care Code 37599 Subseq Hosp Care Lvl 2 Diagnoses Nausea & vomiting R11.2 Diabetes mellitus, type 2 E11.9 Tear of medial meniscus of right knee S83.241A Essential tremor G25.0 Hyperlipidemia E78.5 DVT prophylaxis Z29.9
--- NOTE | 2021-02-21 17:19 | XRay Report ---
XR KUB/Abdomen 1 view CLINICAL HISTORY: Ileus COMPARISON STUDY: 02/17/2021 FINDINGS: There are surgical clips within the right upper quadrant. There is gaseous prominence of th e colon. There are a few minimally prominent small bowel loops. There are scattered colonic stool. Th ere is no conventional radiographic evidence of a high-grade bowel obstruction. IMPRESSION: 1. No conventional radiographic evidence of a bowel obstruction 2. Moderate colonic stool. ACT 112: Negative or not required by law. Electronically signed by: Tacos Garrison M.D. 02/21/2021 5:17 PM
[2021-02-21] MEDS: ACETAMINOPHEN 325 MG TAB PO PRN (19:53)
[2021-02-21] MEDS: ENOXAPARIN INJ 40 MG/0.4 ML SYR SQ SCH (22:01)
[2021-02-22] MEDS: ONDANSETRON INJ 2 MG/ML 2 ML VIAL IV PRN ×2 (02:22→08:09)
[2021-02-22] MEDS: oxyCODONE HCL IR 5 MG TAB (IMMEDIATE RELEASE) PO PRN ×2 (02:22→08:08)
[2021-02-22] MEDS: PROPRANOLOL HCL 20 MG TAB PO SCH ×2 (08:05→20:18)
[2021-02-22] MEDS: DICYCLOMINE HCL 20 MG TAB PO SCH ×4 (08:05→20:19)
[2021-02-22] MEDS: SENNA 8.6 MG TAB PO SCH (08:05)
[2021-02-22] MEDS: INSULIN ASPART 100 UNITS/ML 3 ML PEN SC SCH ×4 (08:57→21:28)
[2021-02-22] MEDS: INSULIN GLARGINE SOLOSTAR 100 UNITS/ML 3 ML PEN SQ SCH (08:57)
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
[2021-02-22 13:19] LABS: Basophils # (auto) 0.03 K/uL (0-0.2); Basophils % (auto) 0.2 %; Eosinophils # (auto) 0.38 K/uL (0-0.5); Eosinophils % (auto) 2.4 %; Hematocrit (blood only) 33.6 % (37-47); Hemoglobin 11.2 g/dL (12.0-16.0); Immature Granulocytes # (auto) 0.08 K/uL (0.00-0.02); Immature Granulocytes % (auto) 0.5 %; Lymphocytes # (auto) 2.57 K/uL (1.2-3.4); Lymphocytes % (auto) 16.5 %; Mean Corpuscular Hemoglobin 31.7 pg (25-34); Mean Corpuscular Hgb Conc 33.3 g/dL (32-36); Mean Corpuscular Volume 95.2 fL (80-100); Mean Platelet Volume 8.9 fL (7.4-10.4); Monocytes # (auto) 1.55 K/uL (0.11-0.59); Neutrophils # (auto) 10.94 K/uL (1.4-6.5); Neutrophils % (auto) 70.4 %; Platelet Count 547 K/uL (130-400); RDW Coefficient of Variation 13.9 % (11.5-14.5); RDW Standard Deviation 48.6 fL (36.4-46.3); Red Blood Count 3.53 M/uL (4.2-5.4); White Blood Count 15.55 K/uL (4.8-10.8)
[2021-02-22] MEDS: CIPROFLOXACIN / D5W 400 MG/200 ML BAG IV SCH (13:51)
[2021-02-22 13:57] LABS: Albumin Globulin Ratio 0.7 (0.9-2); Albumin Level 2.7 gm/dl (3.4-5.0); BUN Creatinine Ratio 15.4 (10-20); Bilirubin,Total 0.2 mg/dl (0.2-1); C Reactive Protein 9.2 mg/dl (0-0.29); Calcium 8.7 mg/dl (8.5-10.1); Creatinine Clr Calc Pharmacy 52.8 ml/min; Est GFR (African American) 84.5 ml/min; Est GFR (Non-African American) 72.9 ml/min; Globulin 3.9 gm/dl (2.5-4.0); Potassium 3.9 mmol/L (3.5-5.1); Total Protein 6.6 gm/dl (6.4-8.2)
[2021-02-22] MEDS: metroNIDAZOLE 500 MG/100 ML BAG IV SCH ×2 (15:53→21:45)
[2021-02-22] MEDS: traMADol HCL 50 MG TABLET PO PRN (17:21)
--- NOTE | 2021-02-22 18:47 | Hospitalist Progress Note ---
Date of Service February 22, 2021 Assessment & Plan (1) Nausea & vomiting: CT a/p on 02/17 showed ileus with possible diverticulitis. However, appetite improved and no further nausea or vomiting. - Given Relistor on 02/17, 02/19, & 02/21 - Continue bowel regimen with senna & MgCitrate - Minimize opioids - Continued Zosyn until 02/20 (7-day course). GI restarted abx on 02/22 for further concern for diverticulitis. - Seen by surgery on 02/19 with thought this was stercoral colitis. Recommended Q4h enemas. Initially helped, but then no further progress. - Discussed with GI on 02/22 who feel diverticulitis more likely. Stopped oxycodone, restarted abx, reduced diet. (2) Diabetes mellitus, type 2: A1c was 6.0% this admission. - Hold metformin and Trulicity - Continue glargine 7 units QAM - Sliding scale insulin - Blood sugars generally 90 - 140. Glycemic pharmacist signed off. (3) Tear of medial meniscus of right knee: S/p right partial knee replacement in 10/[address] Celestin, then a right TKA & I&D on 02/02/2021 due to trouble with the partial knee replacement. - On repeat surgery, a small joint fistula tract was noted which did not appear to be infected. - Finished 7 more days of antibiotics, and then done. - Reached out to orthopedic surgeon. Seen by Dr. Celestin on 02/20 and happy with present appearance. Emelia removed on 02/21 without incident. (4) Essential tremor: - Continue propranolol (5) Hyperlipidemia: - Continue atorvastatin when return of bowel function (6) DVT prophylaxis: Lovenox 40 mg SQ daily Admission and Anticipated Discharge Date Admission Date: February 15, 2021 Subjective Still without any BM today. She did pass the two enemas, but did not actually have any feces with it. Abdominal pain is steady, not much improved from yesterday. Reports no fevers/chills, chest pain, shortness of breath, nausea, or vomiting. Physical Exam Constitutional: WD/WN, vitals as above + acute distress Eyes: EOM intact bilaterally; no conjunctival abnormality ENMT: external ear and nose normal, oropharynx normal Neck: trachea midline, no thyromegaly normal visual inspection Respiratory: normal respiratory effort, lungs clear to auscultation no respiratory distress Cardiovascular: RRR, no murmur, no edema Gastrointestinal (Abdomen): Inspection/Auscultation: abdomen normal to inspection and normal bowel sounds; abdomen not distended Percussion/Palpation: + abdomen tender and abdomen soft; no guarding and abdomen not rigid Musculoskeletal: no cyanosis or clubbing, extremities motor strength 5/5 Skin: no rashes, warm and dry Neurologic: moves all extremities and awake Psychiatric: Orientation: alert, oriented to person and cooperative Results & Data Results & Data ([facility]) Vital Signs (Past 12 Hours) Vital Signs Temp Pulse Resp BP BP Pulse Ox 02/22/21 15:54 37.8 C H 69 16 105/59 L 95 02/22/21 08:01 37.1 C 76 16 113/64 95 PG Care Time/CCT Total # of Minutes Spent Total Time Spent with Patient: Total time spent is greater than 50% in coordination of care (as documented) at patient's floor/unit and/or counseling patient: Coding Level of Care Code 44627 Subseq Hosp Care Lvl 3 Diagnoses Nausea & vomiting R11.2 Diabetes mellitus, type 2 E11.9 Tear of medial meniscus of right knee S83.241A Essential tremor G25.0 Hyperlipidemia E78.5 DVT prophylaxis Z29.9
[2021-02-22] MEDS: ENOXAPARIN INJ 40 MG/0.4 ML SYR SQ SCH (20:19)
[2021-02-22] MEDS: MELATONIN 3 MG TAB PO PRN (22:52)
[2021-02-23] MEDS: traMADol HCL 50 MG TABLET PO PRN ×3 (01:26→17:57)
[2021-02-23] MEDS: CIPROFLOXACIN / D5W 400 MG/200 ML BAG IV SCH ×2 (01:26→12:40)
[2021-02-23] MEDS: metroNIDAZOLE 500 MG/100 ML BAG IV SCH ×3 (05:45→20:40)
[2021-02-23 06:18] LABS: Hemoglobin 10.9 g/dL (12.0-16.0); Mean Corpuscular Hemoglobin 31.6 pg (25-34); Mean Corpuscular Volume 95.7 fL (80-100); Mean Platelet Volume 8.8 fL (7.4-10.4); Platelet Count 541 K/uL (130-400); RDW Coefficient of Variation 13.9 % (11.5-14.5); RDW Standard Deviation 48.4 fL (36.4-46.3); Red Blood Count 3.45 M/uL (4.2-5.4); White Blood Count 13.83 K/uL (4.8-10.8)
[2021-02-23 06:57] LABS: BUN Creatinine Ratio 17.9 (10-20); Calcium 8.5 mg/dl (8.5-10.1); Creatinine Clr Calc Pharmacy 79.2 ml/min; Est GFR (African American) 113.4 ml/min; Est GFR (Non-African American) 97.8 ml/min; Magnesium 2.4 mg/dl (1.8-2.4)
[2021-02-23 06:58] LABS: Phosphorus 3.5 mg/dl (2.5-4.9)
[2021-02-23] MEDS: INSULIN ASPART 100 UNITS/ML 3 ML PEN SC SCH ×4 (08:22→20:42)
[2021-02-23] MEDS: DICYCLOMINE HCL 20 MG TAB PO SCH ×4 (08:23→20:40)
[2021-02-23] MEDS: SENNA 8.6 MG TAB PO SCH (08:24)
[2021-02-23] MEDS: PROPRANOLOL HCL 20 MG TAB PO SCH ×2 (08:24→20:40)
[2021-02-23] MEDS: METHYLNALTREXONE BROMIDE 12 MG/0.6 ML VIAL SQ SCH (08:28)
[2021-02-23] MEDS: INSULIN GLARGINE SOLOSTAR 100 UNITS/ML 3 ML PEN SQ SCH (08:29)
--- NOTE | 2021-02-23 10:12 | XRay Report ---
PA CHEST WITH ABDOMINAL SERIES CLINICAL HISTORY: Obstipation. Generalized abdominal pain. FINDINGS: A PA chest radiograph is compared to study dated 11/14/2020. The heart is mildly enlarged noting ather osclerotic calcification of the thoracic aorta. The pulmonary vasculature is noncongested. Chronic in terstitial thickening is similar to previous. No airspace consolidation or pleural effusion is identi fied. No pneumothorax is seen. The skeletal structures are osteopenic. The bony thorax is grossly int act. Fusion hardware is noted in the lower cervical spine. Supine and erect abdominal radiographs are compared to study dated 02/21/2021 and correlated with abdo erickson CT dated 02/17/2021. Cholecystectomy clips are seen in the right upper quadrant. Moderate to sev ere fecal retention is noted in the colon. There is a nonobstructed abdominal bowel gas pattern. No e vidence of intraperitoneal free air is seen. There are no abnormal abdominal calcifications. Phleboli ths are noted in the pelvis. The lumbosacral spine and bony pelvis appear intact. IMPRESSION: 1. Cardiomegaly with no active disease in the chest. 2. Nonobstructed abdominal bowel gas pattern noting moderate to severe constipation. ACT 112: Negative or not required by law. Electronically signed by: Baltazar Prince M.D. 02/23/2021 10:11 AM
[2021-02-23] MEDS: ONDANSETRON INJ 2 MG/ML 2 ML VIAL IV PRN (10:14)
--- NOTE | 2021-02-23 11:37 | Gastroenterology Progress Note ---
Date of Service February 23, 2021 Assessment & Plan (1) Abdominal pain, LLQ (left lower quadrant): (2) Diverticulitis: I had a long discussion with the patient in regard to ongoing opiate use which is contributory to severe constipation. 1. Continue full liquids today. 2. Recommend continued avoidance of opioid analgesics. 3. Continue Cipro and Flagyl for a total of 10 days. 4. Await clinical response to Relistor. 5. If no response, can consider Fleet enema or suppository today. 6. Encourage ambulation. 7. Rest per primary team. Admission and Anticipated Discharge Date Admission Date: February 15, 2021 Subjective Patient states she is passing flatus after receiving her SQ injection of Relistor. Has not used narcotics today. Abdominal x-ray with persistent with sev ere constipation without obstruction. Review of Systems Constitutional: no fever and no chills Gastrointestinal: as per Subjective / HPI and + abdominal pain Psychiatric: as per Subjective / HPI Physical Exam Constitutional: WD/WN, vitals as above Respiratory: normal respiratory effort, lungs clear to auscultation Cardiovascular: RRR, no murmur, no edema Gastrointestinal (Abdomen): Inspection/Auscultation: + abdomen distended and + hyperactive bowel sounds Percussion/Palpation: + abdomen tender and abdomen soft; abdomen not rigid Psychiatric: A+Ox3, euthymic affect Results & Data Results & Data ([facility]) Vital Signs (Past 12 Hours) Vital Signs Temp Pulse Resp BP Pulse Ox 02/23/21 07:45 37 C 66 16 121/60 91 PG Care Time/CCT Total # of Minutes Spent Total Time Spent with Patient: Total time spent is greater than 50% in coordination of care (as documented) at patient's floor/unit and/or counseling patient: Coding Level of Care Code 30455 Subseq Hosp Care Lvl 3 Diagnoses Abdominal pain, LLQ (left lower quadrant) R10.32 Diverticulitis K57.92
[2021-02-23] MEDS: ENOXAPARIN INJ 40 MG/0.4 ML SYR SQ SCH (20:40)
[2021-02-23] MEDS: MELATONIN 3 MG TAB PO PRN (20:47)
--- NOTE | 2021-02-23 21:41 | Hospitalist Progress Note ---
Date of Service February 23, 2021 Assessment & Plan (1) Nausea & vomiting: CT a/p on 02/17 showed ileus with possible diverticulitis. However, appetite improved and no further nausea or vomiting. - Given Relistor on 02/17, 02/19, & 02/21 - Minimize opioids - Continued Zosyn until 02/20 (7-day course). GI restarted abx on 02/22 for further concern for diverticulitis. - Seen by surgery on 02/19 with thought this was stercoral colitis. Recommended Q4h enemas. Initially helped, but then no further progress. - Discussed with GI on 02/22 who feel diverticulitis more likely. Stopped oxycodone on 02/23, restarted abx, reduced diet. -as only medication that may induce constipation is tramadol. -will await relistor. (2) Diabetes mellitus, type 2: A1c was 6.0% this admission. - Hold metformin and Trulicity - Continue glargine 7 units QAM - Sliding scale insulin - Blood sugars generally 90 - 140. Glycemic pharmacist signed off. (3) Tear of medial meniscus of right knee: S/p right partial knee replacement in 10/[address] Celestin, then a right TKA & I&D on 02/02/2021 due to trouble with the partial knee replacement. - On repeat surgery, a small joint fistula tract was noted which did not appear to be infected. - Finished 7 more days of antibiotics, and then done. - Reached out to orthopedic surgeon. Seen by Dr. Celestin on 02/20 and happy with present appearance. [place] removed on 02/21 without incident. (4) Essential tremor: - Continue propranolol (5) Hyperlipidemia: - Continue atorvastatin when return of bowel function (6) DVT prophylaxis: Lovenox 40 mg SQ daily Admission and Anticipated Discharge Date Admission Date: February 15, 2021 Subjective Patient reports no new symptoms. She reports she is finally passing gas today. Review of Systems Review of Systems: All systems reviewed & are unremarkable except as noted in HPI & below Physical Exam Physical Exam: Constitutional: WD/WN, vitals as above + acute distress Eyes: EOM intact bilaterally; no conjunctival abnormality ENMT: external ear and nose normal, oropharynx normal Neck: trachea midline, no thyromegaly normal visual inspection Respiratory: normal respiratory effort, lungs clear to auscultation no r espiratory distress Cardiovascular: RRR, no murmur, no edema Gastrointestinal (Abdomen): Inspection/Auscultation: abdomen normal to inspection and normal bowel sounds; abdomen not distended Percussion/Palpation: + abdomen MILDLY tender and abdomen soft; no guarding and abdomen not rigid Musculoskeletal: no cyanosis or clubbing, extremities motor strength 5/5 Skin: no rashes, warm and dry Neurologic: moves all extremities and awake Psychiatric: Orientation: alert, oriented to person and cooperative Results & Data Results & Data ([facility]) Vital Signs (Past 12 Hours) Vital Signs Temp Pulse Resp BP Pulse Ox 02/23/21 20:39 68 113/62 02/23/21 14:42 37.3 C 59 L 18 108/61 95 PG Care Time/CCT Total # of Minutes Spent Total Time Spent with Patient: Total time spent is greater than 50% in coordination of care (as documented) at patient's floor/unit and/or counseling patient: Coding Level of Care Code 46390 Subseq Hosp Care Lvl 3 Diagnoses Nausea & vomiting R11.2 Diabetes mellitus, type 2 E11.9 Tear of medial meniscus of right knee S83.241A Essential tremor G25.0 Hyperlipidemia E78.5 DVT prophylaxis Z29.9 Time Spent (min) 35
[2021-02-23] MEDS: ACETAMINOPHEN 325 MG TAB PO PRN (23:01)
[2021-02-24] MEDS: CIPROFLOXACIN / D5W 400 MG/200 ML BAG IV SCH ×2 (01:00→13:43)
[2021-02-24] MEDS: ONDANSETRON INJ 2 MG/ML 2 ML VIAL IV PRN (03:03)
[2021-02-24] MEDS: metroNIDAZOLE 500 MG/100 ML BAG IV SCH ×3 (05:32→23:17)
[2021-02-24] MEDS ORDERED: LORazepam 0.5 MG TAB PO PRN (06:18)
[2021-02-24] MEDS: SENNA 8.6 MG TAB PO SCH (08:14)
[2021-02-24] MEDS: PROPRANOLOL HCL 20 MG TAB PO SCH ×2 (08:14→19:59)
[2021-02-24] MEDS: DICYCLOMINE HCL 20 MG TAB PO SCH ×4 (08:14→19:58)
[2021-02-24] MEDS: traMADol HCL 50 MG TABLET PO PRN ×2 (08:17→20:13)
[2021-02-24] MEDS ORDERED: MAGNESIUM CITRATE 296 ML/BTL PO STA (09:40)
--- NOTE | 2021-02-24 09:42 | Gastroenterology Progress Note ---
Date of Service February 24, 2021 Assessment & Plan (1) Abdominal pain, LLQ (left lower quadrant): (2) Diverticulitis: 1. Magnesium Citrate x 1 now. 2. Add Lactulose 20 g BID. 3. Continued ambulation and narcotic avoidance. 4. If no bm today, recommend consideration of orally enhanced CT evaluation by general surgery. 5. Continue supportive care. Admission and Anticipated Discharge Date Admission Date: February 15, 2021 Subjective Patient still without bowel movement per nursing despite Relistor yesterday. Patient reports frustration with ongoing constipation despite treatments. Passing flatus. Mild LLQ pain but no abdominal firmness or rigidity. Review of Systems Constitutional: no fever and no chills Gastrointestinal: as per Subjective / HPI Musculoskeletal: + back pain Physical Exam Constitutional: WD/WN, vitals as above well developed and well nourished Respiratory: normal respiratory effort, lungs clear to auscultation Cardiovascular: Rate/Rhythm: regular rate and regular rhythm Gastrointestinal (Abdomen): Inspection/Auscultation: + abdomen distended and normal bowel sounds Percussion/Palpation: + abdomen tender (LLQ) and abdomen soft Results & Data Results & Data ([facility]) Vital Signs (Past 12 Hours) Vital Signs Temp Pulse Pulse Resp BP Pulse Ox 02/24/21 07:30 37.3 C 63 18 107/59 L 96 02/23/21 23:30 37.2 C 68 20 96/55 L 94 PG Care Time/CCT Total # of Minutes Spent Total Time Spent with Patient: Total time spent is greater than 50% in coordination of care (as documented) at patient's floor/unit and/or counseling patient: Coding Level of Care Code 59750 Subseq Hosp Care Lvl 3 Diagnoses Abdominal pain, LLQ (left lower quadrant) R10.32 Diverticulitis K57.92
[2021-02-24] MEDS ORDERED: POLYETHYLENE (MIRALAX) 17 GM PACK PO SCH (09:45)
[2021-02-24] MEDS: INSULIN GLARGINE SOLOSTAR 100 UNITS/ML 3 ML PEN SQ SCH (10:41)
[2021-02-24] MEDS: INSULIN ASPART 100 UNITS/ML 3 ML PEN SC SCH ×4 (10:42→21:32)
[2021-02-24] MEDS: LIDOCAINE 5% 1 PATCH TD SCH (15:12)
[2021-02-24] MEDS ORDERED: LORazepam 0.5 MG/1 ML VIAL IV PRN (15:17)
[2021-02-24] MEDS ORDERED: LORazepam 0.5 MG/1 ML VIAL IV STA (15:26)
[2021-02-24] MEDS: LACTULOSE SYRUP 20 GM/30 ML UDC PO SCH (19:59)
[2021-02-24] MEDS: ENOXAPARIN INJ 40 MG/0.4 ML SYR SQ SCH (19:59)
--- NOTE | 2021-02-24 22:02 | Hospitalist Progress Note ---
Date of Service February 24, 2021 Assessment & Plan (1) Nausea & vomiting: CT a/p on 02/17 showed ileus with possible diverticulitis. However, appetite improved and no further nausea or vomiting. - Given Relistor on 02/17, 02/19, & 02/21 - Minimize opioids - Continued Zosyn until 02/20 (7-day course). GI restarted abx on 02/22 for further concern for diverticulitis. - Seen by surgery on 02/19 with thought this was stercoral colitis. Recommended Q4h enemas. Initially helped, but then no further progress. - Discussed with GI on 02/22 who feel diverticulitis more likely. Stopped oxycodone on 02/23, restarted abx, reduced diet. -as only medication that may induce constipation is tramadol. -will await relistor effect. CONT LACTULOSE . (2) Diabetes mellitus, type 2: A1c was 6.0% this admission. - Hold metformin and Trulicity - Continue glargine 7 units QAM - Sliding scale insulin - Blood sugars generally 90 - 140. Glycemic pharmacist signed off. (3) Tear of medial meniscus of right knee: S/p right partial knee replacement in 10/[address] Celestin, then a right TKA & I&D on 02/02/2021 due to trouble with the partial knee replacement. - On repeat surgery, a small joint fistula tract was noted which did not appear to be infected. - Finished 7 more days of antibiotics, and then done. - Reached out to orthopedic surgeon. Seen by Dr. Celestin on 02/20 and happy with present appearance. Emelia removed on 02/21 without incident. (4) Essential tremor: - Continue propranolol (5) Hyperlipidemia: - Continue atorvastatin when return of bowel function (6) DVT prophylaxis: Lovenox 40 mg SQ daily Admission and Anticipated Discharge Date Admission Date: February 15, 2021 Subjective 65 yo female reports passing gas. She reports no bowel movements yet. Review of Systems Review of Systems: All systems reviewed & are unremarkable except as noted in HPI & below Physical Exam Physical Exam: Constitutional: WD/WN, vitals as above Eyes: EOM intact bilaterally; no conjunctival abnormality ENMT: external ear and nose normal, oropharynx normal Neck: trachea midline, no thyromegaly normal visual inspection Respiratory: normal respiratory effort, lungs clear to auscultation no re spiratory distress Cardiovascular: RRR, no murmur, no edema Gastrointestinal (Abdomen): Inspection/Auscultation: abdomen normal to inspection and normal bowel sounds; abdomen not distended Percussion/Palpation: + abdomen MILDLY tender and abdomen soft; no guarding and abdomen not rigid Musculoskeletal: no cyanosis or clubbing, extremities motor strength 5/5 Skin: no rashes, warm and dry Neurologic: moves all extremities and awake Psychiatric: Orientation: alert, oriented to person and cooperative Results & Data Results & Data ([facility]) Vital Signs (Past 12 Hours) Vital Signs Temp Pulse Resp BP Pulse Ox 02/24/21 20:02 37.2 C 77 16 106/64 94 02/24/21 15:16 37.4 C 19 109/55 L 97 PG Care Time/CCT Total # of Minutes Spent Total Time Spent with Patient: Total time spent is greater than 50% in coordination of care (as documented) at patient's floor/unit and/or counseling patient: Coding Level of Care Code 90969 Subseq Hosp Care Lvl 2 Diagnoses Nausea & vomiting R11.2 Diabetes mellitus, type 2 E11.9 Tear of medial meniscus of right knee S83.241A Essential tremor G25.0 Hyperlipidemia E78.5 DVT prophylaxis Z29.9 Time Spent (min) 25
[2021-02-24] MEDS: MELATONIN 3 MG TAB PO PRN (23:17)
[2021-02-24] MEDS: ACETAMINOPHEN 325 MG TAB PO PRN (23:27)
[2021-02-25] MEDS: CIPROFLOXACIN / D5W 400 MG/200 ML BAG IV SCH ×2 (00:26→12:44)
[2021-02-25] MEDS: metroNIDAZOLE 500 MG/100 ML BAG IV SCH ×3 (06:04→21:21)
[2021-02-25 06:21] LABS: Basophils # (auto) 0.03 K/uL (0-0.2); Basophils % (auto) 0.3 %; Eosinophils # (auto) 0.13 K/uL (0-0.5); Eosinophils % (auto) 1.2 %; Hematocrit (blood only) 32.9 % (37-47); Hemoglobin 10.9 g/dL (12.0-16.0); Immature Granulocytes # (auto) 0.03 K/uL (0.00-0.02); Immature Granulocytes % (auto) 0.3 %; Lymphocytes # (auto) 1.96 K/uL (1.2-3.4); Lymphocytes % (auto) 18.6 %; Mean Corpuscular Hemoglobin 31.5 pg (25-34); Mean Corpuscular Hgb Conc 33.1 g/dL (32-36); Mean Corpuscular Volume 95.1 fL (80-100); Mean Platelet Volume 8.9 fL (7.4-10.4); Monocytes # (auto) 1.75 K/uL (0.11-0.59); Monocytes % (auto) 16.7 %; Neutrophils # (auto) 6.61 K/uL (1.4-6.5); Neutrophils % (auto) 62.9 %; Platelet Count 574 K/uL (130-400); RDW Standard Deviation 48.4 fL (36.4-46.3); Red Blood Count 3.46 M/uL (4.2-5.4); White Blood Count 10.51 K/uL (4.8-10.8)
[2021-02-25 06:54] LABS: BUN Creatinine Ratio 15.3 (10-20); Calcium 8.8 mg/dl (8.5-10.1); Creatinine Clr Calc Pharmacy 92.4 ml/min; Est GFR (African American) 119.3 ml/min; Est GFR (Non-African American) 102.9 ml/min; Potassium 3.7 mmol/L (3.5-5.1)
[2021-02-25] MEDS: DICYCLOMINE HCL 20 MG TAB PO SCH ×4 (08:39→20:00)
[2021-02-25] MEDS: LACTULOSE SYRUP 20 GM/30 ML UDC PO SCH ×2 (08:39→20:01)
[2021-02-25] MEDS: PROPRANOLOL HCL 20 MG TAB PO SCH ×2 (08:40→20:01)
[2021-02-25] MEDS: SENNA 8.6 MG TAB PO SCH (08:40)
[2021-02-25] MEDS: LIDOCAINE 5% 1 PATCH TD SCH (08:40)
[2021-02-25] MEDS: METHYLNALTREXONE BROMIDE 12 MG/0.6 ML VIAL SQ SCH (08:42)
[2021-02-25] MEDS: INSULIN GLARGINE SOLOSTAR 100 UNITS/ML 3 ML PEN SQ SCH (08:44)
[2021-02-25] MEDS: INSULIN ASPART 100 UNITS/ML 3 ML PEN SC SCH ×4 (08:46→20:11)
[2021-02-25] MEDS: traMADol HCL 50 MG TABLET PO PRN ×2 (12:53→21:20)
[2021-02-25] MEDS: ONDANSETRON INJ 2 MG/ML 2 ML VIAL IV PRN (15:55)
--- NOTE | 2021-02-25 16:14 | XRay Report ---
KUB CLINICAL HISTORY: CONSTIPATION COMPARISON STUDY: CT of the abdomen and pelvis February 17, 2021. Abdominal series February 23, 2021. FINDINGS: Incidental note is made of cholecystectomy clips. Gas throughout small and large bowel is n oted. There is no evidence for a bowel obstruction. Moderate to large amount of stool within the colo n and rectum is again noted. Amount of stool is similar to prior exam. IMPRESSION: 1. No evidence for a bowel obstruction. 2. Moderate to large amount of stool within the colon and rectum. ACT 112: Negative or not required by law. Electronically signed by: John Johnson M.D. 02/25/2021 4:13 PM
[2021-02-25] MEDS: ENOXAPARIN INJ 40 MG/0.4 ML SYR SQ SCH (20:01)
[2021-02-25] MEDS: ACETAMINOPHEN 325 MG TAB PO PRN (20:10)
--- NOTE | 2021-02-25 22:23 | Hospitalist Progress Note ---
Date of Service February 25, 2021 Assessment & Plan (1) Nausea & vomiting: CT a/p on 02/17 showed ileus with possible diverticulitis. However, appetite improved and no further nausea or vomiting. - Given Relistor on 02/17, 02/19, & 02/21 - Minimize opioids - Continued Zosyn until 02/20 (7-day course). GI restarted abx on 02/22 for further concern for diverticulitis. - Seen by surgery on 02/19 with thought this was stercoral colitis. Recommended Q4h enemas. Initially helped, but then no further progress. - Discussed with GI on 02/22 who feel diverticulitis more likely. Stopped oxycodone on 02/23, restarted abx, reduced diet. -as only medication that may induce constipation is tramadol. Patient had bm -will cont relistor effect. CONT LACTULOSE . (2) Diabetes mellitus, type 2: A1c was 6.0% this admission. - Hold metformin and Trulicity - Continue glargine 7 units QAM - Sliding scale insulin - Blood sugars generally 90 - 140. Glycemic pharmacist signed off. (3) Tear of medial meniscus of right knee: S/p right partial knee replacement in 10/[address] Celestin, then a right TKA & I&D on 02/02/2021 due to trouble with the partial knee replacement. - On repeat surgery, a small joint fistula tract was noted which did not appear to be infected. - Finished 7 more days of antibiotics, and then done. - Reached out to orthopedic surgeon. Seen by Dr. Celestin on 02/20 and happy with present appearance. Emelia removed on 02/21 without incident. (4) Essential tremor: - Continue propranolol (5) Hyperlipidemia: - Continue atorvastatin when return of bowel function (6) DVT prophylaxis: Lovenox 40 mg SQ daily Admission and Anticipated Discharge Date Admission Date: February 15, 2021 Subjective Patient had multiple BM today. Patient is feeling better. Review of Systems Review of Systems: All systems reviewed & are unremarkable except as noted in HPI & below Physical Exam Physical Exam: Constitutional: WD/WN, vitals as above Eyes: EOM intact bilaterally; no conjunctival abnormality ENMT: external ear and nose normal, oropharynx normal Neck: trachea midline, no thyromegaly normal visual inspection Respiratory: normal respiratory effort, lungs clear to auscultation no respiratory distress Cardiovascular: RRR, no murmur, no edema Gastrointestinal (Abdomen): Inspection/Auscultation: abdomen normal to inspection and normal bowel sounds; abdomen not distended Percussion/Palpation: + abdomen MILDLY tender and abdomen soft; no guarding and abdomen not rigid Musculoskeletal: no cyanosis or clubbing, extremities motor strength 5/5 Skin: no rashes, warm and dry Neurologic: moves all extremities and awake Psychiatric: Orientation: alert, oriented to person and cooperative Results & Data Results & Data ([facility]) Vital Signs (Past 12 Hours) Vital Signs Temp Pulse Resp BP Pulse Ox 02/25/21 20:03 70 20 112/65 02/25/21 16:34 37.1 C 69 16 95/63 L 96 PG Care Time/CCT Total # of Minutes Spent Total Time Spent with Patient: Total time spent is greater than 50% in coordination of care (as documented) at patient's floor/unit and/or counseling patient: Coding Level of Care Code 38278 Subseq Hosp Care Lvl 2 Diagnoses Nausea & vomiting R11.2 Diabetes mellitus, type 2 E11.9 Tear of medial meniscus of right knee S83.241A Essential tremor G25.0 Hyperlipidemia E78.5 DVT prophylaxis Z29.9 Time Spent (min) 25
[2021-02-26] MEDS: CIPROFLOXACIN / D5W 400 MG/200 ML BAG IV SCH ×2 (01:16→12:46)
[2021-02-26] MEDS: metroNIDAZOLE 500 MG/100 ML BAG IV SCH ×3 (06:02→22:24)
[2021-02-26] MEDS: LACTULOSE SYRUP 20 GM/30 ML UDC PO SCH ×2 (08:16→21:51)
[2021-02-26] MEDS: PROPRANOLOL HCL 20 MG TAB PO SCH ×2 (08:16→21:51)
[2021-02-26] MEDS: DICYCLOMINE HCL 20 MG TAB PO SCH ×4 (08:16→21:52)
[2021-02-26] MEDS: SENNA 8.6 MG TAB PO SCH (08:17)
[2021-02-26] MEDS: LIDOCAINE 5% 1 PATCH TD SCH (08:17)
[2021-02-26] MEDS: INSULIN ASPART 100 UNITS/ML 3 ML PEN SC SCH ×4 (08:19→21:52)
[2021-02-26] MEDS: INSULIN GLARGINE SOLOSTAR 100 UNITS/ML 3 ML PEN SQ SCH (08:23)
[2021-02-26] MEDS: traMADol HCL 50 MG TABLET PO PRN ×2 (12:45→23:57)
--- NOTE | 2021-02-26 15:21 | XRay Report ---
KUB CLINICAL HISTORY: Constipation. FINDINGS: 2 AP, portable, supine abdominal radiographs are compared to study dated 02/25/2021 and fide elated with abdominal CT dated 02/17/2021. Cholecystectomy clips are seen in the right upper quadrant. There is no radiographic evidence of bowel obstruction. Moderate fecal retention is seen throughout the colon. This has modestly diminished as compared to yesterday. No evidence of intraperitoneal free air is seen on these supine views. No abnormal abdominal calcifications are identified. The skeletal structures are osteopenic and appear intact. IMPRESSION: 1. Moderate colonic fecal retention. This has modestly improved from yesterday. 2. There is no radiographic evidence of bowel obstruction. Electronically signed by: Baltazar Prince M.D. 02/26/2021 3:19 PM
--- NOTE | 2021-02-26 19:05 | Hospitalist Progress Note ---
Date of Service February 26, 2021 Assessment & Plan (1) Somatic dysfunction: Lumbar and pelvis regionsOMT as above. Admission and Anticipated Discharge Date Admission Date: February 15, 2021 Physical Exam Physical Exam: Asked to see in regards to SI joint pain. She notes right SI and buttock pain. MSK/osteopathic structural examsacrum a little bit deep and tender on the right side, right-sided buttocks musculature in the region of piriformis and glutes minimus high tone, tender, decreased range of motioninhibitory pressure and l igamentous articular strainimproved. Left greater than right lumbar paraspinals high tone, tender, decreased range of motioninhibitory pressure and direct myofascialimproved. Patient tolerated well Results & Data Results & Data ([facility]) Vital Signs (Past 12 Hours) Vital Signs Temp Pulse Resp BP Pulse Ox 02/26/21 15:10 99.1 F 60 19 121/69 95 02/26/21 07:13 98.4 F 67 17 93/58 L 96 PG Care Time/CCT Total # of Minutes Spent Total Time Spent with Patient: Total time spent is greater than 50% in coordination of care (as documented) at patient's floor/unit and/or counseling patient: Coding Level of Care Code None Diagnoses Somatic dysfunction M99.09 CPT Codes Musculoskeletal - Musculoskeletal: 030[address] Osteo Scott Tr 1-2 Body regions ([id number])
[2021-02-26] MEDS: ONDANSETRON INJ 2 MG/ML 2 ML VIAL IV PRN (19:15)
[2021-02-26] MEDS: ENOXAPARIN INJ 40 MG/0.4 ML SYR SQ SCH (21:52)
--- NOTE | 2021-02-26 21:59 | Hospitalist Progress Note ---
Date of Service February 26, 2021 Assessment & Plan (1) Nausea & vomiting: CT a/p on 02/17 showed ileus with possible diverticulitis. However, appetite improved and no further nausea or vomiting. - Given Relistor on 02/17, 02/19, & 02/21 - Minimize opioids - Continued Zosyn until 02/20 (7-day course). GI restarted abx on 02/22 for further concern for diverticulitis. - Seen by surgery on 02/19 with thought this was stercoral colitis. Recommended Q4h enemas. Initially helped, but then no further progress. - Discussed with GI on 02/22 who feel diverticulitis more likely. Stopped oxycodone on 02/23, restarted abx, reduced diet. -as only medication that may induce constipation is tramadol. Patient had bm -will cont relistor effect. CONT LACTULOSE Will try to limit tramadol as she normally only goes about once a week. will have see her for OMT. (2) Diabetes mellitus, type 2: A1c was 6.0% this admission. - Hold metformin and Trulicity - Continue glargine 7 units QAM - Sliding scale insulin - Blood sugars generally 90 - 140. Glycemic pharmacist signed off. (3) Tear of medial meniscus of right knee: S/p right partial knee replacement in 10/[address] Celestin, then a right TKA & I&D on 02/02/2021 due to trouble with the partial knee replacement. - On repeat surgery, a small joint fistula tract was noted which did not appear to be infected. - Finished 7 more days of antibiotics, and then done. - Reached out to orthopedic surgeon. Seen by Dr. Celestin on 02/20 and happy with present appearance. Emelia removed on 02/21 without incident. (4) Essential tremor: - Continue propranolol (5) Hyperlipidemia: - Continue atorvastatin when return of bowel function (6) DVT prophylaxis: Lovenox 40 mg SQ daily Admission and Anticipated Discharge Date Admission Date: February 15, 2021 Subjective Patient seen and examined at bedside. Patient reports still having pain in her lower back. She points towards SI joint. Review of Systems Review of Systems: All systems reviewed & are unremarkable except as noted in HPI & below Physical Exam Physical Exam: Constitutional: WD/WN, vitals as above Eyes: EOM intact bilaterally; no conjunctival abnormality ENMT: external ear and nose normal, oropharynx normal Neck: trachea midline, no thyromegaly normal visual inspection Respiratory: normal respiratory effort, lungs clear to auscultation no respiratory distress Cardiovascular: RRR, no murmur, no edema Gastrointestinal (Abdomen): Inspection/Auscultation: abdomen normal to inspection and normal bowel sounds; abdomen not distended Percussion/Palpation: + abdomen MILDLY tender and abdomen soft; no guarding and abdomen not rigid Musculoskeletal: no cyanosis or clubbing, extremities motor strength 5/5, TTP to right SI joint Skin: no rashes, warm and dry Neurologic: moves all extremities and awake Psychiatric: Orientation: alert, oriented to person and cooperative Results & Data Results & Data ([facility]) Vital Signs (Past 12 Hours) Vital Signs Temp Pulse Resp BP Pulse Ox 02/26/21 21:50 37.1 C 78 15 109/65 94 02/26/21 15:10 37.3 C 60 19 121/69 95 PG Care Time/CCT Total # of Minutes Spent Total Time Spent with Patient: Total time spent is greater than 50% in coordination of care (as documented) at patient's floor/unit and/or counseling patient: Coding Level of Care Code 61453 Subseq Hosp Care Lvl 3 Diagnoses Nausea & vomiting R11.2 Diabetes mellitus, type 2 E11.9 Tear of medial meniscus of right knee S83.241A Essential tremor G25.0 Hyperlipidemia E78.5 DVT prophylaxis Z29.9 Time Spent (min) 35 Comment D/W patient and family.
[2021-02-27] MEDS: CIPROFLOXACIN / D5W 400 MG/200 ML BAG IV SCH (00:52)
[2021-02-27] MEDS: metroNIDAZOLE 500 MG/100 ML BAG IV SCH (06:06)
[2021-02-27] MEDS: ACETAMINOPHEN 325 MG TAB PO PRN (06:11)
[2021-02-27] MEDS: PROPRANOLOL HCL 20 MG TAB PO SCH (08:42)
[2021-02-27] MEDS: LIDOCAINE 5% 1 PATCH TD SCH (08:43)
[2021-02-27] MEDS: LACTULOSE SYRUP 20 GM/30 ML UDC PO SCH (08:43)
[2021-02-27] MEDS: DICYCLOMINE HCL 20 MG TAB PO SCH (08:43)
[2021-02-27] MEDS: SENNA 8.6 MG TAB PO SCH (08:43)
[2021-02-27] MEDS: INSULIN ASPART 100 UNITS/ML 3 ML PEN SC SCH (08:44)
[2021-02-27] MEDS: INSULIN GLARGINE SOLOSTAR 100 UNITS/ML 3 ML PEN SQ SCH (08:44)
[2021-02-27] MEDS: METHYLNALTREXONE BROMIDE 12 MG/0.6 ML VIAL SQ SCH (08:46)
--- NOTE | 2021-02-27 11:03 | Discharge Summary ---
Date of Service February 27, 2021 Admission HPI Per Admitting Provider 65-year-old diabetic female recently discharged from our facility February 03 after revision of previous meniscus surgery by Dr. Celestin. 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 This fluid was cultured and was negative however at the time of discharge her final culture result results were not known and the patient went home on Keflex. Initially the patient did well however the last 2 days prior to admission she has had nausea and vomiting and back pain. She also notes that she is not had a bowel movement since before her surgery. He typically goes to the bathroom moving her bowels about 1 time per week. Otherwise she is had no other complaints or problems. she believes her knee is improving In the ER she is found have a white count of 19,000 with a neutrophil shift she also has a CT scan of her abdomen pelvis which has a sigmoid colitis. Interestingly the patient has not had diarrhea in fact as mentioned she has been severely constipated. Upon my review of the CT scan of the abdomen there appears to be a fairly significant amount of fecal load which could be part of her issue. She said no fevers or chills redness or swelling or discharge from her knee Principal Diagnosis nausea and vomiting Discharge Exam Constitutional: WD/WN, vitals as above Eyes: EOM intact bilaterally; no conjunctival abnormality ENMT: external ear and nose normal, oropharynx normal Neck: trachea midline, no thyromegaly normal visual inspection Respiratory: normal respiratory effort, lungs clear to auscultation no respiratory distress Cardiovascular: RRR, no murmur, no edema Gastrointestinal (Abdomen): Inspection/Auscultation: abdomen normal to inspection and normal bowel sounds; abdomen not distended Percussion/Palpation: + abdomen MILDLY tender and abdomen soft; no guarding and abdomen not rigid Musculoskeletal: no cyanosis or clubbing, extremities motor strength 5/5, TTP to right SI joint Skin: no rashes, warm and dry Neurologic: moves all extremities and awake Psychiatric: Orientation: alert, oriented to person and cooperative Discharge Data Allergies Allergy/AdvReac Type Severity Reaction Status Date / Time silver nitrate Allergy Intermediate REDNESS Verified 02/13/21 12:26 AND EXTREME SWELLING WITH DRESSING zinc Allergy Intermediate SWELLING/SKIN Verified 02/13/21 12:26 REACTION codeine AdvReac Mild NAUSEA Verified 02/13/21 12:26 oxycodone [From Percocet] AdvReac Mild n/v Verified 02/13/21 12:26 Consultations 02/13/21 14:00 ED Decision to Admit Stat 02/19/21 15:56 Consult General Surgery Routine 02/22/21 12:18 Consult Gastroenterology Routine Ordered Studies 02/13/21 11:11 CT abd pelvis wo con Stat 02/17/21 12:15 CT abd pelvis IV con only DAILY Hospital Course (1) Nausea & vomiting: CT a/p on 02/17 showed ileus with possible diverticulitis. However, appetite improved and no further nausea or vomiting. - Given Relistor on 02/17, 02/19, & 02/21 - Minimize opioids - Continued Zosyn until 02/20 (7-day course). GI restarted abx on 02/22 for further concern for diverticulitis. - Seen by surgery on 02/19 with thought this was stercoral colitis. Recommended Q4h enemas. Initially helped, but then no further progress. - Discussed with GI on 02/22 who feel diverticulitis more likely. Stopped oxycodone on 02/23, restarted abx, reduced diet. -She was hospitalized for opiod induced constipation complicated bydiverticulitis. -Titrated her off opiods. -will continue intermitttent dosing of tramadol. Patient given relistor during hospital stay. Patient had bm -will cont relistor as an outpatient. CONT LACTULOSE Pain improved with OMT. (2) Diabetes mellitus, type 2: A1c was 6.0% this admission. - Hold metformin and Trulicity - Continue glargine 7 units QAM - Sliding scale insulin - Blood sugars generally 90 - 140. Glycemic pharmacist signed off. (3) Tear of medial meniscus of right knee: S/p right partial knee replacement in 10/[address] Celestin, then a right TKA & I&D on 02/02/2021 due to trouble with the partial knee replacement. - On repeat surgery, a small joint fistula tract was noted which did not appear to be infected. - Finished 7 more days of antibiotics, and then done. - Reached out to orthopedic surgeon. Seen by Dr. Celestin on 02/20 and happy with present appearance. Eugene removed on 02/21 without incident. (4) Essential tremor: - Continue propranolol (5) Hyperlipidemia: - Continue atorvastatin when return of bowel function (6) DVT prophylaxis: Lovenox 40 mg SQ daily Total Time Total Time Spent Total Time Spent (In Minutes): 32 Total Time Includes: Examination of the Patient, Discharge Planning and Medication Reconciliation Discharge Plan Discharge Items Patient Disposition: Home - Self-Care Reason For Visit: COLITIS, LEUKOCYTOSIS, CONSTIPATION Discharge Diagnosis: Colitis/ constipation Activity: Resume your previous activity Non-emergency contact: Primary Care Provider Call non-emergency contact if: you have any medication questions Follow-up/Referrals: Jessica Portillo DO [Primary Care Provider] - 03/07/21 3:40 pm (Danny Argueta PA-C) Diet: Full liquid Addtl Attending Provider Instructions: You were admitted for constipation after you had surgery. This likely worsened your constipation. You slowly recovered once your narcotics were removed as well as getting Relistor. You were also complaining of lower back pain which was treated with Osteopathic manipulation techniques. It appears this has improved your back pain. Will recommend limiting tramadol as you are extremely sensitive to this medication. Will recommend taking a step schwartz approach with your pain: Goal of 4 out of 10 in intensity. If you are at 4 or lower, do not take any pain medicine. You can combine these steps with lidocaine patches. Step 1: Try tylenol Step 2: An NSAID: either Ibuprofen, or Aleve. Take with a full stomach and do not mix between NSAIDs. Step 3: After a few hours if still painful, then consider tramadol. And please take relistor if this is needed. You had a dose of subq relistor here which is good for 2 days. Will recommend cont full liquid diet for next 5 days. If tolerating diet, may consider advancing diet to soft diet. Pending Studies at Discharge: No Stand-Alone Forms: My [employer], Smoking Cessation Medications and DC Order Prescriptions: New dicyclomine 20 mg Tablet 20 mg PO QID 30 Days Qty: 120 RF: 0 acetaminophen 325 mg Tablet 650 mg PO Q4H PRN (Reason: mild pain) Qty: 60 RF: 0 lactulose 20 gram/30 mL Solution 20 g PO BID Qty: 1500 RF: 0 sennosides [Senokot] 8.6 mg Tablet 17.2 mg PO QAM Qty: 30 RF: 0 lidocaine 5 % Adhesive Patch,Medicated 1 patch transdermal QAM Qty: 30 RF: 0 Relistor 150 mg tablet 450 mg PO QAM Qty: 3 RF: 0 amoxicillin-pot clavulanate [Augmentin] 875-125 mg tablet 1 tab PO Q8H 7 Days Qty: 21 RF: 0 Continued (DME) pen needle, diabetic [BD Ultra-Fine Yasmin Pen Needle] 32 gauge x 5/32" needle See Dose Instructions .ROUTE .MEDSUPPLY Qty: 300 RF: 5 ondansetron HCl [Zofran] 4 mg tablet 4 mg PO Q8H PRN (Reason: nausea and vomiting) Qty: 10 RF: 0 atorvastatin 80 mg tablet 80 mg PO QPM Qty: 30 RF: 5 Lantus Solostar U-100 Insulin 100 unit/mL (3 mL) insulin pen 14 unit SQ BID Qty: 45 RF: 1 metformin 1,000 mg tablet 1,000 mg PO BID Qty: 180 RF: 1 valacyclovir [Valtrex] 1 gram tablet 1,000 mg PO UD PRN (Reason: Cold Sores) Qty: 30 RF: 3 propranolol 20 mg tablet 20 mg PO BID Qty: 60 RF: 4 Trulicity 1.5 mg/0.5 mL pen injector 1.5 mg SUBCUT MO RF: 0 tramadol 50 mg tablet 50 mg PO Q8H PRN (Reason: severe pain) Qty: 9 RF: 0 Discontinued oxycodone 5 mg tablet 5 mg PO Q6 PRN (Reason: pain) Qty: 30 RF: 0 Discharge Orders: Discharge Order (Routine); Ordered 02/27/21 Ordered By: Ethan Matt/Other Patient Handouts: Managing Type 2 Diabetes, A1C Admission Data Admit Date/Time: 02/15/21 13:57 Attending Provider: Ethan Elias Admit Provider: Ethan Elias Primary Care Provider: Jessica Portillo Other Providers: Nick Page ; Tami Forman ; Amish Zhang Other Interventions: Discharge Summary Assessment (RN) Last Done: 02/27/21 11:12 Coding Level of Care Code D/C Day Management >30 mins Diagnoses Nausea & vomiting R11.2 Diabetes mellitus, type 2 E11.9 Tear of medial meniscus of right knee S83.241A Essential tremor G25.0 Hyperlipidemia E78.5 DVT prophylaxis Z29.9 Time Spent (min) 32
[2021-02-27] MEDS: traMADol HCL 50 MG TABLET PO PRN (11:43)
== END 2021-02-27 12:20 | disposition home or self-care (01) | DRG 392 ==
LOC: ED 10:45 → 3W 10:45 → SUATTDRO 14:51 → 3W 16:47 → SUATTDRO 02-15 13:57 → 3W 02-16 16:26